=== PATIENT | female | born 1950 | race Caucasian/White ===

== ENCOUNTER 2017-08-09 06:06 | Observation (INO) | payer MEDICARE ==
[2017-08-09] MEDS ORDERED: BENADRYL 50 MG/ML IV ONE (06:19)
[2017-08-09] MEDS ORDERED: Hydromorphone 1 mg/ml Ampule IV ONE (06:19)
--- NOTE | 2017-08-09 06:24 | ERPHSYRPT ---
- History of Present Illness Time Seen by Provider: 08/09/17 06:11 Source: patient Physician History: CC: back pain Hx: 67 y/o patient of BRANDON Castro and Dr Ch. She has hx of DM, CABG last year. She had prior lumbar spine fracture. She fell about a week ago and has progressively worse low lumbar back pain. Could not sleep due to pain. Took medication without relief. She also has nausea and chest pain. She went to [facility] ER Thursday for chest pain and reports CT scan and testing. Was told to get her esophagus checked. She has some increased pain in chest and back with lifting, bending, and exertion. No cough, urinary problems, difficulty breathing. No abd pain. She has nausea. Severity: moderate, severe Allergies/Adverse Reactions: morphine Allergy (Verified 08/09/17 06:41) staets causes pain from head to toe Home Medications: Aspirin [Aspirin EC] 81 mg PO DAILY 05/17/16 [History] Atorvastatin Calcium [Lipitor] 80 mg PO DAILY 05/17/16 [History] Calcium Carbonate/Vitamin D3 [Calcium 600 + Vit D Caplet] 1 each PO DAILY [History] Fluoxetine HCl [Prozac] 60 mg PO DAILY 05/17/16 [History] Metoprolol Succinate 25 mg Xl* [Toprol-Xl 25MG Tablets] 12.5 mg PO BID [History] Insulin Glargine,Hum.rec.anlog [Sonal Reyes] 30 unit SQ DAILY 07/18/16 [ History] Hx Tetanus, Diphtheria Vaccination/Date Given: No Hx Influenza Vaccination/Date Given: No Hx Pneumococcal Vaccination/Date Given: No - Review of Systems Constitutional: No Fever, No Chills Eyes: No Symptoms Ears, Nose, & Throat: No Symptoms Respiratory: No Cough, No Dyspnea Cardiac: Chest Pain Abdominal/Gastrointestinal: Nausea, No Abdominal Pain, No Vomiting, No Diarrhea Genitourinary Symptoms: No Dysuria Musculoskeletal: Back Pain (lumbar), Fall (last week), No Neck Pain Skin: No Rash Neurological: No Dizziness, No Focal Weakness, No Headache, No Parasthesia All Other Systems: Reviewed and Negative - Past Medical History Pertinent Past Medical History: Yes Neurological History: No Pertinent History ENT History: No Pertinent History Cardiac History: Myocardial Infarction (SC), Other Respiratory History: No Pertinent History Endocrine Medical History: Diabetes Type II Musculoskeletal History: Fractures (lumbar) GI Medical History: GERD History: No Pertinent History Psycho-Social History: Depression Female Reproductive Disorders: No Pertinent History Other Medical History: Pacemaker, orthostatic hypertension - Past Surgical History Past Surgical History: Yes Neuro Surgical History: No Pertinent History Cardiac: CABG, Cardiac Catheterization, Cardiac Stent Respiratory: No Pertinent History Gastrointestinal: Cholecystectomy Genitourinary: No Pertinent History Musculoskeletal: No Pertinent History Female Surgical History: Hysterectomy - Social History Smoking Status: Never smoker Exposure to second hand smoke: No Alcohol Use: None Drug Use: none Patient Lives Alone: No Significant Family History: heart disease, hypertension - Nursing Vital Signs Nursing Vital Signs: Initial Vital Signs Temperature 98.0 F 08/09/17 06:06 Pulse Rate 80 08/09/17 06:06 Respiratory Rate 20 08/09/17 06:06 Blood Pressure 180/91 08/09/17 06:06 O2 Sat by Pulse Oximetry 97 08/09/17 06:06 Pain Scale Pain Intensity 6 - Physical Exam General Appearance: alert, other (sallow appearance) Eye Exam: PERRL/EOMI Ears, Nose, Throat Exam: normal ENT inspection, moist mucous membranes Neck Exam: normal inspection, non-tender, supple Respiratory Exam: normal breath sounds, lungs clear Cardiovascular Exam: regular rate/rhythm, No murmur Gastrointestinal/Abdomen Exam: soft, No tenderness, No distention, No mass, No guarding Back Exam: normal inspection, vertebral tenderness (upper lumbar area), No rash Extremity Exam: normal inspection, normal range of motion Neurologic Exam: alert, oriented x 3, cooperative, section hand II-XII nml as tested, sensation nml, No motor deficits Skin Exam: warm, dry, No rash - Course Nursing assessment & vital signs reviewed: Yes EKG Interpreted by Me: RATE (67), Sinus Rhythm, Left [place] Deviation, LAFB, Other (QTc 392; Precordial ST depression similar but more pronounced than that of prior tracing) - Radiology Exams cxr X-ray Interpretation: Interpreted by me (DJD spine, pacemaker, post sternotomy, no acute findings) lumbar X-ray Interpretation: Interpreted by me (Mild L2 anterior compression age undetermined, calcified aorta without aneurysmal dilatation) Ordered Tests: Active Orders 24 hr Category Date Time Status Cath for Specimen-[facility] STAT Care 08/09/17 06:18 Active EKG-ER Only STAT Care 08/09/17 06:17 Active IV Insertion STAT Care 08/09/17 06:17 Active CHEST 2 VIEWS (PA AND LAT) Stat Exams 08/09/17 06:37 Taken LUMBAR LIMITED (2 OR 3 VIEWS) Stat Exams 08/09/17 06:18 Taken CBC W DIFF Stat Lab 08/09/17 06:29 Completed CMP Stat Lab 08/09/17 06:29 Completed LIPASE Stat Lab 08/09/17 06:29 Completed TROPONIN Q3H Lab 08/09/17 06:30 Completed TROPONIN Q3H Lab 08/09/17 09:30 Ordered TROPONIN Q3H Lab 08/09/17 12:30 Ordered TROPONIN Q3H Lab 08/09/17 15:30 Ordered TROPONIN Q3H Lab 08/09/17 18:30 Ordered UA W/RFX UR CULTURE Stat Lab 08/09/17 06:18 Ordered Medication Summary Generic Name Dose Route Start Last Admin Trade Name Freq PRN Reason Stop Dose Admin Sodium Chloride 1,000 mls @ 50 mls/hr 08/09/17 07:00 08/09/17 07:00 Sodium Chloride 0.9% 1000 Ml IV 09/08/17 06:59 50 mls/hr .Q20H GENIA Administration Discontinued Medications Generic Name Dose Route Start Last Admin Trade Name Freq PRN Reason Stop Dose Admin Aspirin 162 mg 08/09/17 06:32 08/09/17 06:59 Baby Aspirin 81 Mg Chew PO 08/09/17 06:33 162 mg STAT ONE Administration Aspirin Confirm 08/09/17 06:47 Baby Aspirin 81 Mg Chew Administered 08/09/17 06:48 Dose 162 mg .ROUTE .STK-MED ONE Diphenhydramine HCl 25 mg 08/09/17 06:19 08/09/17 07:00 Benadryl 50 Mg/Ml IV 08/09/17 06:20 25 mg STAT ONE Administration Diphenhydramine HCl Confirm 08/09/17 06:47 Benadryl 50 Mg/Ml Administered 08/09/17 06:48 Dose 50 mg .ROUTE .STK-MED ONE Hydromorphone HCl 1 mg 08/09/17 06:19 08/09/17 06:59 Hydromorphone 1 Mg/Ml Ampule IV 08/09/17 06:20 1 mg STAT ONE Administration Hydromorphone HCl Confirm 08/09/17 06:47 Hydromorphone 1 Mg/Ml Ampule Administered 08/09/17 06:48 Dose 1 mg .ROUTE .STK-MED ONE Nitroglycerin 1 gm 08/09/17 07:26 08/09/17 07:30 Nitro-Bid 2% Ud Packets TOP 08/09/17 07:27 1 gm STAT ONE Administration Nitroglycerin Confirm 08/09/17 07:27 Nitro-Bid 2% Ud Packets Administered 08/09/17 07:28 Dose 1 gm .ROUTE .STK-MED ONE Ondansetron HCl 4 mg 08/09/17 07:26 08/09/17 07:30 Zofran 4 Mg/2 Ml Vial IV 08/09/17 07:27 4 mg STAT ONE Administration Ondansetron HCl Confirm 08/09/17 07:27 Zofran 4 Mg/2 Ml Vial Administered 08/09/17 07:28 Dose 4 mg .ROUTE .STK-MED ONE Lab/Rad Data: Laboratory Result Diagrams 08/09/17 06:29 08/09/17 06:29 Laboratory Results 08/09/17 08/09/17 08/09/17 Range/Units 06:30 06:29 06:29 WBC 7.0 (4.0-10.5) K/mm3 RBC 4.68 (4.1-5.4) M/mm3 Hgb 12.8 (12.0-16.0) gm/dl Hct 39.8 (35-47) % MCV 85.0 (78-100) fl MCH 27.4 (26-32) pg MCHC 32.2 (32-36) g/dl RDW 13.4 (11.5-14.0) % Plt Count 225 (150-450) K/mm3 MPV 10.0 H (6-9.5) fl Gran % 44.1 (36.0-66.0) % Lymphocytes % 40.5 (24.0-44.0) % Monocytes % 11.0 (0.0-12.0) % Eosinophils % 4.0 (0.00-5.0) % Basophils % 0.4 (0.0-0.4) % Basophils # 0.03 (0-0.4) Sodium 140 (136-145) mEq/L Potassium 4.2 (3.5-5.1) mEq/L Chloride 102 (98-107) mEq/L Carbon Dioxide 28.1 (21-32) mEq/L Anion Gap 13.8 (5-15) MEQ/L BUN 16 (9-20) mg/dL Creatinine 0.95 (0.55-1.30) mg/dl Estimated GFR > 60 ML/MIN Glucose 149 H (70-110) MG/DL Calcium 9.3 (8.5-10.1) mg/dL Total Bilirubin 0.40 (0.2-1.0) mg/dL AST 22 (15-37) U/L ALT 22 (12-78) U/L Alkaline Phosphatase 146 H (46-116) U/L Troponin I < 0.017 (0.000-0.056) ng/ml Serum Total Protein 7.5 (6.4-8.2) gm/dL Albumin 3.5 (3.4-5.0) g/dL Lipase 282 (73-393) U/L - Progress Progress Note: 08/09/17 07:30 Reviewed records from [facility]. CTA chest negative for TAD or PE. There was question of distal esophageal issue. Pt was given dilaudid and benadryl with some improvement in pain. She still has chest pressure. Will add NTG. She has nausea so will give zofran. She agrees for observation. Can get tele consult with Dr Ch. Called Dr Lewis (oc) who will place in tele obs. Discussed with : Debbie Will see patient in: hospital (observation) Counseled pt/family regarding: lab results, diagnosis, need for follow-up, rad results - Departure Time of Disposition: 07:32 Departure Disposition: Observation (Tele) Clinical Impression: Chest pain, rule out acute myocardial infarction, Back pain, L2 compression fracture age indeterminan, Type 2 diabetes mellitus Condition: Fair Critical Care Time: No Referrals: EMELINA CASTRO [Primary Care Provider] -
[2017-08-09] MEDS ORDERED: BABY ASPIRIN 81 MG CHEW PO ONE (06:32)
[2017-08-09 06:33] LABS: BASOPHIL % 0.4 % (0.0-0.4); Granulocytes % 44.1 % (36.0-66.0); Lymphocytes % 40.5 % (24.0-44.0); Mean Corpuscular Hemoglobin 27.4 pg (26-32); Platelet Count 225 K/mm3 (150-450); Red Blood Count 4.68 M/mm3 (4.1-5.4); Red Cell Distribution Width 13.4 % (11.5-14.0)
[2017-08-09] MEDS ORDERED: BENADRYL 50 MG/ML ONE (06:47)
[2017-08-09] MEDS ORDERED: BABY ASPIRIN 81 MG CHEW ONE (06:47)
[2017-08-09] MEDS ORDERED: Hydromorphone 1 mg/ml Ampule ONE (06:47)
[2017-08-09] MEDS ORDERED: Sodium Chloride 0.9% 1000 ML 1,000 ML ONE (06:51)
[2017-08-09] MEDS ORDERED: Sodium Chloride 0.9% 1000 ML 1,000 ML IV SCH (07:00)
[2017-08-09 07:04] LABS: ALBUMIN 3.5 g/dL (3.4-5.0); ALKALINE PHOSPHATASE 146 U/L (46-116); ANION GAP 13.8 MEQ/L (5-15); BLOOD UREA NITROGEN 16 mg/dL (9-20); CHLORIDE 102 mEq/L (98-107); Carbon Dioxide 28.1 mEq/L (21-32); Glucose 149 MG/DL (70-110); LIPASE 282 U/L (73-393); Potassium 4.2 mEq/L (3.5-5.1); SGOT/AST 22 U/L (15-37); SGPT/ALT 22 U/L (12-78); SODIUM 140 mEq/L (136-145); Total Protein 7.5 gm/dL (6.4-8.2)
[2017-08-09] MEDS ORDERED: Zofran 4 MG/2 ML VIAL IV ONE (07:26)
[2017-08-09] MEDS ORDERED: NITRO-BID 2% UD PACKETS TOP ONE (07:26)
[2017-08-09] MEDS ORDERED: Zofran 4 MG/2 ML VIAL ONE (07:27)
[2017-08-09] MEDS ORDERED: NITRO-BID 2% UD PACKETS ONE (07:27)
[2017-08-09] MEDS ORDERED: Pepcid 20 MG VIAL IV ONE ×2 (07:33→07:39)
[2017-08-09 07:43] LABS: ADD URINE CULTURE? YES (NO); Bacteria FEW /HPF (NEGATIVE); Bilirubin NEGATIVE (NEGATIVE); COMPLETE URINE MICROSCOPIC? YES; Collection Type CATH; Glucose NEGATIVE (NEGATIVE); Leukocyte Esterase TRACE (NEGATIVE); WBC 0-2 /HPF (0-5)
--- NOTE | 2017-08-09 07:58 | XRAY ---
Indication: Chest/back pain. Comparison: May 17, 2016. PA/lateral chest remains clear. Heart is not enlarged again demonstrating previous CABG surgery. New left-sided dual-lead pacemaker without complications. Bony thorax intact again with mild degenerative changes. Impression: Nonacute chest.
--- NOTE | 2017-08-09 08:00 | XRAY ---
Indication: Back pain. Comparison: CT lumbar spine January 25, 2016. 3 views of the lumbar spine again demonstrates normal alignment, minimal multilevel degenerative endplate spurring, mild remote appearing superior L2 endplate fracture, and scattered aortoiliac calcifications. No new/acute findings.
[2017-08-09] MEDS ORDERED: MAALOX ES 30 ML UNIT DOSE PO PRN (08:07)
[2017-08-09] MEDS ORDERED: MILK OF MAGNESIA 30 ML PO PRN (08:07)
[2017-08-09] MEDS ORDERED: NovoLOG Insulin SQ PRN (08:07)
[2017-08-09] MEDS ORDERED: Senokot-S Tablet PO PRN (08:07)
[2017-08-09] MEDS ORDERED: Zofran 4 MG/2 ML VIAL IV PRN (08:07)
[2017-08-09] MEDS ORDERED: TYLENOL 325 MG PO PRN (08:07)
[2017-08-09] MEDS ORDERED: Sodium Chloride 0.9% 500 ML 500 ML IV SCH (08:07)
[2017-08-09] MEDS ORDERED: Ecotrin 325 MG PO SCH (10:00)
[2017-08-09] MEDS: Pepcid 20 MG VIAL IV SCH ×2 (10:26→22:22)
--- NOTE | 2017-08-09 12:03 | PCM.SSS ---
History of Present Illness - Chief Complaint Chief Complaint: Chest Pain r/o DC, Back pain, L2 compression, DM II History of Present Illness: is a 67 year old female pt with PMHx DM, CAD with hx DC, CABG and pacemaker; pt of Emelina Castro NP, who came to ER c/o chest pain. Pain started 2d ago, substernal/central, aching, 6/10, radiating to bilat shoulders and arms , with nausea, no SOB, + palpitations. Lasted several hours at a time; intermittent. She had been c/o back pain (approx T10) all week. he had a fall 1 week ago. Hx remote lumbar fx. She had been to the ER on 08/04/17 at [facility] and had CT of the chest, neg for PE. However it showed linear debris in the distal esophagus; they recommended follow up with fluoroscopic esophogram (she has an EKG scheduled for Oct 10, 2017). - Review of Systems Cardiac: Chest Pain, Palpitations Abdominal/Gastrointestinal: Nausea (chronic), Diarrhea (x1 here) Musculoskeletal: Back Pain Neurological: Dizziness (chronic) Psychological: Anxiety, No Depression, No Suicidal Ideations, No Homicidal Ideations All Other Systems: Reviewed and Negative Medications & Allergies Home Medications: Home Medication List Atorvastatin Calcium [Lipitor] 80 mg PO DAILY 05/17/16 [History Confirmed ] Fluoxetine HCl [Prozac] 40 mg PO DAILY 05/17/16 [History Confirmed 08/09/17] Insulin Glargine,Hum.rec.anlog [Sonal Reyes] 50 unit SQ QAM 07/18/16 [ History Confirmed 08/09/17] Hydrocodone Bit/Acetaminophen [[place] 5-325 Tablet] 1 tab PO Q4HPRN PRN 08/09/17 [History Confirmed 08/09/17] Meloxicam 7.5 mg PO DAILY 08/09/17 [History Confirmed 08/09/17] Metoclopramide HCl [Reglan] 10 mg PO TID 08/09/17 [History Confirmed 08/09/17] Allergies/Adverse Reactions: Allergies Allergy/AdvReac Type Severity Reaction Status Date / Time morphine Allergy Verified 08/09/17 06:41 - Past Medical History Past Medical History: Yes Neurological History: No Pertinent History ENT History: Other Cardiac History: Angina, Coronary Artery Disease, Hypertension, Myocardial Infarction (DC), Other Respiratory History: No Pertinent History Endocrine Medical History: Diabetes Type II Musculoskelatal History: Fractures, Osteoarthritis GI Medical History: GERD History: No Pertinent History Pyscho-Social History: Depression Reproductive Disorders: Other Comment: Pacemaker, orthostatic hypertension, CABG, fx L2, states vision needs checked- has been having trouble seeing - Female History Are you now?: No - Past Surgical History Past Surgical History: Yes Neuro Surgical History: No Pertinent History Cardiac History: CABG, Cardiac Catheterization, Cardiac Stent Respiratory Surgery: No Pertinent History GI Surgical History: Cholecystectomy Genitourinary Surgical Hx: No Pertinent History Musculskeletal Surgical Hx: No Pertinent History Female Surgical History: Hysterectomy - Social History Smoking Status: Never smoker Exposure to second hand smoke: No Alcohol: None Drug Use: none Significant Family History: heart disease, hypertension - Physical Exam Vital Signs: Vital Signs - 24 hr Temp Pulse Resp BP Pulse Ox 08/09/17 11:14 98.2 F 64 16 94/50 94 L 08/09/17 08:31 97.7 F 65 16 133/63 94 L 08/09/17 08:07 97.7 F 65 16 133/63 94 L 08/09/17 07:37 65 152/67 95 08/09/17 07:20 64 20 168/91 98 08/09/17 06:06 98.0 F 80 20 180/91 97 General Appearance: no apparent distress, alert, obese Neurologic Exam: oriented x 3, cooperative Eye Exam: eyes nml inspection Ears, Nose, Throat Exam: moist mucous membranes Neck Exam: normal inspection, supple Respiratory Exam: normal breath sounds, lungs clear, No crackles/rales, No rhonchi, No wheezing Cardiovascular Exam: regular rate/rhythm, normal heart sounds, No murmur Gastrointestinal/Abdomen Exam: soft, normal bowel sounds, tenderness (diffuse generalized mild) Back Exam: normal inspection, No rash Extremity Exam: normal inspection, No pedal edema, No swelling Skin Exam: normal color, warm, dry, No rash Results - Labs Lab/Micro Results: Accuchecks Date 08/09/17 Time 11:30 Accucheck Value: 122 Lab Results-Last 24 Hours 08/09/17 Range/Units 09:35 Troponin I < 0.017 (0.000-0.056) ng/ml Accuchecks Date 08/09/17 Time 11:30 Accucheck Value: 122 - Other Procedures and Tests Respiratory Therapy 08/09/17 14:30 EKG ONCE 08/10/17 05:00 EKG ONCE 08/11/17 05:00 EKG ONCE 08/12/17 05:00 EKG ONCE Assessment/Plan (1) Chest pain, rule out acute myocardial infarction Current Visit: Yes Status: Acute Assessment & Plan: The Troponins are negative x 2. After 5 negative troponins will likely d/c home to f/u with Emelina Castro. Code(s): R07.9 - CHEST PAIN, UNSPECIFIED (2) Back pain Current Visit: Yes Status: Acute Qualifiers: Back pain location: thoracic back pain Chronicity: acute Back pain laterality: midline Qualified Code(s): M54.6 - Pain in thoracic spine Assessment & Plan: Will do thoracic xr. Likley just exacerbation of arthritic back pain due to recent fall. Will change IV to po pain meds, if she tolerates them well later today she may be able to d/c home. Code(s): M54.9 - DORSALGIA, UNSPECIFIED (3) Type 2 diabetes mellitus Current Visit: Yes Status: Acute Qualifiers: Diabetes mellitus complication status: without complication Diabetes mellitus roasterman insulin use: without roasterman use Qualified Code(s): E11.9 - Type 2 diabetes mellitus without complications Assessment & Plan: BS 122 here (4) Coronary artery disease Current Visit: No Status: Acute Qualifiers: Coronary Disease-Associated Artery/Lesion type: bypass graft [place] vs. transplanted heart: [place] heart Associated angina: with unspecified angina Qualified Code(s): I25.709 - Atherosclerosis of coronary artery bypass graft(s) , unspecified, with unspecified angina pectoris Code(s): I25.10 - ATHSCL HEART DISEASE OF [place] CORONARY ARTERY W/O ANG PCTRS (5) Esophageal abnormality Current Visit: Yes Status: Acute Assessment & Plan: On CT scan, unable to characterize per report (from 08/04/17) - will have pt follow up outpatient with Emelina You. The suggestion in the CT report was to f /u with an fluoroscopic esophagram. Code(s): K22.9 - DISEASE OF ESOPHAGUS, UNSPECIFIED Hospital Summary - Hospital Course Hospital Course: Pt admitted with CP and back pain, troponins are negative so far. XR lumbar spine neg for acute fracture; will XR thoracic spine. If troponins continue to be negative and her back pain is controlled on po meds will d/c home for f/u with Emelina Castro. Of note, her recent CT chest from [facility] showed linear densities in the esophagus; possibly food bolus but vs mass so needs outpatient follow up. She is scheduled for EGD on Oct 10, 2017. - Vitals & Intake/Output Vital Signs: Vital Signs Temperature 98.2 F 08/09/17 11:14 Pulse Rate 64 08/09/17 11:14 Respiratory Rate 16 08/09/17 11:14 Blood Pressure 94/50 08/09/17 11:14 O2 Sat by Pulse Oximetry 94 L 08/09/17 11:14 Intake & Output: Intake & Output 08/06/17 08/07/17 08/08/17 08/09/17 11:59 11:59 11:59 11:59 Intake Total 480 Output Total 300 Balance 180 Weight 76.345 kg - Lab Result Diagrams: 08/09/17 06:29 08/09/17 06:29 Lab Results-Last 24 Hrs: Accuchecks Date 08/09/17 Time 11:30 Accucheck Value: 122 Lab Results-Last 24 Hours 08/09/17 Range/Units 09:35 Troponin I < 0.017 (0.000-0.056) ng/ml Micro Results-Entire Visit: Accuchecks Date 08/09/17 Time 11:30 Accucheck Value: 122 - Procedures and Test Procedures and Tests throughout Hospitalization: Therapy Orders & Screens 08/09/17 08:58 OT Screen per Nursing Assess Comment: Protocol Order Physician Instructions: Greater than 3 points order OT Admission Screening Reason For Exam: Triggered on Admission Diagnosis: Chest Pain r/o DC, Back pain, L2 compression, DM II Open Wound/Cellutlitis/Pressure Ulcers: No Acute Fx/ORIF/Change in wt bearing status: No Severe MUSCULOSKELETAL pain: Yes ADL Dysfunction: Yes Acute CVA w/Hemiparesis/Hemiplegia: No Decreased Functional Mobility/Strength: Yes Sprain/Strain: No Acute Post-op Mobility Dysfunction: No Total Points: 9 PT Screen per Nursing Assess Comment: Protocol Order Physician Instructions: Greater than 3 points order PT Admission Screenin Reason For Exam: Triggered on Admission Diagnosis: Chest Pain r/o DC, Back pain, L2 compression, DM II Open Wound/Cellutlitis/Pressure Ulcers: No Acute Fx/ORIF/Change in wt bearing status: No Severe MUSCULOSKELETAL pain: Yes ADL Dysfunction: Yes Acute CVA w/Hemiparesis/Hemiplegia: No Decreased Functional Mobility/Strength: Yes Sprain/Strain: No Acute Post-op Mobility Dysfunction: No Total Points: 9 ST Screen per Nursing Assess Comment: Protocol Order Physician Instructions: Greater than [address] Admission Screening Reason For Exam: Triggered on Admission Diagnosis: Chest Pain r/o DC, Back pain, L2 compression, DM II CVA/Dyshpagia/Aphasia: No Cognitive Deficits: No Dehydration/Nutrition Deficit: No Reflux: Yes Oral-Motor Difficulties: Yes Pneumonia: No Retirement Resident: No Total Points: 6 08/09/17 14:30 EKG ONCE Comment: 08/10/17 05:00 EKG ONCE Comment: 08/11/17 05:00 EKG ONCE Comment: 08/12/17 05:00 EKG ONCE Comment: - Discharge Disposition: Home, Self-Care Condition: Stable Prescriptions: No Action Fluoxetine HCl [Prozac] 40 mg PO DAILY Atorvastatin Calcium [Lipitor] 80 mg PO DAILY Insulin Glargine,Hum.rec.anlog [Sonal Reyes] 50 unit SQ QAM Meloxicam 7.5 mg PO DAILY Hydrocodone Bit/Acetaminophen [[place] 5-325 Tablet] 1 tab PO Q4HPRN PRN PRN Reason: Pain Metoclopramide HCl [Reglan] 10 mg PO TID Follow up with: EMELINA CASTRO [Primary Care Provider] -
[2017-08-09] MEDS ORDERED: Norco 10/325 MG Tablet PO PRN (13:07)
[2017-08-09] MEDS: NITRO-BID 2% UD PACKETS TOP SCH ×2 (13:19→22:21)
[2017-08-09] MEDS ORDERED: POTASSIUM CHLORIDE 20 mEq IN WATER 100ML 20 MEQ/100 ML BAG IV ONE (13:33)
[2017-08-09] MEDS ORDERED: Mobic 7.5 MG PO PRN (14:21)
[2017-08-09] MEDS ORDERED: Reglan 10 MG PO PRN (14:47)
[2017-08-09] MEDS ORDERED: NORCO 5/325 MG PO PRN (14:47)
[2017-08-09] MEDS ORDERED: Lantus Insulin SQ SCH (15:00)
[2017-08-09] MEDS ORDERED: ENOXAPARIN SODIUM SQ SCH (15:15)
[2017-08-09] MEDS: Prozac 20 MG PO SCH ×2 (15:39→15:52)
--- NOTE | 2017-08-09 19:44 | XRAY ---
Indication: Mid back pain. Patient fell one week ago. Comparison: CT thoracic spine January 25, 2016. AP/lateral thoracic spine again demonstrates remote T2 and T10-T12 endplate fractures with mild anterior endplate spurring. No new acute fracture, subluxation, or suspicious bony lesions. Heart is not enlarged and demonstrates interval CABG surgery and new left-sided dual-lead pacemaker. Comment: Preliminary interpretation was made by C. No discrepancy.
[2017-08-09 20:06] VITALS: BP 138/66; PULSE 61; O2SAT 94
--- NOTE | 2017-08-09 20:49 | PCM.DCORD ---
- Discharge Disposition: Home, Self-Care Condition: Stable Prescriptions: Continue Fluoxetine HCl [Prozac] 40 mg PO DAILY Atorvastatin Calcium [Lipitor] 80 mg PO DAILY Insulin Glargine,Hum.rec.anlog [Sonal Reyes] 50 unit SQ QAM Meloxicam 7.5 mg PO DAILY Hydrocodone Bit/Acetaminophen [[place] 5-325 Tablet] 1 tab PO Q4HPRN PRN PRN Reason: Pain Metoclopramide HCl [Reglan] 10 mg PO TID Follow up with: EMELINA CASTRO [Primary Care Provider] -
[2017-08-09] MEDS ORDERED: ZOCOR 20MG PO SCH (22:00)
[2017-08-10] MEDS ORDERED: NON-FORMULARY ITEM (Atorvastatin Calcium [Lipitor] 80 MG) PO SCH (10:00)
[2017-08-10] MEDS ORDERED: INSULIN GLARGINE HUM REC ANLOG 50 UNIT SQ SCH (10:00)
[2017-08-10] MEDS ORDERED: FLUZONE HIGH-DOSE 2017-18 SYR IM ONE (10:00)
== END 2017-08-09 22:05 | disposition home or self-care (01) ==
LOC: ED 06:06 → MED SURG 08:05
PROVIDERS: ADMIT Family Medicine; ATTEND Family Medicine
DX: R07.9 Chest pain, unspecified (principal); M54.6 Pain in thoracic spine; E11.9 Type 2 diabetes mellitus without complications; I25.709 Atherosclerosis of coronary artery bypass graft(s), unspecified, with unspecified angina pectoris; K22.9 Disease of esophagus, unspecified; Z79.899 Other long term (current) drug therapy
CPT/HCPCS: 82962; 93268; 96374; 99285; 36000; 96360; 96375; 93005 ×2; 81000; 36415; 83036; 83690; 85025; 80053; 84484; 87086; 71020; 72100; 72072; P9612; G0378; J1170; J1200; J1650; J2405; A9270-GY

== ENCOUNTER 2018-06-20 03:49 | Emergency (ER) | payer MEDICARE ==
[2018-06-20] MEDS ORDERED: Catapres 0.1 MG PO ONE (04:29)
[2018-06-20] MEDS ORDERED: NORCO 5/325 MG PO ONE (04:32)
--- NOTE | 2018-06-20 04:43 | ERPHSYRPT ---
- History of Present Illness Time Seen by Provider: 06/20/18 04:10 Source: patient Exam Limitations: clinical condition Patient Subjective Stated Complaint: head, neck, and back pain. fell backwards on walker approx 1930 on 06/19/2018 Triage Nursing Assessment: Pt fell backwards on walker and c/o head, neck and back pain, back pain is just below both shoulder blades, no lacerations or visible bruising, no lumps, stated that she falls often, no difficulties with strength, reports numbness and tingling in arms and legs periodically-this is a chronic issue, BP 194/91 Physician History: PATIENT WITH A HISTORY OF CORONARY ARTERY DISEASE, HYPERTENSION, FREQUENT FALLS FOR MONTHS, FELL BACKWARDS AGAINST WALL WHILE USING WALKER STRIKING THE BACK OF HER HEAD, NECK AND UPPER BACK. PATIENT COMPLAINS OF HEADACHE, DENIES LOSS OF CONSCIOUSNESS, NUMBNESS, TINGLING OR WEAKNESS IN EXTREMITIES. Occurred: just prior to arrival Reason for Fall: lost balance, fell from standing pos Injuries/Pain Location: head, neck, back Loss of Consciousness: no loss of consciousness Quality: throbbing Severity of Pain-Max: moderate Severity of Pain-Current: moderate Modifying Factors: Improves With: movement Associated Symptoms (Fall): back pain, headache, neck pain ( ) Allergies/Adverse Reactions: metoclopramide Allergy (Verified 06/20/18 04:12) morphine Allergy (Verified 06/20/18 04:08) staets causes pain from head to toe Home Medications: Atorvastatin Calcium [Lipitor] 80 mg PO DAILY 05/17/16 [History] Fluoxetine HCl [Prozac] 60 mg PO DAILY 05/17/16 [History] Insulin Glargine,Hum.rec.anlog [Sonal Reyes] 50 unit SQ QAM 07/18/16 [ History] Meloxicam 7.5 mg PO DAILY PRN 08/09/17 [History] Isosorbide Mononitrate [Isosorbide Mononitrate ER] 60 mg PO DAILY 06/20/18 [ History] Ondansetron 8 mg Odt [Ondansetron Odt 8 mg] 8 mg PO UD PRN 06/20/18 [ History] Hx Tetanus, Diphtheria Vaccination/Date Given: No Hx Influenza Vaccination/Date Given: No Hx Pneumococcal Vaccination/Date Given: No - Review of Systems Constitutional: No Fever, No Chills Eyes: No Symptoms Ears, Nose, & Throat: No Symptoms Respiratory: No Symptoms, No Cough, No Dyspnea Cardiac: No Symptoms, No Chest Pain, No Edema, No Syncope Abdominal/Gastrointestinal: No Symptoms, No Abdominal Pain, No Nausea, No Vomiting, No Diarrhea Genitourinary Symptoms: No Symptoms, No Dysuria Musculoskeletal: Back Pain, Neck Pain, Injury Skin: No Rash Neurological: Headache, No Dizziness, No Focal Weakness, No Sensory Changes Psychological: No Symptoms Endocrine: No Symptoms All Other Systems: Reviewed and Negative - Past Medical History Pertinent Past Medical History: Yes Neurological History: No Pertinent History ENT History: Other Cardiac History: Arrhythmia, Hypertension, Myocardial Infarction ([place]) Respiratory History: No Pertinent History Endocrine Medical History: Diabetes Type II Musculoskeletal History: Fractures, Osteoarthritis GI Medical History: GERD History: No Pertinent History Psycho-Social History: Depression Female Reproductive Disorders: Other Other Medical History: Pacemaker, Orthostatic hypotension, - Past Surgical History Past Surgical History: Yes Neuro Surgical History: No Pertinent History Cardiac: CABG, Cardiac Catheterization, Cardiac Stent Respiratory: No Pertinent History Gastrointestinal: Cholecystectomy Genitourinary: No Pertinent History Musculoskeletal: No Pertinent History Female Surgical History: Hysterectomy - Social History Smoking Status: Never smoker Exposure to second hand smoke: No Alcohol Use: None Drug Use: none Patient Lives Alone: No Significant Family History: heart disease, hypertension - Nursing Vital Signs Nursing Vital Signs: Initial Vital Signs Temperature 97.6 F 06/20/18 03:57 Pulse Rate 60 06/20/18 03:57 Blood Pressure 198/92 06/20/18 03:57 O2 Sat by Pulse Oximetry 98 06/20/18 03:57 Pain Scale Pain Intensity 7 - [place] Coma Score Best Eye Response ([place]): (4) open spontaneously Best Verbal Response ([place]): (5) oriented Best Motor Response ([place]): (6) obeys commands [place] Total: 15 - Physical Exam General Appearance: no apparent distress, alert Head Injury: tenderness (OCCIPITAL SCALP TENDERNESS) Eye Exam: PERRL/EOMI ENT Exam: airway nml Neck Exam: normal inspection, other (THERE IS POST CERVICAL SPINAL TENDERNESS), No tenderness Respiratory/Chest Exam: normal breath sounds, No chest tenderness, No respiratory distress Cardiovascular Exam: normal heart sounds, regular rate/rhythm Gastrointestinal Exam: soft, normal bowel sounds, No tenderness, No distention, No guarding, No ecchymosis Back Exam: normal inspection, normal range of motion, other (THERE IS THORACIC T -1 TO T-4 VERTEBRAL AND PARASPINAL TENDERNESS), No vertebral tenderness Extremity Exam: normal inspection, normal range of motion, pelvis stable, No deformities Peripheral Pulses: carotid (R): 2+, carotid (L): 2+, femoral (R): 2+, femoral (L ): 2+, dorsalis-pedis (R): 2+, dorsalis-pedis (L): 2+ Neurologic Exam: alert, oriented x 3, cooperative, sensation nml, No motor deficits Skin Exam: normal color, warm, dry SpO2 Interpretation: normal SpO2: 98 Oxygen Delivery: Room Air - CT Exams Head CT Interpretation: Tele-radiologist Report, No/Intracranial Hemorrhag Cervical Spine CT Interpretation: Tele-radiologist Report (NO ACUTE FINDINGS, THE MILD COMPRESSION AND LARGE SCHMORL'S NODE AT T2 APPEAR NORMAL) Thoracic Spine CT Interpretation: Tele-radiologist Report (MILD TO MODERATE COMPRESSION OF T2, T10,T11 AND L2 APPEAR CHRONIC) Ordered Tests: Active Orders 24 hr Category Date Time Status CERVICAL SPINE WO CONTRAST [CT] Stat Exams 06/20/18 04:24 Taken HEAD WITHOUT CONTRAST [CT] Stat Exams 06/20/18 04:24 Taken THORACIC SPINE W/O CONTRAST [CT] Stat Exams 06/20/18 04:25 Ordered BMP Stat Lab 06/20/18 05:30 Received CBC W DIFF Stat Lab 06/20/18 05:30 Completed Medication Summary Discontinued Medications Generic Name Dose Route Start Last Admin Trade Name Maribell PRN Reason Stop Dose Admin Hydrocodone Bitart/Acetaminophen 1 tab 06/20/18 04:32 06/20/18 05:17 [place] 5/325 Mg PO 06/20/18 04:33 1 tab STAT ONE Administration Hydrocodone Bitart/Acetaminophen Confirm 06/20/18 05:16 [place] 5/325 Mg Administered 06/20/18 05:17 Dose 1 tab .ROUTE .STK-MED ONE Clonidine 0.2 mg 06/20/18 04:29 06/20/18 05:17 Catapres 0.1 Mg PO 06/20/18 04:30 0.2 mg STAT ONE Administration Clonidine Confirm 06/20/18 05:16 [place] 0.1 Mg Administered 06/20/18 05:17 Dose 0.2 mg .ROUTE .STK-MED ONE Lab/Rad Data: Laboratory Result Diagrams 06/20/18 05:30 Laboratory Results 06/20/18 Range/Units 05:30 WBC 6.7 (4.0-10.5) K/mm3 RBC 4.03 L (4.1-5.4) M/mm3 Hgb 11.5 L (12.0-16.0) gm/dl Hct 35.3 (35-47) % MCV 87.6 (78-100) fl MCH 28.5 (26-32) pg MCHC 32.6 (32-36) g/dl RDW 13.2 (11.5-14.0) % Plt Count 230 (150-450) K/mm3 MPV 9.8 H (6-9.5) fl Gran % 58.6 (36.0-66.0) % Eos # (Auto) 0.18 (0-0.5) Absolute Lymphs (auto) 2.03 (1.0-4.6) Absolute Monos (auto) 0.57 (0.0-1.3) Lymphocytes % 30.1 (24.0-44.0) % Monocytes % 8.5 (0.0-12.0) % Eosinophils % 2.7 (0.00-5.0) % Basophils % 0.1 (0.0-0.4) % Absolute Granulocytes 3.95 (1.4-6.9) Basophils # 0.01 (0-0.4) - Progress Progress: improved Progress Note: 06/20/18 04:51 CATAPRES 0.2MG ORALLY, NORCO 5/325 ORALLY, BLOOD PRESSURE IMPROVED TO BP117/63 06/20/18 06:06 Counseled pt/family regarding: diagnosis, need for follow-up, rad results - Departure Time of Disposition: 06:30 Departure Disposition: Home Clinical Impression: OCCIPITAL CONTUSION, ACUTE CERVICAL STRAIN, ACUTE THORACIC STRAIN, HYPERTENSION Condition: Stable Critical Care Time: No Referrals: EMELINA CASTRO [Primary Care Provider] - Additional Instructions: BEGIN BLOOD PRESSURE MEDICINE LISINOPRIL 5 MG DAILY. NORCO 5/325 EVERY 6 HOURS NEEDED FOR PAIN. FOLLOWUP WITH YOUR PRIMARY CARE PROVIDER FOR EVALUATION OF YOUR HYPERTENSION. FOLLOW HEAD INJURY INSTRUCTIONS. Prescriptions: Lisinopril 5 mg [Zestril 5 MG] 5 mg PO DAILY #30 tablet
[2018-06-20] MEDS ORDERED: NORCO 5/325 MG ONE (05:16)
[2018-06-20] MEDS ORDERED: Catapres 0.1 MG ONE (05:16)
[2018-06-20 05:40] LABS: BASOPHIL % 0.1 % (0.0-0.4); Basophil (Absolute #) 0.01 (0-0.4); Eosinophil % 2.7 % (0.00-5.0); Eosinophil (Absolute #) 0.18 (0-0.5); Granulocyte Absolute (ANC) 3.95 (1.4-6.9); Granulocytes % 58.6 % (36.0-66.0); Hematocrit 35.3 % (35-47); Hemoglobin 11.5 gm/dl (12.0-16.0); Lymphocyte (Absolute #) 2.03 (1.0-4.6); Lymphocytes % 30.1 % (24.0-44.0); Mean Cell Volume 87.6 fl (78-100); Mean Corpuscular Hemoglobin 28.5 pg (26-32); Mean Corpuscular Hgb Concent. 32.6 g/dl (32-36); Mean Platelet Volume 9.8 fl (6-9.5); Monocyte (Absolute #) 0.57 (0.0-1.3); Monocytes % 8.5 % (0.0-12.0); Platelet Count 230 K/mm3 (150-450); Red Blood Count 4.03 M/mm3 (4.1-5.4); Red Cell Distribution Width 13.2 % (11.5-14.0); White Blood Count 6.7 K/mm3 (4.0-10.5)
[2018-06-20 06:07] LABS: ANION GAP 10.3 MEQ/L (5-15); BLOOD UREA NITROGEN 18 mg/dL (7-17); CHLORIDE 102 mmol/L (98-107); Calcium 9.4 mg/dL (8.4-10.2); Carbon Dioxide 29 mmol/L (22-30); Creatinine 1 0.76 mg/dL (0.52-1.04); Glucose 146 mg/dL (74-106); Potassium 3.8 mmol/L (3.5-5.1); SODIUM 137 mmol/L (137-145)
[2018-06-20 06:38] VITALS: BP 110/56; PULSE 62; O2SAT 92
--- NOTE | 2018-06-20 07:41 | XRAY ---
Indication: Pain following fall. Multiple contiguous axial images obtained through the head without contrast. Comparison: July 18, 2016. Again age-appropriate global atrophy and minimal periventricular degenerative micro-ischemia. Fourth ventricle is midline without hydrocephalus. Curtis-white matter differentiation preserved. Bony calvarium intact. Visualized paranasal sinuses and mastoid air cells are clear. Impression: Stable normal aging brain. No new or acute intracranial abnormalities. Comment: Preliminary interpretation was made by [facility]. No discrepancy. CTDI 49.41
--- NOTE | 2018-06-20 07:45 | XRAY ---
Indication: Pain following fall. Multiple contiguous axial images obtained through the cervical spine. Sagittal and coronal reformatted images obtained. Comparison: July 18, 2016. Axial images again negative for acute fracture, suspicious bony lesions, or spinal canal stenosis. Stable multilevel degenerative changes again greatest at the C6-C7 level. Sagittal and coronal reformatted images now demonstrate cervical lordotic straightening, positional versus paraspinal spasm. Stable C6-C7 disc space narrowing. No acute compression fracture, subluxation, or jump facet. Normal-appearing craniocervical junction. Visualized noncontrasted soft tissues again demonstrates mild bilateral carotid calcifications. Lung apices clear. CT head and CT thoracic spine reported separately. Impression: 1. New cervical lordotic straightening, positional versus paraspinal spasm. 2. Negative acute fracture/subluxation. 3. Stable multilevel degenerative changes. Comment: Preliminary interpretation was made by [facility]. No discrepancy. CTDI 62.27
--- NOTE | 2018-06-21 08:27 | XRAY ---
Indication: Pain following fall. Multiple contiguous axial images obtained through the thoracic spine. Sagittal and coronal reformatted images obtained. Comparison: January 25, 2016. CT cervical spine reported separately. Stable appearing T2 and T10-T12 endplate fractures. Also stable multilevel degenerative bridging and nonbridging endplate osteophytes. No new acute fracture, suspicious bony lesions, or spinal canal stenosis. Sagittal and coronal reformatted images demonstrate normal thoracic alignment with disc spaces maintained. Visualized soft tissues and straight stable small hiatal hernia and mild scattered vascular calcifications. Impression: 1. Stable T2 and T10-T12 endplate fractures. 2. No new or acute fracture/subluxation. 3. Stable hiatal hernia. Comment: Preliminary interpretation was made by [facility]. No discrepancy. CTDI 96.50
== END 2018-06-20 06:49 | disposition home or self-care (01) ==
LOC: ED 03:49
DX: S00.83XA Contusion of other part of head, initial encounter (principal); S16.1XXA Strain of muscle, fascia and tendon at neck level, initial encounter; S29.012A Strain of muscle and tendon of back wall of thorax, initial encounter; I10 Essential (primary) hypertension; R51 Headache; M54.9 Dorsalgia, unspecified; M54.2 Cervicalgia; Z79.899 Other long term (current) drug therapy; E11.9 Type 2 diabetes mellitus without complications; Z79.4 Long term (current) use of insulin; W01.198A Fall on same level from slipping, tripping and stumbling with subsequent striking against other object, initial encounter; Y93.9 Activity, unspecified
CPT/HCPCS: 36415; 70450; 72125; 72128; 80048; 80053; 80061; 82962; 83036; 83721; 85025; 99284; A9270-GY

== ENCOUNTER 2018-09-06 15:26 | Emergency (ER) | payer MEDICARE ==
[2018-09-06] MEDS ORDERED: ZOFRAN ODT 4 MG PO ONE (17:02)
[2018-09-06] MEDS ORDERED: Hydromorphone 1 mg/ml Ampule SQ ONE (17:02)
--- NOTE | 2018-09-06 17:02 | ERPHSYRPT ---
- History of Present Illness Time Seen by Provider: 09/06/18 16:51 Source: patient Exam Limitations: no limitations Patient Subjective Stated Complaint: pt here for a fall while trying to get in bed yesterday .she states she fallen 4 times this month,she states she lost balance and fell to the floor. Triage Nursing Assessment: pt co pain to lower back, also co mid back pain, no bruising or abrsions noted, was able to undress self Physician History: The patient is a 68-year-old female with her son complaining that she fell yesterday backwards hitting the floor causing pain to her low back. She was recently diagnosed with Parkinson's and has been falling frequently. She did not hit her head yesterday. She did not lose consciousness. She is not taking blood thinners. She has a history of back injuries. She denies problems with urination or defecation. She denies numbness or tingling. Her past medical history is significant for back pain, Parkinson's, CAD, [place], cardiac stents, cardiac pacemaker. Occurred: yesterday Reason for Fall: lost balance, fell from standing pos Injuries/Pain Location: back Loss of Consciousness: no loss of consciousness Quality: sharpness Severity of Pain-Max: moderate Severity of Pain-Current: moderate Modifying Factors: Improves With: pain medication Associated Symptoms (Fall): back pain Allergies/Adverse Reactions: metoclopramide Allergy (Verified 09/06/18 16:02) morphine Allergy (Verified 09/06/18 16:02) staets causes pain from head to toe Home Medications: Atorvastatin Calcium [Lipitor] 80 mg PO DAILY 05/17/16 [History] Fluoxetine HCl [Prozac] 60 mg PO DAILY 05/17/16 [History] Insulin Glargine,Hum.rec.anlog [Sonal Reyes] 50 unit SQ QAM 07/18/16 [ History] Meloxicam 7.5 mg PO DAILY PRN 08/09/17 [History] Isosorbide Mononitrate [Isosorbide Mononitrate ER] 60 mg PO DAILY 06/20/18 [ History] Alprazolam 0.5 mg [xanAX 0.5 MG] 0.5 mg DAILY 09/06/18 [History] Insulin Glargine,Hum.rec.anlog [Sonal Hicksar] 10 units DAILY 09/06/18 [ History] Metoprolol Succinate 50 mg [Toprol Xl 50 MG] 50 mg DAILY 09/06/18 [History ] Hx Tetanus, Diphtheria Vaccination/Date Given: No Hx Influenza Vaccination/Date Given: Yes Hx Pneumococcal Vaccination/Date Given: Yes Immunizations Up to Date: No - Review of Systems Constitutional: No Fever, No Chills Eyes: No Symptoms Ears, Nose, & Throat: No Symptoms Respiratory: No Cough, No Dyspnea Cardiac: No Chest Pain, No Edema, No Syncope Abdominal/Gastrointestinal: No Abdominal Pain, No Nausea, No Vomiting, No Diarrhea Genitourinary Symptoms: No Dysuria Musculoskeletal: Back Pain, Fall, Injury Skin: No Rash Neurological: No Dizziness, No Focal Weakness, No Sensory Changes Psychological: No Symptoms Endocrine: No Symptoms Hematologic/Lymphatic: No Symptoms Immunological/Allergic: No Symptoms All Other Systems: Reviewed and Negative - Past Medical History Pertinent Past Medical History: Yes Neurological History: No Pertinent History ENT History: Other Cardiac History: Arrhythmia, Hypertension, Myocardial Infarction ([place]) Respiratory History: No Pertinent History Endocrine Medical History: Diabetes Type II Musculoskeletal History: Fractures, Osteoarthritis GI Medical History: GERD History: No Pertinent History Psycho-Social History: Depression Female Reproductive Disorders: Other Other Medical History: Pacemaker, Orthostatic hypotension, parkinson, broken back and neck from fall - Past Surgical History Past Surgical History: Yes Neuro Surgical History: No Pertinent History Cardiac: CABG, Cardiac Catheterization, Cardiac Stent Respiratory: No Pertinent History Gastrointestinal: Cholecystectomy Genitourinary: No Pertinent History Musculoskeletal: No Pertinent History Female Surgical History: Hysterectomy - Social History Smoking Status: Never smoker Exposure to second hand smoke: No Alcohol Use: None Drug Use: none Patient Lives Alone: No Significant Family History: heart disease, hypertension - Female History Hx Last Menstrual Period: post Hx Now: No - Nursing Vital Signs Nursing Vital Signs: Initial Vital Signs Temperature 98.0 F 09/06/18 15:56 Pulse Rate 81 09/06/18 15:56 Respiratory Rate 16 09/06/18 15:56 Blood Pressure 172/72 09/06/18 15:56 O2 Sat by Pulse Oximetry 94 L 09/06/18 15:56 Pain Scale Pain Intensity [Back] 8 Pain Intensity 8 - [place] Coma Score Best Eye Response ([place]oy): (4) open spontaneously Best Verbal Response ([place]): (5) oriented Best Motor Response ([place]): (6) obeys commands [place] Total: 15 - Physical Exam General Appearance: mild distress Head Injury: no evidence of injury Eye Exam: PERRL/EOMI ENT Exam: airway nml Neck Exam: normal inspection, No tenderness Respiratory/Chest Exam: normal breath sounds, No chest tenderness, No respiratory distress Cardiovascular Exam: normal heart sounds, regular rate/rhythm Gastrointestinal Exam: soft, No tenderness, No distention, No guarding, No ecchymosis Rectal Exam: not done Back Exam: vertebral tenderness (lumbar spine) Extremity Exam: normal inspection, normal range of motion, pelvis stable, No deformities Neurologic Exam: alert, oriented x 3, cooperative, sensation nml, No motor deficits Skin Exam: normal color, warm, dry SpO2 Interpretation: normal SpO2: 94 Oxygen Delivery: Room Air - Radiology Exams L-Spine X-ray Interpretation: Reviewed by me, Teleradiologist Report (per Dr Joshi), Other (stable remote L2 superior endplate fx. no acute) Ordered Tests: Active Orders 24 hr Category Date Time Status LUMBAR LIMITED (2 OR 3 VIEWS) Stat Exams 09/06/18 17:02 Taken Medication Summary Discontinued Medications Generic Name Dose Route Start Last Admin Trade Name Freq PRN Reason Stop Dose Admin Hydromorphone HCl 1 mg 09/06/18 17:02 09/06/18 17:36 Hydromorphone 1 Mg/Ml Ampule SQ 09/06/18 17:03 1 mg STAT ONE Administration Hydromorphone HCl Confirm 09/06/18 17:11 Hydromorphone 1 Mg/Ml Ampule Administered 09/06/18 17:12 Dose 1 mg .ROUTE .STK-MED ONE Ondansetron HCl 4 mg 09/06/18 17:02 09/06/18 17:37 Zofran Odt 4 Mg PO 09/06/18 17:03 4 mg STAT ONE Administration Ondansetron HCl Confirm 09/06/18 17:11 Zofran Odt 4 Mg Administered 09/06/18 17:12 Dose 4 mg .ROUTE .STK-MED ONE - Progress Progress: improved Progress Note: 09/06/18 18:13 The patient received 1 mg hydromorphone by IM and 4 mg Zofran orally and is feeling better. Counseled pt/family regarding: rad results - Departure Time of Disposition: 18:11 Departure Disposition: Home Clinical Impression: Fall, Back pain Condition: Stable Critical Care Time: No Referrals: EMELINA CASTRO [Primary Care Provider] - Additional Instructions: You had a recent fall that caused low back pain. The x-ray of your lumbar spine did not show any new fractures. You were given Dilaudid 1 mg by IM and Zofran 4 mg orally in the ER. Continue to take the [place] you have at home as directed. Follow-up with your primary medical doctor as needed.
[2018-09-06 17:07] VITALS: PULSE 60
[2018-09-06] MEDS ORDERED: Hydromorphone 1 mg/ml Ampule ONE (17:11)
[2018-09-06] MEDS ORDERED: ZOFRAN ODT 4 MG ONE (17:11)
[2018-09-06 18:21] VITALS: BP 166/78; O2SAT 97
--- NOTE | 2018-09-07 09:17 | XRAY ---
Indication: Frequent falls. Parkinson's disease. Comparison: August 09, 2017. 3 views of the lumbar spine unchanged again demonstrating mild osteopenia, minimal multilevel endplate spurring, remote L2 superior endplate fracture, and scattered vascular calcifications. No new/acute bony, articular, or soft tissue abnormalities.
== END 2018-09-06 18:21 | disposition home or self-care (01) ==
LOC: ED 15:26
DX: M54.5 Low back pain (principal); W18.39XA Other fall on same level, initial encounter; Y92.009 Unspecified place in unspecified non-institutional (private) residence as the place of occurrence of the external cause; Z79.899 Other long term (current) drug therapy; I10 Essential (primary) hypertension; E11.9 Type 2 diabetes mellitus without complications; Z79.4 Long term (current) use of insulin; G20 Parkinson's disease
CPT/HCPCS: 72100; 96372; 99283; J1170; Q0162

== ENCOUNTER 2018-09-19 14:09 | Emergency (ER) | payer MEDICARE ==
--- NOTE | 2018-09-19 14:50 | ERPHSYRPT ---
- History of Present Illness Time Seen by Provider: 09/19/18 14:44 Source: patient, family Exam Limitations: no limitations Physician History: The patient is a 68-year-old female with her son complaining that she fell once again on Thursday (5 days ago). She has chronic low back pain from a back fracture and the fall has exacerbated her back pain. It is worse today than it has been all week. She no longer has any [place]. She has tried Tylenol 3 without relief. She denies any problems with urination or defecation. She denies numbness or tingling. Her past medical history is significant for low back pain, HTN, high cholesterol , DM, and anxiety. Occurred: days ago (5) Reason for Fall: lost balance, fell from standing pos Injuries/Pain Location: back Loss of Consciousness: no loss of consciousness Quality: sharpness Severity of Pain-Max: severe Severity of Pain-Current: severe Modifying Factors: Improves With: pain medication Associated Symptoms (Fall): back pain, trouble walking Allergies/Adverse Reactions: metoclopramide Allergy (Verified 09/06/18 16:02) morphine Allergy (Verified 09/06/18 16:02) staets causes pain from head to toe Home Medications: Atorvastatin Calcium [Lipitor] 80 mg PO DAILY 05/17/16 [History] Fluoxetine HCl [Prozac] 60 mg PO DAILY 05/17/16 [History] Insulin Glargine,Hum.rec.anlog [Toujeo Solostar] 50 unit SQ QAM 07/18/16 [ History] Meloxicam 7.5 mg PO DAILY PRN 08/09/17 [History] Isosorbide Mononitrate [Isosorbide Mononitrate ER] 60 mg PO DAILY 06/20/18 [ History] Alprazolam 0.5 mg [xanAX 0.5 MG] 0.5 mg DAILY 09/06/18 [History] Insulin Glargine,Hum.rec.anlog [Toujeo Solostar] 10 units DAILY 09/06/18 [ History] Metoprolol Succinate 50 mg [Toprol Xl 50 MG] 50 mg DAILY 09/06/18 [History ] Hx Tetanus, Diphtheria Vaccination/Date Given: No Hx Influenza Vaccination/Date Given: Yes Hx Pneumococcal Vaccination/Date Given: Yes - Review of Systems Constitutional: No Fever, No Chills Eyes: No Symptoms Ears, Nose, & Throat: No Symptoms Respiratory: No Cough, No Dyspnea Cardiac: No Chest Pain, No Edema, No Syncope Abdominal/Gastrointestinal: No Abdominal Pain, No Nausea, No Vomiting, No Diarrhea Genitourinary Symptoms: No Dysuria Musculoskeletal: Fall, Injury Skin: No Rash Neurological: No Dizziness, No Focal Weakness, No Sensory Changes Psychological: No Symptoms Endocrine: No Symptoms Hematologic/Lymphatic: No Symptoms Immunological/Allergic: No Symptoms All Other Systems: Reviewed and Negative - Past Medical History Pertinent Past Medical History: Yes Neurological History: No Pertinent History ENT History: Other Cardiac History: Arrhythmia, Hypertension, Myocardial Infarction ([place]) Respiratory History: No Pertinent History Endocrine Medical History: Diabetes Type II Musculoskeletal History: Fractures, Osteoarthritis GI Medical History: GERD History: No Pertinent History Psycho-Social History: Depression Female Reproductive Disorders: Other Other Medical History: Pacemaker, Orthostatic hypotension, parkinson, broken back and neck from fall - Past Surgical History Past Surgical History: Yes Neuro Surgical History: No Pertinent History Cardiac: CABG, Cardiac Catheterization, Cardiac Stent Respiratory: No Pertinent History Gastrointestinal: Cholecystectomy Genitourinary: No Pertinent History Musculoskeletal: No Pertinent History Female Surgical History: Hysterectomy - Social History Smoking Status: Never smoker Exposure to second hand smoke: No Alcohol Use: None Drug Use: none Patient Lives Alone: No Significant Family History: heart disease, hypertension - Nursing Vital Signs Nursing Vital Signs: Initial Vital Signs Temperature 97.8 F 09/19/18 14:34 Pulse Rate 62 09/19/18 14:34 Respiratory Rate 18 09/19/18 14:34 Blood Pressure 140/89 09/19/18 14:34 O2 Sat by Pulse Oximetry 99 09/19/18 14:34 Pain Scale Pain Intensity [Back] 7 Pain Intensity 7 - Moy Coma Score Best Eye Response (Moy): (4) open spontaneously Best Verbal Response (Moy): (5) oriented Best Motor Response (Moy): (6) obeys commands [place] Total: 15 - Physical Exam General Appearance: mild distress Head Injury: no evidence of injury Eye Exam: PERRL/EOMI ENT Exam: airway nml Neck Exam: normal inspection, No tenderness Respiratory/Chest Exam: normal breath sounds, No chest tenderness, No respiratory distress Cardiovascular Exam: normal heart sounds, regular rate/rhythm Gastrointestinal Exam: soft, No tenderness, No distention, No guarding, No ecchymosis Rectal Exam: not done Back Exam: vertebral tenderness (lumbar), decreased range of motion Extremity Exam: normal inspection, normal range of motion, pelvis stable, No deformities Neurologic Exam: alert, oriented x 3, cooperative, sensation nml, No motor deficits Skin Exam: normal color, warm, dry SpO2 Interpretation: normal Oxygen Delivery: Room Air - Radiology Exams L-Spine X-ray Interpretation: Interpreted by me, Negative (no change) Ordered Tests: Active Orders 24 hr Category Date Time Status LUMBAR LIMITED (2 OR 3 VIEWS) Stat Exams 09/19/18 14:55 Taken CULTURE,URINE Stat Lab 09/19/18 15:06 Received UA W/RFX UR CULTURE Stat Lab 09/19/18 15:06 Completed Medication Summary Discontinued Medications Generic Name Dose Route Start Last Admin Trade Name Freq PRN Reason Stop Dose Admin Hydromorphone HCl 0.5 mg 09/19/18 14:54 09/19/18 15:02 Hydromorphone 1 Mg/Ml Ampule IM 09/19/18 14:55 0.5 mg STAT ONE Administration Hydromorphone HCl Confirm 09/19/18 15:00 Hydromorphone 1 Mg/Ml Ampule Administered 09/19/18 15:01 Dose 1 mg .ROUTE .STK-MED ONE Lab/Rad Data: Laboratory Results 09/19/18 Range/Units 15:06 Urine Color MELITON (YELLOW) Urine Appearance CLOUDY (CLEAR) Urine pH 5.0 (5-6) Ur Specific [place] 1.017 (1.005-1.025) Urine Protein NEGATIVE (Negative) Urine Ketones NEGATIVE (NEGATIVE) Urine Blood NEGATIVE (0-5) Wei/ul Urine Nitrite NEGATIVE (NEGATIVE) Urine Bilirubin NEGATIVE (NEGATIVE) Urine Urobilinogen 4 (0-1) mg/dL Ur Leukocyte Esterase SMALL (NEGATIVE) Urine WBC (Auto) 16-25 (0-5) /HPF Urine RBC (Auto) 0-2 (0-2) /HPF U Hyaline Cast (Auto) 0-2 (0-2) /LPF U Epithel Cells (Auto) RARE (FEW) /HPF Urine Bacteria (Auto) MANY (NEGATIVE) /HPF Urine Mucus (Auto) SLIGHT (NEGATIVE) /HPF Urine Culture Reflexed YES (NO) Urine Glucose NEGATIVE (NEGATIVE) mg/dL - Progress Progress: improved Counseled pt/family regarding: rad results - Departure Time of Disposition: 15:40 Departure Disposition: Home Clinical Impression: UTI (urinary tract infection) Condition: Stable Critical Care Time: No Referrals: EMELINA CASTRO [Primary Care Provider] - Additional Instructions: You had another fall that caused low back pain. You were given Dilaudid 0.5 mg by IM ER. Take Flexeril 5 mg every 8 hours as needed. Take [place] one tablet every [address] ice on the low back as needed. You also have a UTI. Take Macrobid 100 mg 2 times a day for 7 days. Follow-up with your primary medical doctor next week. Prescriptions: Hydrocodone Bit/Acetaminophen [[place] 5-325 Tablet] 1 tab PO Q6HPRN PRN #10 tablet MDD 6 PRN Reason: Pain Cyclobenzaprine HCl [Flexeril] 5 mg PO Q8H PRN PRN #10 tablet PRN Reason: Pain Nitrofurantoin Macro 100 mg [Macrobid 100MG Capsule] 100 mg PO BID #14 cap
[2018-09-19] MEDS ORDERED: Hydromorphone 1 mg/ml Ampule IM ONE (14:54)
[2018-09-19] MEDS ORDERED: Hydromorphone 1 mg/ml Ampule ONE (15:00)
[2018-09-19 15:15] LABS: Appearance CLOUDY (CLEAR); Bacteria MANY /HPF (NEGATIVE); Bilirubin NEGATIVE (NEGATIVE); Blood NEGATIVE Ery/ul (0-5); Epithelial Cells RARE /HPF (FEW); Glucose NEGATIVE (NEGATIVE); Hyaline Casts 0-2 /LPF (0-2); Ketones NEGATIVE (NEGATIVE); Leukocyte Esterase SMALL (NEGATIVE); Mucus SLIGHT /HPF (NEGATIVE); Nitrite NEGATIVE (NEGATIVE); Protein,Urine Dip NEGATIVE (Negative); RBC 0-2 /HPF (0-2); Specific Gravity 1.017 (1.005-1.025); Urobilinogen 4 mg/dL (0-1)
[2018-09-19 16:33] VITALS: BP 136/70; PULSE 68; O2SAT 97
--- NOTE | 2018-09-19 19:43 | XRAY ---
Indication: Low back pain following fall. Comparison: September 06, 2018. 3 views of the lumbar spine unchanged again demonstrating mild osteopenia, minimal multilevel endplate spurring, remote L2 superior endplate fracture, and moderate scattered vascular calcifications. No new/acute bony, articular, or soft tissue abnormalities.
== END 2018-09-19 16:41 | disposition home or self-care (01) ==
LOC: ED 14:09
DX: N39.0 Urinary tract infection, site not specified (principal); I10 Essential (primary) hypertension; E78.00 Pure hypercholesterolemia, unspecified; E11.9 Type 2 diabetes mellitus without complications; F41.9 Anxiety disorder, unspecified; Z79.899 Other long term (current) drug therapy; I25.2 Old myocardial infarction; Z95.1 Presence of aortocoronary bypass graft; Z98.61 Coronary angioplasty status
CPT/HCPCS: 72100; 81001; 87077; 87086; 87186; 96372; 99283; J1170

== ENCOUNTER 2018-12-05 12:12 | Emergency (ER) | payer MEDICARE ==
--- NOTE | 2018-12-05 12:45 | ERPHSYRPT ---
- History of Present Illness Time Seen by Provider: 12/05/18 12:43 Source: patient, family Exam Limitations: no limitations Patient Subjective Stated Complaint: states has been falling and getting confused recently. states this am confusion got much worse and she has a headache. Triage Nursing Assessment: assisted to room per two people. gait somewhat unsteady. skin w/d, color normal, resp easy. [place]. at present time is oriented to name, place and month. unsure what time of day it is. keeps saying "my head is just all messed up". recently dx with dementia. Physician History: states has been falling and getting confused recently. states this am confusion got much worse and she has a headache. Timing/Duration: day(s) (7-10 days) Associated Symptoms: denies symptoms Allergies/Adverse Reactions: metoclopramide Allergy (Verified 09/06/18 16:02) morphine Allergy (Verified 09/06/18 16:02) staets causes pain from head to toe Home Medications: Atorvastatin Calcium [Lipitor] 80 mg PO DAILY 05/17/16 [History] Fluoxetine HCl [Prozac] 60 mg PO DAILY 05/17/16 [History] Insulin Glargine,Hum.rec.anlog [Toujeo Solostar] 50 unit SQ QAM 07/18/16 [ History] Meloxicam 7.5 mg PO DAILY PRN 08/09/17 [History] Isosorbide Mononitrate [Isosorbide Mononitrate ER] 60 mg PO DAILY 06/20/18 [ History] Alprazolam 0.5 mg [xanAX 0.5 MG] 0.5 mg DAILY 09/06/18 [History] Insulin Glargine,Hum.rec.anlog [Toujeo Solostar] 10 units DAILY 09/06/18 [ History] Metoprolol Succinate 50 mg [Toprol Xl 50 MG] 50 mg DAILY 09/06/18 [History ] Hx Tetanus, Diphtheria Vaccination/Date Given: Yes Hx Influenza Vaccination/Date Given: Yes Hx Pneumococcal Vaccination/Date Given: Yes - Review of Systems Constitutional: Other (confusion), No Fever, No Chills Eyes: No Symptoms Ears, Nose, & Throat: No Symptoms Respiratory: No Cough, No Dyspnea Cardiac: No Chest Pain, No Edema, No Syncope Abdominal/Gastrointestinal: No Abdominal Pain, No Nausea, No Vomiting, No Diarrhea Genitourinary Symptoms: No Dysuria Musculoskeletal: No Back Pain, No Neck Pain Skin: No Rash Neurological: Gait Changes, No Dizziness, No Focal Weakness, No Sensory Changes Psychological: No Symptoms Endocrine: No Symptoms All Other Systems: Reviewed and Negative - Past Medical History Pertinent Past Medical History: Yes Neurological History: No Pertinent History ENT History: Other Cardiac History: Arrhythmia, Hypertension, Myocardial Infarction ([place]) Respiratory History: No Pertinent History Endocrine Medical History: Diabetes Type II Musculoskeletal History: Fractures, Osteoarthritis GI Medical History: GERD History: No Pertinent History Psycho-Social History: Depression Female Reproductive Disorders: Other Other Medical History: Pacemaker, Orthostatic hypotension, parkinson, broken back and neck from fall - Past Surgical History Past Surgical History: Yes Neuro Surgical History: No Pertinent History Cardiac: CABG, Cardiac Catheterization, Cardiac Stent Respiratory: No Pertinent History Gastrointestinal: Cholecystectomy Genitourinary: No Pertinent History Musculoskeletal: No Pertinent History Female Surgical History: Hysterectomy - Social History Smoking Status: Never smoker Exposure to second hand smoke: Yes Alcohol Use: None Drug Use: none Patient Lives Alone: No Significant Family History: heart disease, hypertension - Female History Hx Now: No - Nursing Vital Signs Nursing Vital Signs: Initial Vital Signs Temperature 97.9 F 12/05/18 12:30 Pulse Rate 63 12/05/18 12:30 Respiratory Rate 16 12/05/18 12:30 Blood Pressure 180/74 12/05/18 12:30 O2 Sat by Pulse Oximetry 98 12/05/18 12:30 Pain Scale Pain Intensity 5 - Physical Exam General Appearance: no apparent distress, alert Eye Exam: PERRL/EOMI, eyes nml inspection Ears, Nose, Throat Exam: normal ENT inspection, TMs normal, pharynx normal, moist mucous membranes Neck Exam: normal inspection, non-tender, supple, full range of motion Respiratory Exam: normal breath sounds, lungs clear, No respiratory distress Cardiovascular Exam: regular rate/rhythm, normal heart sounds, normal peripheral pulses Gastrointestinal/Abdomen Exam: soft, normal bowel sounds, No tenderness, No mass Back Exam: normal inspection, normal range of motion, No CVA tenderness, No vertebral tenderness Extremity Exam: normal inspection, normal range of motion, pelvis stable Neurologic Exam: alert, oriented x 3, cooperative, normal mood/affect, nml cerebellar function, nml station & gait, sensation nml, No motor deficits Skin Exam: normal color, warm, dry, No rash Lymphatic Exam: No adenopathy SpO2: 98 - Course Nursing assessment & vital signs reviewed: Yes - CT Exams Head CT Interpretation: Tele-radiologist Report (no acute stroke) Ordered Tests: Active Orders 24 hr Category Date Time Status IV Insertion STAT Care 12/05/18 12:39 Active NPO (ED) STAT Care 12/05/18 12:40 Active HEAD WITHOUT CONTRAST [CT] Stat Exams 12/05/18 12:45 Taken CBC W DIFF Stat Lab 12/05/18 13:00 Completed CULTURE,URINE Stat Lab 12/05/18 13:00 Received TROPONIN Q3H Lab 12/05/18 13:00 Received TROPONIN Q3H Lab 12/05/18 15:45 Ordered TROPONIN Q3H Lab 12/05/18 18:45 Ordered TROPONIN Q3H Lab 12/05/18 21:45 Ordered TROPONIN Q3H Lab 12/06/18 00:45 Ordered UA W/RFX UR CULTURE Stat Lab 12/05/18 13:00 Completed Medication Summary Generic Name Dose Route Start Last Admin Trade Name Freq PRN Reason Stop Dose Admin Ceftriaxone Sodium/Dextrose 1 g in 50 mls @ 100 mls/hr 12/05/18 13:34 Rocephin 1 Gm-D5w 50 Ml Bag IV 12/05/18 14:03 STAT STA Lab/Rad Data: Laboratory Result Diagrams 12/05/18 13:00 Laboratory Results 12/05/18 12/05/18 Range/Units 13:00 13:00 WBC 4.9 (4.0-10.5) K/mm3 RBC 4.24 (4.1-5.4) M/mm3 Hgb 12.2 (12.0-16.0) gm/dl Hct 37.7 (35-47) % MCV 88.9 (78-100) fl MCH 28.8 (26-32) pg MCHC 32.4 (32-36) g/dl RDW 13.5 (11.5-14.0) % Plt Count 196 (150-450) K/mm3 MPV 10.4 H (6-9.5) fl Gran % 57.4 (36.0-66.0) % Eos # (Auto) 0.18 (0-0.5) Absolute Lymphs (auto) 1.54 (1.0-4.6) Absolute Monos (auto) 0.34 (0.0-1.3) Lymphocytes % 31.5 (24.0-44.0) % Monocytes % 7.0 (0.0-12.0) % Eosinophils % 3.7 (0.00-5.0) % Basophils % 0.4 (0.0-0.4) % Absolute Granulocytes 2.81 (1.4-6.9) Basophils # 0.02 (0-0.4) Urine Color YELLOW (YELLOW) Urine Appearance CLOUDY (CLEAR) Urine pH 7.0 (5-6) Ur Specific [place] 1.018 (1.005-1.025) Urine Protein NEGATIVE (Negative) Urine Ketones NEGATIVE (NEGATIVE) Urine Blood SMALL (0-5) Wei/ul Urine Nitrite NEGATIVE (NEGATIVE) Urine Bilirubin NEGATIVE (NEGATIVE) Urine Urobilinogen 4 (0-1) mg/dL Ur Leukocyte Esterase MODERATE (NEGATIVE) Urine WBC (Auto) 16-25 (0-5) /HPF Urine RBC (Auto) 6-10 (0-2) /HPF U Epithel Cells (Auto) MODERATE (FEW) /HPF Urine Bacteria (Auto) MODERATE (NEGATIVE) /HPF Urine Mucus (Auto) SLIGHT (NEGATIVE) /HPF Urine Culture Reflexed YES (NO) Urine Glucose 50 (NEGATIVE) mg/dL - Progress Progress: unchanged Counseled pt/family regarding: lab results, diagnosis, need for follow-up, rad results - Departure Departure Disposition: Home Clinical Impression: Confusion UTI (urinary tract infection) Qualifiers: Urinary tract infection type: acute pyelonephritis Qualified Code(s): N10 - Acute pyelonephritis Condition: Stable Critical Care Time: Yes Critical Care Time(excluding separately billable procedures): 30-74 minutes Referrals: EMELINA CASTRO [Primary Care Provider] - Instructions: Delirium (Confusion) (DC) Prescriptions: Ciprofloxacin [Cipro 500 MG] 500 mg PO BIDAC #14 tablet
[2018-12-05 13:20] LABS: BASOPHIL % 0.4 % (0.0-0.4); Basophil (Absolute #) 0.02 (0-0.4); Eosinophil % 3.7 % (0.00-5.0); Eosinophil (Absolute #) 0.18 (0-0.5); Granulocyte Absolute (ANC) 2.81 (1.4-6.9); Granulocytes % 57.4 % (36.0-66.0); Hematocrit 37.7 % (35-47); Hemoglobin 12.2 gm/dl (12.0-16.0); Lymphocyte (Absolute #) 1.54 (1.0-4.6); Lymphocytes % 31.5 % (24.0-44.0); Mean Cell Volume 88.9 fl (78-100); Mean Corpuscular Hemoglobin 28.8 pg (26-32); Mean Corpuscular Hgb Concent. 32.4 g/dl (32-36); Mean Platelet Volume 10.4 fl (6-9.5); Monocyte (Absolute #) 0.34 (0.0-1.3); Platelet Count 196 K/mm3 (150-450); Red Blood Count 4.24 M/mm3 (4.1-5.4); Red Cell Distribution Width 13.5 % (11.5-14.0); White Blood Count 4.9 K/mm3 (4.0-10.5)
[2018-12-05 13:25] LABS: Appearance CLOUDY (CLEAR); Bacteria MODERATE /HPF (NEGATIVE); Bilirubin NEGATIVE (NEGATIVE); Blood SMALL Ery/ul (0-5); Epithelial Cells MODERATE /HPF (FEW); Glucose 50 mg/dL (NEGATIVE); Ketones NEGATIVE (NEGATIVE); Leukocyte Esterase MODERATE (NEGATIVE); Mucus SLIGHT /HPF (NEGATIVE); Nitrite NEGATIVE (NEGATIVE); Protein,Urine Dip NEGATIVE (Negative); Specific Gravity 1.018 (1.005-1.025); Urobilinogen 4 mg/dL (0-1)
[2018-12-05] MEDS ORDERED: ROCEPHIN 1 Gm-D5w 50 ml Bag** 1 G/50 ML IVPB IV STA (13:34)
[2018-12-05] MEDS ORDERED: ROCEPHIN 1 Gm-D5w 50 ml Bag** 1 G/50 ML IVPB IV ONE (13:54)
[2018-12-05 14:00] VITALS: BP 170/60; PULSE 60; O2SAT 97
--- NOTE | 2018-12-05 20:04 | XRAY ---
Indication: Confusion. Multiple falls. Multiple contiguous axial images obtained through the head without contrast. Comparison: June 20, 2018. Stable age-appropriate global atrophy and minimal periventricular degenerative micro-ischemia bilaterally. No acute intracranial hemorrhage, abnormal extra-axial fluid collection, or mass effect. Fourth ventricle is midline without hydrocephalus. Bony calvarium intact. Minimal mucosal thickening left sphenoid sinus. Remaining visualized paranasal sinuses and mastoid air cells are clear. Impression: Nonacute senile brain. Incidental minimal paranasal sinus disease. Comment: Preliminary interpretation was made by [facility]. No discrepancy. CTDI 57.77
== END 2018-12-05 14:11 | disposition home or self-care (01) ==
LOC: ED 12:12
DX: R41.0 Disorientation, unspecified (principal); N39.0 Urinary tract infection, site not specified; R51 Headache; I10 Essential (primary) hypertension; Z79.899 Other long term (current) drug therapy; I25.2 Old myocardial infarction; Z95.0 Presence of cardiac pacemaker; G20 Parkinson's disease
CPT/HCPCS: 36000; 36415; 70450; 81001; 84484; 85025; 87086; 96365; 99284; J0696

== ENCOUNTER 2018-12-21 07:06 | Day surgery (SDC) | payer MEDICARE ==
[2018-12-21] MEDS ORDERED: DIPRIVAN 200 MG/20 ML IV ONE (07:07)
[2018-12-21] MEDS ORDERED: Lactated Ringers 1,000 ML IV ONE (07:17)
[2018-12-21] MEDS ORDERED: TETRACAINE 0.5% STERI-UNIT SOL OP ONE ×2 (08:00)
[2018-12-21] MEDS ORDERED: Lactated Ringers 1,000 ML IV SCH (08:00)
[2018-12-21] MEDS ORDERED: Ak-Dilate OPHTHALMIC*** 1.065 ML, Cyclogyl 1% OPHTH SOL 5 ML 1.065 ML, GATIFLOXACIN 0.5... OP ONE ×4 (08:00)
[2018-12-21] MEDS ORDERED: Epinephrine Preservative Free 1 MG/ML INTRAOP ONE (09:00)
[2018-12-21] MEDS ORDERED: BETADINE 5% OPHTHALMIC 30 ML OP ONE (09:00)
[2018-12-21] MEDS ORDERED: LIDOCAINE HCL 1% AMPUL 5 ML IJ ONE (09:00)
[2018-12-21] MEDS ORDERED: BSS 500 ML, Fortaz/Tazicef 1 GM** 0.2 G IO ONE ×2 (09:00)
[2018-12-21] MEDS ORDERED: Zofran 4 MG/2 ML VIAL IV PRN (09:00)
[2018-12-21] MEDS ORDERED: ACETAZOLAMIDE 250 MG TABLET PO ONE (09:00)
[2018-12-21 10:49] VITALS: BP 180/67; PULSE 73; O2SAT 98
--- NOTE | 2018-12-21 13:23 | OP ---
DATE/TIME OF OPERATION: 12/21/2018 0929 TIME DICTATED: 1235 PREOPERATIVE DIAGNOSIS: Senile cataract of left eye. POSTOPERATIVE DIAGNOSIS: Senile cataract of left eye. SURGEON: Willi Mota MD ZIPPER CUTTER: None. OPERATION: Cataract extraction of left eye with an intraocular lens implant. STANDARD __X__ COMPLEX ANESTHESIA: MAC. ___X___ Monitored anesthesia care in combination with topical and intra-cameral anesthesia (because of the established specific risk of reflux, arrhythmias, or an anxiety attack associated with ocular manipulation as well as difficulty of the distribution supervisor to manage such potentially catastrophic events while simultaneously attempting to complete the surgical procedure, it was deemed necessary for the patient's safety to have an anesthesiologist or a nurse director physical therapy present during the procedure whenever possible. The anesthesiologist or the nurse director physical therapy was utilized to monitor and regulate the intravenous sedation of the patient, so the patient was cooperative, relaxed, and comfortable). Topical anesthesia using Tetracaine eye drops together with intra cameral anesthesia using Lidocaine 1% MPF. The nurse was utilized to monitor the patient. ANESTHESIA PROVIDER: Rajat Gonzalez CRNA. COMPLICATIONS: None. BLOOD LOSS: None. INDICATIONS: The patient is undergoing cataract surgery in the hopes of eliminating the visual complaints and difficulty. PROCEDURE: After arriving at the facility's outpatient surgery area, an IV was started; the patient was given 5 mg of p.o. Versed. (If an anesthesia provider was not monitoring the patient) The patient was then given topical anesthetic Tetracaine eye drops. A cotton pellet was soaked into a solution of a combination of Zymaxid 0.5%, Shree-Synephrine 2.5% and Ocufen (other drops might have been substituted referenced in the patient's record). The pellet was inserted by the RN into the lower conjunctival cul-de-sac with a sterile forceps and left for 20 minutes. The pellet was then removed by the RN with a sterile forceps before taking the patient to the operating room. The preoperative area nurse identified the patient and marked the correct eye to be operated on. I identified the correct eye to be operated on and marked it appropriately in the outpatient surgery area. The patient was then taken into the operating room. Tetracaine eye drops were installed again in the correct eye. The eyelids and the lashes and the lid margins were scrubbed with Betadine solution. One drop of the diluted Betadine solution was placed in the conjunctival cul-de-sac for 45 seconds and then was irrigated. A drop of Tetracaine Gel was placed in the conjunctival cul-de-sac. The patient's forehead was taped to secure it during the procedure. The patient was monitored. The patient was then draped in the usual way for this procedure. An eye speculum was used to separate the eyelids. The eye was then fixated and a temporal 2.5 mm incision was made in the clear cornea temporally at the limbus. Through the incision, 0.25 cc of 1% non-preserved lidocaine was injected into the anterior chamber for intracameral anesthesia. The anterior chamber was then filled with viscoelastic. The pupil was small. I felt that it would be safer to mechanically dilate the pupil. A Malyugin ring was used at this point which dilated the pupil. That was removed at the end of the procedure prior to aspiration of the viscoelastic from the anterior chamber and posterior to the intraocular lens implant. The cataract had a great amount of cortical changes. That rendered seeing the anterior capsule difficult for a safe performance of an anterior capsulotomy. I injected an air bubble into the anterior chamber. I then injected 1 ML of vision blue solution into the anterior chamber. The vision blue solution was irrigated from the anterior chamber after 30 seconds. The anterior capsule was stained which facilitated performing the anterior capsulotomy safely. After that was completed, a cystotome was introduced into the anterior chamber and a round anterior capsulotomy was performed. The capsule was removed by a forceps. Hydrodissection was next carried utilizing a 25-gauge cannula and balanced salt solution to delineate the cortical material from the capsule and the nucleus from the cortical material. The nucleus was rotated freely into the capsular bag with no difficulty. The phaco tip of the [employer] Phacoemulsifier was introduced into the anterior chamber and two grooves were made into the nucleus 90 degrees apart. Using two spatulas resulted into the nucleus being fractured into four quadrants. The phaco tip was then used to remove each quadrant of the nucleus. Viscoelastic was used during this process to protect the corneal endothelium. Once the entire nucleus was removed, the phaco tip then was removed and the irrigation tip was introduced into the eye and the cortex was removed. The posterior capsule was polished. It was noticed that there was a tear into the posterior capsule with few vitreous strands into the pupil plan. An anterior vitrectomy was performed. A 16.00 diopter, [id number], posterior chamber lens implant, was inspected and found to be grossly normal. The implant was inserted into the implant injector cartridge; Viscoelastic again was introduced into the anterior chamber, which filled the capsular bag. The implant injector's cartridge tip was placed at the limbal wound and the posterior chamber implant was released into the capsular bag and rotated appropriately. The implant was found to be into the capsular bag and it was centered. 0.2 ml of Tri-Moxi was introduced via 27 gauge cannula into the vitreous cavity through the ciliary processes. Viscoelastic was aspirated from the anterior chamber and posterior to the intraocular lens implant from the capsular bag using the irrigating tip. The anterior chamber was irrigated and filled with 5 cc antibiotic solution (500 cc of BSS plus 2 ml of Fortaz 100 mg/ml) ( if patient was not allergic to the medication). The lips of the corneal incision were hydrated using BSS solution. The anterior chamber was checked and found to be water tight. ___X__ One drop each of antibiotic, steroid and NSAID drops (refer to chart for drops used) were placed in the conjunctival cul-de-sac of the operated eye. Patient tolerated the procedure quite well and left the operating room in satisfactory condition. DISCHARGE SUMMARY: The patient was released in stable condition. The patient and those with the patient were given an instruction sheet as of how to care for the eye after surgery as well as counseling on any abnormal laboratory studies by the postoperative RN. The patient was also given an appointment card for follow-up in the office and is to call immediately for any difficulties including but not limited to pain in the eye, decreased vision, discharge from the eye, headache and or fever. DISCHARGE DIAGNOSIS: Pseudophakia of left eye.
== END 2018-12-21 10:50 | disposition home or self-care (01) ==
LOC: SDC 07:06
PROVIDERS: ATTEND Ophthalmology
DX: H25.812 Combined forms of age-related cataract, left eye (principal); E11.9 Type 2 diabetes mellitus without complications; I51.9 Heart disease, unspecified; I10 Essential (primary) hypertension; F41.9 Anxiety disorder, unspecified; Z79.899 Other long term (current) drug therapy
CPT/HCPCS: 82962; C1780; J0171; J2704; A9270-GY

== ENCOUNTER 2019-01-25 07:20 | Day surgery (SDC) | payer MEDICARE ==
[~2019-01-25 07:20] MED LIST: Ak-Dilate OPHTHALMIC*** 1.065 ML, Cyclogyl 1% OPHTH SOL 5 ML 1.065 ML, GATIFLOXACIN 0.5... OP ONE; Lactated Ringers 1,000 ML IV ONE; Lactated Ringers 1,000 ML IV SCH; TETRACAINE 0.5% STERI-UNIT SOL OP ONE
[2019-01-25] MEDS ORDERED: DIPRIVAN 200 MG/20 ML IV ONE (07:21)
[2019-01-25] MEDS ORDERED: BETADINE 5% OPHTHALMIC 30 ML OP ONE (09:00)
[2019-01-25] MEDS ORDERED: BSS 500 ML, Fortaz/Tazicef 1 GM** 0.2 G IO ONE ×2 (09:00)
[2019-01-25] MEDS ORDERED: ACETAZOLAMIDE 250 MG TABLET PO ONE (09:00)
[2019-01-25] MEDS ORDERED: Epinephrine Preservative Free 1 MG/ML INTRAOP ONE (09:00)
[2019-01-25] MEDS ORDERED: Zofran 4 MG/2 ML VIAL IV PRN (09:00)
[2019-01-25] MEDS ORDERED: LIDOCAINE HCL 1% AMPUL 5 ML IJ ONE (09:00)
[2019-01-25 11:46] VITALS: O2SAT 100
[2019-01-25 12:04] VITALS: BP 141/76; PULSE 60
--- NOTE | 2019-01-25 14:12 | OP ---
DATE/TIME OF OPERATION: 01/25/2019 1045 TIME DICTATED: 1241 PREOPERATIVE DIAGNOSIS: Senile cataract of right eye. POSTOPERATIVE DIAGNOSIS: Senile cataract of right eye. SURGEON: Willi Mota MD PROFESSOR OF EDUCATION: None. OPERATION: Cataract extraction of right eye with an intraocular lens implant. STANDARD __X__ COMPLEX ANESTHESIA: MAC. ___X___ Monitored anesthesia care in combination with topical and intra-cameral anesthesia (because of the established specific risk of reflux, arrhythmias, or an anxiety attack associated with ocular manipulation as well as difficulty of the fine arts model to manage such potentially catastrophic events while simultaneously attempting to complete the surgical procedure, it was deemed necessary for the patient's safety to have an anesthesiologist or a nurse experimental assembler present during the procedure whenever possible. The anesthesiologist or the nurse experimental assembler was utilized to monitor and regulate the intravenous sedation of the patient, so the patient was cooperative, relaxed, and comfortable). Topical anesthesia using Tetracaine eye drops together with intra cameral anesthesia using Lidocaine 1% MPF. The nurse was utilized to monitor the patient. ANESTHESIA PROVIDER: Rajat Gonzalez CRNA. COMPLICATIONS: None. BLOOD LOSS: None. INDICATIONS: The patient is undergoing cataract surgery in the hopes of eliminating the visual complaints and difficulty. PROCEDURE: After arriving at the facility's outpatient surgery area, an IV was started; the patient was given 5 mg of p.o. Versed. (If an anesthesia provider was not monitoring the patient) The patient was then given topical anesthetic Tetracaine eye drops. A cotton pellet was soaked into a solution of a combination of Zymaxid 0.5%, Shree-Synephrine 2.5% and Ocufen (other drops might have been substituted referenced in the patient's record). The pellet was inserted by the RN into the lower conjunctival cul-de-sac with a sterile forceps and left for 20 minutes. The pellet was then removed by the RN with a sterile forceps before taking the patient to the operating room. The preoperative area nurse identified the patient and marked the correct eye to be operated on. I identified the correct eye to be operated on and marked it appropriately in the outpatient surgery area. The patient was then taken into the operating room. Tetracaine eye drops were installed again in the correct eye. The eyelids and the lashes and the lid margins were scrubbed with Betadine solution. One drop of the diluted Betadine solution was placed in the conjunctival cul-de-sac for 45 seconds and then was irrigated. A drop of Tetracaine Gel was placed in the conjunctival cul-de-sac. The patient's forehead was taped to secure it during the procedure. The patient was monitored. The patient was then draped in the usual way for this procedure. An eye speculum was used to separate the eyelids. The eye was then fixated and a temporal 2.5 mm incision was made in the clear cornea temporally at the limbus. Through the incision, 0.25 cc of 1% non-preserved lidocaine was injected into the anterior chamber for intracameral anesthesia. The anterior chamber was then filled with viscoelastic. The pupil was small. I felt that it would be safer to mechanically dilate the pupil. A Malyugin ring was used at this point which dilated the pupil. That was removed at the end of the procedure prior to aspiration of the viscoelastic from the anterior chamber and posterior to the intraocular lens implant. The cataract had a great amount of cortical changes. That rendered seeing the anterior capsule difficult for a safe performance of an anterior capsulotomy. I injected an air bubble into the anterior chamber. I then injected 1 ML of vision blue solution into the anterior chamber. The vision blue solution was irrigated from the anterior chamber after 30 seconds. The anterior capsule was stained which facilitated performing the anterior capsulotomy safely. After that was completed, a cystotome was introduced into the anterior chamber and a round anterior capsulotomy was performed. The capsule was removed by a forceps. Hydrodissection was next carried utilizing a 25-gauge cannula and balanced salt solution to delineate the cortical material from the capsule and the nucleus from the cortical material. The nucleus was rotated freely into the capsular bag with no difficulty. The phaco tip of the [employer] Phacoemulsifier was introduced into the anterior chamber and two grooves were made into the nucleus 90 degrees apart. Using two spatulas resulted into the nucleus being fractured into four quadrants. The phaco tip was then used to remove each quadrant of the nucleus. Viscoelastic was used during this process to protect the corneal endothelium. Once the entire nucleus was removed, the phaco tip then was removed and the irrigation tip was introduced into the eye and the cortex was removed. The posterior capsule was polished. It was noticed that there was a tear into the posterior capsule with few vitreous strands into the pupil plan. An anterior vitrectomy was performed. A 15.50 diopter, [id number], posterior chamber lens implant, was inspected and found to be grossly normal. The implant was inserted into the implant injector cartridge; Viscoelastic again was introduced into the anterior chamber, which filled the capsular bag. The implant injector's cartridge tip was placed at the limbal wound and the posterior chamber implant was released into the capsular bag and rotated appropriately. The implant was found to be into the capsular bag and it was centered. 0.2 ml of Tri-Moxi was introduced via 27 gauge cannula into the vitreous cavity through the ciliary processes. Viscoelastic was aspirated from the anterior chamber and posterior to the intraocular lens implant from the capsular bag using the irrigating tip. The anterior chamber was irrigated and filled with 5 cc antibiotic solution (500 cc of BSS plus 2 ml of Fortaz 100 mg/ml) ( if patient was not allergic to the medication). The lips of the corneal incision were hydrated using BSS solution. The anterior chamber was checked and found to be water tight. ___X___ One drop each of antibiotic, steroid and NSAID drops (refer to chart for drops used) were placed in the conjunctival cul-de-sac of the operated eye. Patient tolerated the procedure quite well and left the operating room in satisfactory condition. DISCHARGE SUMMARY: The patient was released in stable condition. The patient and those with the patient were given an instruction sheet as of how to care for the eye after surgery as well as counseling on any abnormal laboratory studies by the postoperative RN. The patient was also given an appointment card for follow-up in the office and is to call immediately for any difficulties including but not limited to pain in the eye, decreased vision, discharge from the eye, headache and or fever. DISCHARGE DIAGNOSIS: Pseudophakia of right eye.
== END 2019-01-25 12:15 | disposition home or self-care (01) ==
LOC: SDC 07:20
PROVIDERS: ATTEND Ophthalmology
DX: H25.811 Combined forms of age-related cataract, right eye (principal); E11.9 Type 2 diabetes mellitus without complications; I10 Essential (primary) hypertension; I51.9 Heart disease, unspecified; K21.9 Gastro-esophageal reflux disease without esophagitis; F41.9 Anxiety disorder, unspecified; Z79.899 Other long term (current) drug therapy
CPT/HCPCS: 82962; C1780; J0171; J2704; A9270-GY

== ENCOUNTER 2019-04-16 16:17 | Inpatient (IN) | payer MEDICARE ==
[2019-04-16] MEDS ORDERED: Sodium Chloride 0.9% 1000 ML 1,000 ML IV SCH (17:30)
[2019-04-16] MEDS ORDERED: Sodium Chloride 0.9% 1000 ML 1,000 ML ONE (17:35)
--- NOTE | 2019-04-16 17:39 | ERPHSYRPT ---
- History of Present Illness Time Seen by Provider: 04/16/19 17:19 Source: patient, family Exam Limitations: other (patient's son states patient has lewey body dementia) Patient Subjective Stated Complaint: fall x2 today. Fell 2-3 wks ago fx R claivcle, surgery on TUes plate and pins in R clavicle. Son states falls have been bcoming increasingly frequent since VT 3 y ago Triage Nursing Assessment: no apparent bruising to R shoulder other than characteristic from post op trauma. Physician History: This is a 69-year-old white female with history of cataracts, diabetes type 2, arrhythmia, coronary artery disease, high blood pressure, myocardial infarction , GERD, fractures, osteoarthritis, depression, pacer with history of a fracture back in the past who apparently has a history of Lewy body dementia. She is brought here by her son the son states that patient recently fell and fractured her right clavicle which she recently had surgery for he states that she's been having repeated falls he attributes some of this to possibly secondary to her taking Percocet. Patient apparently had been taking more Percocet than she was supposed to he states "this really makes her loopy" Talking to the patient she seems to be alert she is able to answer my questions she's not real good with time she did try to tell me that she fell around 4:00 however her son states that she does not fall around for that she got here around 4 she's not sure whether she hit her head. The son states that she's been falling more frequently for approximately 2 weeks. Past medical history includes cataracts, diabetes type 2, arrhythmia, coronary disease, high blood pressure, myocardial infarction, GERD, fractures, osteoarthritis, depression, cardiac pacemaker, orthostatic hypotension, fractured back secondary to a fall, lewey body dementia, CABG Past surgical history includes cardiac stent, cataract surgery, pacer, cholecystectomy, hysterectomy, right clavicular surgery. Timing/Duration: other (falling frequently for 2 weeks, felt today reinjured right shoulder and clavicle, not sure if hit head) Severity: moderate Associated Symptoms: other (frequent falls, right shoulder and clavicle pain), No nausea, No vomiting, No abdominal pain, No shortness of breath, No heartburn , No diaphoresis, No cough, No chills, No chest pain, No fever, No headaches, No loss of appetite, No malaise, No rash, No syncope, No seizure, No weakness Allergies/Adverse Reactions: metoclopramide Allergy (Intermediate, Verified 01/25/19 07:44) dystonic symptoms morphine Allergy (Verified 01/25/19 07:44) states causes pain from head to toe and tingling from head to toe Home Medications: Atorvastatin Calcium [Lipitor] 80 mg PO DAILY 05/17/16 [History] Fluoxetine HCl [Prozac] 60 mg PO DAILY 05/17/16 [History] Isosorbide Mononitrate [Isosorbide Mononitrate ER] 60 mg PO DAILY 06/20/18 [ History] Metoprolol Succinate 50 mg [Toprol Xl 50 MG] 25 mg PO DAILY 09/06/18 [ History] Aspirin EC 81 mg [Ecotrin 81 mg] 81 mg PO DAILY 12/08/18 [History] Insulin Glargine,Hum.rec.anlog [Touhiramo Solostar] 55 unit SQ DAILY 12/08/18 [ History] Pantoprazole 20 mg [Protonix 20MG Tablet] 20 mg PO DAILY 12/08/18 [History ] Lisinopril 5 mg [Zestril 5 MG] 10 mg PO DAILY 01/14/19 [History] Hx Tetanus, Diphtheria Vaccination/Date Given: Yes Hx Influenza Vaccination/Date Given: Yes Hx Pneumococcal Vaccination/Date Given: Yes - Review of Systems Constitutional: Other (frequent falls), No Fever, No Chills Eyes: No Symptoms Ears, Nose, & Throat: No Symptoms Respiratory: No Cough, No Dyspnea Cardiac: No Chest Pain, No Edema, No Syncope Abdominal/Gastrointestinal: No Abdominal Pain, No Nausea, No Vomiting, No Diarrhea Genitourinary Symptoms: No Dysuria Musculoskeletal: Other (right shoulder and clavicle pain) Skin: No Rash Neurological: Other (ffrequent falls) Psychological: Memory Loss, Other (patient apparently taking more percocet than she should) Endocrine: No Symptoms All Other Systems: Reviewed and Negative - Past Medical History Pertinent Past Medical History: Yes Neurological History: Other ENT History: Cataracts Cardiac History: Arrhythmia, Coronary Artery Disease, Hypertension, Myocardial Infarction (VT) Respiratory History: No Pertinent History Endocrine Medical History: Diabetes Type II Musculoskeletal History: Fractures, Osteoarthritis GI Medical History: GERD History: No Pertinent History Psycho-Social History: Depression Female Reproductive Disorders: Other Other Medical History: Pacemaker, Orthostatic hypotension, broken back and neck from fall, Lewy body dementia/ CABG - Past Surgical History Past Surgical History: Yes Neuro Surgical History: No Pertinent History Cardiac: CABG, Cardiac Catheterization, Cardiac Stent, Pacemaker Respiratory: No Pertinent History Gastrointestinal: Cholecystectomy Genitourinary: No Pertinent History Musculoskeletal: No Pertinent History Female Surgical History: Hysterectomy - Social History Smoking Status: Never smoker Exposure to second hand smoke: No Alcohol Use: None Drug Use: none Patient Lives Alone: No Significant Family History: heart disease, hypertension - Female History Hx Last Menstrual Period: post Hx Now: No - Nursing Vital Signs Nursing Vital Signs: Initial Vital Signs Temperature 98.7 F 04/16/19 16:27 Pulse Rate 89 04/16/19 16:27 Respiratory Rate 22 04/16/19 16:27 Blood Pressure 214/93 04/16/19 16:27 O2 Sat by Pulse Oximetry 97 04/16/19 16:27 Pain Scale Pain Intensity 9 - Physical Exam General Appearance: mild distress, alert, other (Patient oriented to person and place) Eye Exam: PERRL/EOMI, eyes nml inspection Ears, Nose, Throat Exam: normal ENT inspection, TMs normal, pharynx normal, moist mucous membranes Neck Exam: normal inspection, non-tender, supple, full range of motion Respiratory Exam: normal breath sounds, lungs clear, No respiratory distress Cardiovascular Exam: regular rate/rhythm, normal heart sounds, normal peripheral pulses, capillary refill <2 sec Gastrointestinal/Abdomen Exam: soft, normal bowel sounds, No tenderness, No mass Extremity Exam: pelvis stable, No normal inspection (patient with recent surgery to right clavicle with ecchymosis in the area sling in place) Neurologic Exam: alert, cooperative, normal mood/affect, nml cerebellar function , nml station & gait, sensation nml, No oriented x 3 (oriented to person and place), No motor deficits Skin Exam: other (ecchymosis right clavicular area) SpO2 Interpretation: normal (97%) SpO2: 97 - Course Nursing assessment & vital signs reviewed: Yes EKG Interpreted by Me: RATE (83 bpm), Sinus Rhythm, Left Birney Deviation, Other ( EKG: Sinus rhythm, 83 beats per minute, left axis deviation, left anterior fascicular block T wave inversion in lead V1 through V4) - Radiology Exams Chest X-ray Interpretation: Interpreted by me (chest x-ray: Hardware in place right clavicle pacer in place no acute disease process noted) Right Shoulder X-ray Interpretation: Interpreted by me (x-ray right shoulder: Glenohumeral joint intact, hardware in place right clavicle) - CT Exams Head CT Interpretation: Tele-radiologist Report (CT head: Impression no acute intracranial abnormality) Cervical Spine CT Interpretation: Tele-radiologist Report (CT cervical spine: Impression: Mild to moderate multilevel degenerative disc and degenerative facet change without evidence of acute fracture) Ordered Tests: Active Orders 24 hr Category Date Time Status EKG-ER Only STAT Care 04/16/19 17:29 Active IV Insertion STAT Care 04/16/19 17:29 Active CERVICAL SPINE WO CONTRAST [CT] Stat Exams 04/16/19 17:29 Taken CHEST 1 VIEW (PORTABLE) Stat Exams 04/16/19 17:27 Taken CLAVICLE Stat Exams 04/16/19 17:30 Taken HEAD WITHOUT CONTRAST [CT] Stat Exams 04/16/19 17:29 Taken SHOULDER Stat Exams 04/16/19 17:30 Taken CBC W DIFF Stat Lab 04/16/19 17:41 Completed CMP Stat Lab 04/16/19 17:41 Completed CULTURE,URINE Stat Lab 04/16/19 17:27 Uncollected TROPONIN Q3H Lab 04/16/19 17:41 Completed TROPONIN Q3H Lab 04/16/19 20:30 Ordered TROPONIN Q3H Lab 04/16/19 23:30 Ordered TROPONIN Q3H Lab 04/17/19 02:30 Ordered TROPONIN Q3H Lab 04/17/19 05:30 Ordered UA W/RFX UR CULTURE Stat Lab 04/16/19 17:27 Uncollected Urine Triage Profile Stat Lab 04/16/19 17:27 Uncollected Medication Summary Generic Name Dose Route Start Last Admin Trade Name Freq PRN Reason Stop Dose Admin Sodium Chloride 1,000 mls @ 100 mls/hr 04/16/19 17:30 04/16/19 17:58 Sodium Chloride 0.9% 1000 Ml IV 05/16/19 17:29 100 mls/hr .Q10H GENIA Administration Lab/Rad Data: Laboratory Result Diagrams 04/16/19 17:41 04/16/19 17:41 Laboratory Results 04/16/19 04/16/19 04/16/19 Range/Units 17:41 17:41 17:41 WBC 7.5 (4.0-10.5) K/mm3 RBC 3.92 L (4.1-5.4) M/mm3 Hgb 11.4 L (12.0-16.0) gm/dl Hct 36.0 (35-47) % MCV 91.8 (78-100) fl MCH 29.0 (26-32) pg MCHC 31.7 L (32-36) g/dl RDW 12.9 (11.5-14.0) % Plt Count 280 (150-450) K/mm3 MPV 9.5 (6-9.5) fl Gran % 63.7 (36.0-66.0) % Eos # (Auto) 0.26 (0-0.5) Absolute Lymphs (auto) 1.69 (1.0-4.6) Absolute Monos (auto) 0.73 (0.0-1.3) Lymphocytes % 22.7 L (24.0-44.0) % Monocytes % 9.8 (0.0-12.0) % Eosinophils % 3.5 (0.00-5.0) % Basophils % 0.3 (0.0-0.4) % Absolute Granulocytes 4.76 (1.4-6.9) Basophils # 0.02 (0-0.4) Sodium 138 (137-145) mmol/L Potassium 3.8 (3.5-5.1) mmol/L Chloride 102 (98-107) mmol/L Carbon Dioxide 27 (22-30) mmol/L Anion Gap 12.3 (5-15) MEQ/L BUN 14 (7-17) mg/dL Creatinine 0.60 (0.52-1.04) mg/dL Estimated GFR > 60.0 ML/MIN Glucose 158 H (74-106) mg/dL Calcium 9.5 (8.4-10.2) mg/dL Total Bilirubin 0.90 (0.2-1.3) mg/dL AST 30 (14-36) U/L ALT 23 (0-35) U/L Alkaline Phosphatase 115 (38-126) U/L Troponin I < 0.012 (0.000-0.034) ng/mL Serum Total Protein 7.3 (6.3-8.2) g/dL Albumin 3.8 (3.5-5.0) g/dL - Progress Progress: improved Progress Note: 04/16/19 17:39 69-year-old white female with history only body dementia and frequent falls brought by her son son states she's been falling more frequently last couple of weeks she apparently had fallen and fractured her clavicle there is a question as to whether she was taking too much Percocet. Patient does not appear to be in acute distress she does however complain of pain in her right clavicular area. Patient did have recent surgery. Will go ahead and order CT of her head and C-spine, right clavicle x-ray chest x -ray. EKG CBC CMP UA UDS. And provide IV fluids. 04/16/19 19:04 Patient's CBC CMP essentially normal. Troponin within normal limits Patient's EKG sinus rhythm, 83 beats per minute, left axis T wave depression leads V2 through V4 Patient's chest x-ray hardware in place right clavicle no pneumothorax no acute disease process noted. X-ray right shoulder hardware in place right clavicle glenohumeral joint intact. CT head no acute intracranial process CT C-spine mild to moderate multilevel degenerative disc and degenerative facet changes without evidence of acute fracture Patient's vitals are stable. Patient inspect is reviewed she has received oxycodone/acetaminophen 7.5-325 # 42 on April 10, 2019 also on April 01, 2019, she received hydrocodone 5/325 #42 on March 31, 2019 She received hydrocodone 5/325 #12 on March 29, 2019 Patient refused catheterization for urine. I could not obtain drug screen patient appears to be stable. I discussed the patient's case with Dr. Lewis. Will switch patient from Percocet to hydrocodone 10/325 one orally every 6 hours as needed for pain. Will place patient on telemetry provide IV fluids. Will request that urine be obtained on the floor by 10:00 otherwise patient will need to be catheterized. Results of urine to be relayed to Dr. Lewis . Impression frequent falls. Right clavicular pain history of right clavicle fracture with ORIF. History of lewey body dementia. 04/16/19 19:11 - Departure Departure Disposition: Observation Clinical Impression: Frequent falls, Pain of right clavicle, hx orif right clavicle, hx leweybody dementia Medication adverse effect Qualifiers: Encounter type: initial encounter Qualified Code(s): T50.905A - Adverse effect of unspecified drugs, medicaments and biological substances, initial encounter Condition: Fair Critical Care Time: No Referrals: EMELINA CASTRO [Primary Care Provider] -
[2019-04-16 17:44] LABS: BASOPHIL % 0.3 % (0.0-0.4); Basophil (Absolute #) 0.02 (0-0.4); Eosinophil % 3.5 % (0.00-5.0); Eosinophil (Absolute #) 0.26 (0-0.5); Granulocyte Absolute (ANC) 4.76 (1.4-6.9); Granulocytes % 63.7 % (36.0-66.0); Hemoglobin 11.4 gm/dl (12.0-16.0); Lymphocyte (Absolute #) 1.69 (1.0-4.6); Lymphocytes % 22.7 % (24.0-44.0); Mean Cell Volume 91.8 fl (78-100); Mean Corpuscular Hgb Concent. 31.7 g/dl (32-36); Mean Platelet Volume 9.5 fl (6-9.5); Monocyte (Absolute #) 0.73 (0.0-1.3); Monocytes % 9.8 % (0.0-12.0); Platelet Count 280 K/mm3 (150-450); Red Blood Count 3.92 M/mm3 (4.1-5.4); Red Cell Distribution Width 12.9 % (11.5-14.0); White Blood Count 7.5 K/mm3 (4.0-10.5)
[2019-04-16 17:56] LABS: ALBUMIN 3.8 g/dL (3.5-5.0); ALKALINE PHOSPHATASE 115 U/L (38-126); ANION GAP 12.3 MEQ/L (5-15); BLOOD UREA NITROGEN 14 mg/dL (7-17); CHLORIDE 102 mmol/L (98-107); Calcium 9.5 mg/dL (8.4-10.2); Carbon Dioxide 27 mmol/L (22-30); Glucose 158 mg/dL (74-106); Potassium 3.8 mmol/L (3.5-5.1); SGOT/AST 30 U/L (14-36); SGPT/ALT 23 U/L (0-35); SODIUM 138 mmol/L (137-145); Total Protein 7.3 g/dL (6.3-8.2)
--- NOTE | 2019-04-16 21:31 | XRAY ---
Indication: Frequent falls. Multiple contiguous axial images obtained through the head without contrast. Comparison: December 05, 2018. Continued stable age-appropriate global atrophy and minimal periventricular degenerative micro-ischemia bilaterally. No acute intracranial hemorrhage, abnormal extra-axial fluid collection, or mass effect. Fourth ventricle is midline without hydrocephalus. Bony calvarium intact. Stable minimal mucosal thickening left sphenoid sinus. Remaining visualized paranasal sinuses and mastoid air cells are clear. Impression: Stable nonacute senile brain again with minimal paranasal sinus disease. Comment: Preliminary interpretation was made by [facility]. No critical discrepancy. CTDI 49.11
--- NOTE | 2019-04-16 21:35 | XRAY ---
Indication: Frequent falls. Multiple contiguous axial images obtained through the cervical spine. Sagittal and coronal reformatted images obtained. Comparison: June 20, 2018. Axial images again negative for acute fracture, suspicious bony lesions, or spinal canal stenosis. Stable multilevel degenerative changes again greatest C6-C7 level. Sagittal and coronal reformatted images again demonstrate cervical lordotic straightening, C6-C7 disc space narrowing, and remote T2 fracture. Again no acute compression fracture, subluxation, or jumped facet. Normal appearing craniocervical junction. Visualized noncontrasted soft tissues again demonstrates mild bilateral carotid calcifications. Lung apices unremarkable. Impression: Stable cervical lordotic straightening, multilevel degenerative changes, and remote T2 fracture. No new/acute findings. Comment: Preliminary interpretation was made by [facility]. No critical discrepancy. CTDI 56.90
--- NOTE | 2019-04-16 21:37 | XRAY ---
Indication: Frequent falls. Comparison: None 2 views of the right shoulder demonstrates osteopenia, moderate AC degenerative arthropathy, and distal clavicle fracture with intact plate/screws. No other bony, articular, or soft tissue abnormalities. Chest reported separately.
--- NOTE | 2019-04-16 21:39 | XRAY ---
Indication: Frequent falls. Comparison: None 2 views of the right clavicle demonstrates osteopenia, moderate AC degenerative arthropathy, and distal clavicle fracture with intact plate/screws. No other bony, articular, or soft tissue abnormalities. Chest and right shoulder reported separately.
--- NOTE | 2019-04-16 21:41 | XRAY ---
Indication: Frequent falls. Comparison: August 09, 2017. Portable chest remains clear. Heart is not enlarged again with CABG surgery and left dual-lead pacemaker. Bony thorax again demonstrates osteopenia and degenerative changes with new right clavicle orthopedic plate/screws fixating fracture. Impression: Nonacute chest with chronic features.
[2019-04-16] MEDS ORDERED: Phenergan 25 MG INJ IV PRN (22:36)
[2019-04-16] MEDS: Norco 10/325 MG Tablet PO PRN (22:45)
[2019-04-16 23:05] LABS: Appearance SLIGHTLY CLOUDY (CLEAR); Bilirubin NEGATIVE (NEGATIVE); Blood SMALL Ery/ul (0-5); Epithelial Cells FEW /HPF (FEW); Glucose NEGATIVE (NEGATIVE); Ketones SMALL (NEGATIVE); Leukocyte Esterase NEGATIVE (NEGATIVE); Mucus SLIGHT /HPF (NEGATIVE); Nitrite NEGATIVE (NEGATIVE); Protein,Urine Dip NEGATIVE (Negative); Specific Gravity 1.012 (1.005-1.025); Urobilinogen 4 mg/dL (0-1); WBC 0-2 /HPF (0-5)
[2019-04-16 23:12] LABS: Amphetamine,Urine NEGATIVE (NEGATIVE); Barbiturate,Urine NEGATIVE (NEGATIVE); Benzodiazepine,Urine NEGATIVE (NEGATIVE); Cocaine,Urine NEGATIVE (NEGATIVE); Methadone,Urine NEGATIVE (NEGATIVE); Opiate,Urine POSITIVE (NEGATIVE); PCP,Urine NEGATIVE (NEGATIVE); THC,Urine NEGATIVE (NEGATIVE)
[2019-04-17] MEDS: Norco 10/325 MG Tablet PO PRN ×2 (05:05→17:11)
[2019-04-17] MEDS: Sodium Chloride 0.9% 1000 ML 1,000 ML IV SCH ×2 (05:05→15:15)
[2019-04-17 06:21] LABS: BASOPHIL % 0.5 % (0.0-0.4); Basophil (Absolute #) 0.03 (0-0.4); Eosinophil % 5.2 % (0.00-5.0); Eosinophil (Absolute #) 0.32 (0-0.5); Granulocyte Absolute (ANC) 3.25 (1.4-6.9); Granulocytes % 53.2 % (36.0-66.0); Hemoglobin 10.1 gm/dl (12.0-16.0); Lymphocyte (Absolute #) 1.87 (1.0-4.6); Lymphocytes % 30.6 % (24.0-44.0); Mean Cell Volume 92.8 fl (78-100); Mean Corpuscular Hgb Concent. 31.6 g/dl (32-36); Mean Platelet Volume 9.7 fl (6-9.5); Monocyte (Absolute #) 0.64 (0.0-1.3); Monocytes % 10.5 % (0.0-12.0); Platelet Count 249 K/mm3 (150-450); Red Blood Count 3.45 M/mm3 (4.1-5.4); White Blood Count 6.1 K/mm3 (4.0-10.5)
[2019-04-17 06:46] LABS: Mean Corpuscular Hemoglobin 29.2 pg (26-32)
[2019-04-17 06:51] LABS: ALBUMIN 3.2 g/dL (3.5-5.0); ALKALINE PHOSPHATASE 99 U/L (38-126); BLOOD UREA NITROGEN 11 mg/dL (7-17); CHLORIDE 107 mmol/L (98-107); Calcium 8.7 mg/dL (8.4-10.2); Carbon Dioxide 26 mmol/L (22-30); Creatinine 1 0.48 mg/dL (0.52-1.04); Glucose 155 mg/dL (74-106); Potassium 3.2 mmol/L (3.5-5.1); SGOT/AST 24 U/L (14-36); SGPT/ALT 19 U/L (0-35); SODIUM 139 mmol/L (137-145); Total Protein 6.4 g/dL (6.3-8.2)
[2019-04-17] MEDS ORDERED: ROCEPHIN 1 Gm-D5w 50 ml Bag** 1 G/50 ML IVPB IV SCH (10:00)
[2019-04-17] MEDS ORDERED: Miralax Powder 17GM PACKET PO PRN (10:41)
[2019-04-17] MEDS ORDERED: NON-FORMULARY ITEM (Insulin Lispro 1 UNIT) SQ SCH (10:45)
[2019-04-17] MEDS: Protonix 40MG Tablet PO SCH (10:56)
[2019-04-17] MEDS: ECOTRIN 81 MG PO SCH (10:56)
[2019-04-17] MEDS: Zestril 10 MG PO SCH (10:57)
[2019-04-17] MEDS: Prozac 20 MG PO SCH (10:57)
[2019-04-17] MEDS ORDERED: NovoLOG Insulin SQ SCH (11:00)
[2019-04-17] MEDS ORDERED: Imdur 30 MG PO SCH (11:00)
--- NOTE | 2019-04-17 13:15 | PCM.HP ---
History of Present Illness - Chief Complaint Chief Complaint: Frequent falls; Pain in right clavicle History of Present Illness: is a 69 year old female pt of [facility] in , with PMHx Lewy Body dementia, NV (3 yrs ago), DM II, CAD with stent placed, cardiac arrhythmia , HTN, GERD, OA< depression, pacemaker, and hx vertebral fx who was admitted through ER with a fall yesterday. She has apparently had increased falls over the past several weeks. Two to three weeks ago she fell and fractured her R clavicle; had to have ORIF done by Dr. Mcmahon. Afterward she was sent home on norco 5/325; her pain was severe and she went back to the ER where the GRAIN FARMER told her she HAD to get the pain under control, and to take 2 of the pain meds. She ended up getting #12 of the norco 5/325 on 03/29, then #42 on 03/31. She was then changed to percocet 7.5 (because the norco weren't working) and apparently received #42 on 04/01/19 and #42 on 04/10/19 (this info per Dr. Spangler's report of her INSPECT report last night; I cannot retrieve anything under her name this morning on INSPECT). Cervical spine and head CT non acute. CXR, cervical spine, and shoulder XR showed intact hardware s/p clavicular repair, nothing acute. On admission her WBC 7.5, now 6.1. Potassium 3.2 this morning. eGFR >60. She is only a fair historian and her son is present in the room. He states she had "gone crazy" on percocet before and he thinks this may be what happened with this fall. He said prior to the surgery she was doing great. He notes that about 5 min before I came in the room, the pt was talking and not making any sense. She has not taken any BP meds in the past 2d. - Review of Systems Ears, Nose, & Throat: Nose Congestion Abdominal/Gastrointestinal: Nausea (x2-3 d), Appetite Changes Neurological: Dizziness (intermittently - better since her stopped the imdur ), Gait Changes ("off - balance" frequently), Other (disorientation) Psychological: No Suicidal Ideations, No Homicidal Ideations All Other Systems: Reviewed and Negative Medications & Allergies Home Medications: Home Medication List Atorvastatin Calcium [Lipitor] 80 mg PO DAILY 05/17/16 [History Confirmed ] Fluoxetine HCl [Prozac] 60 mg PO DAILY 05/17/16 [History Confirmed 04/17/19] Aspirin EC 81 mg [Ecotrin 81 mg] 81 mg PO DAILY 12/08/18 [History Confirmed 04/17/19] Ergocalciferol (Vitamin D2) [Vitamin D2] 1 tab PO WEEKLY 04/17/19 [History Confirmed 04/17/19] Insulin Lispro [Humalog] 1 unit SQ UD 04/17/19 [History Confirmed 04/17/19] Isosorbide Mononitrate 30 mg [Imdur 30 MG] 30 mg PO DAILY 04/17/19 [ History Confirmed 04/17/19] Lisinopril [Zestril] 10 mg PO DAILY 04/17/19 [History Confirmed 04/17/19] Ondansetron ODT 4 MG [Zofran Odt 4 mg] 4 mg PO Q6HPRN PRN 04/17/19 [ History Confirmed 04/17/19] Oxycodone HCl/Acetaminophen [Oxycodon-Acetaminophen 7.5-325] 1 tablet PO Q4H PRN PRN 04/17/19 [History Confirmed 04/17/19] Pantoprazole Sodium 40 mg PO DAILY 04/17/19 [History Confirmed 04/17/19] Polyethylene Glycol 3350 17 gm [Miralax Powder 17GM PACKET] 17 gm PO DAILY PRN PRN 04/17/19 [History Confirmed 04/17/19] Allergies/Adverse Reactions: Allergies Allergy/AdvReac Type Severity Reaction Status Date / Time metoclopramide Allergy Intermediate dystonic Verified 04/16/19 23:42 symptoms acetaminophen [From Percocet] Allergy Verified 04/17/19 13:26 morphine Allergy Verified 04/16/19 23:42 oxycodone [From Percocet] Allergy Verified 04/17/19 13:26 - Past Medical History Past Medical History: Yes Neurological History: Other ENT History: Cataracts Cardiac History: Arrhythmia, Coronary Artery Disease, Hypertension, Myocardial Infarction (NV) Respiratory History: No Pertinent History Endocrine Medical History: Diabetes Type II Musculoskelatal History: Fractures, Osteoarthritis GI Medical History: GERD History: No Pertinent History Pyscho-Social History: Depression Reproductive Disorders: Other Comment: Pacemaker, Orthostatic hypotension, broken back and neck from fall, Lewy body dementia/ CABG - Female History Hx Last Menstrual Period: post Are you now?: No - Past Surgical History Past Surgical History: Yes Neuro Surgical History: No Pertinent History Cardiac History: CABG, Cardiac Catheterization, Cardiac Stent, Pacemaker Respiratory Surgery: No Pertinent History GI Surgical History: Cholecystectomy Genitourinary Surgical Hx: No Pertinent History Musculskeletal Surgical Hx: No Pertinent History Female Surgical History: Hysterectomy - Social History Smoking Status: Never smoker Exposure to second hand smoke: No Alcohol: None Drug Use: none Significant Family History: heart disease, hypertension - Physical Exam Vital Signs: Vital Signs - 24 hr Temp Pulse Resp BP Pulse Ox 04/17/19 11:53 98.2 F 68 18 199/84 96 04/17/19 08:00 98.2 F 61 18 186/79 92 L 04/17/19 04:05 98.2 F 70 18 163/68 93 L 04/16/19 23:46 98.0 F 87 22 156/77 95 04/16/19 23:00 98.0 F 71 18 149/70 97 04/16/19 21:14 97 04/16/19 19:13 97 04/16/19 18:57 88 18 187/76 97 04/16/19 17:00 78 18 179/83 04/16/19 16:27 98.7 F 89 22 214/93 97 General Appearance: no apparent distress, alert Neurologic Exam: cooperative, disoriented (oriented to place, and knows it is Apr 2019 but thinks it is the 8th or 9th) Eye Exam: eyes nml inspection Ears, Nose, Throat Exam: moist mucous membranes Neck Exam: normal inspection, non-tender, No lymphadenopathy Respiratory Exam: normal breath sounds, lungs clear, No crackles/rales, No rhonchi, No wheezing Cardiovascular Exam: regular rate/rhythm, normal heart sounds, No murmur Gastrointestinal/Abdomen Exam: soft, normal bowel sounds, No tenderness, No distention, No mass, No guarding, No rebound Extremity Exam: other (RUE in sling. fingers are warm. At the site of surgery , distally, there is no ttp, no crepitus, no erythema/exudate/induration. Proximal humerus on R without crepitus or ttp.), No pedal edema, No swelling Wound Assessment: Skin/Wound Assessment Wound/Incision Assessment Start: 04/16/19 23: 23 Text: Status: Active Freq: Q6H Protocol: Document 04/17/19 12:00 CL (Rec: 04/17/19 12:40 CL [id number]) Wound/Incision Assessment Right Shoulder Wound Assessment Shift Assessment Wound Type Incision Wound Stage Non Pressure Wound Drainage Amount None General Appearance Well Approximated Comment Incision to right shoulder from surgery on Thursday. Incision has been closed with glue and has not redness, warmth, or drainage noted. Results - Labs Lab/Micro Results: Lab Results-Last 24 Hours 04/16/19 04/16/19 04/16/19 Range/Units 00:09 17:41 17:41 WBC 7.5 (4.0-10.5) K/mm3 RBC 3.92 L (4.1-5.4) M/mm3 Hgb 11.4 L (12.0-16.0) gm/dl Hct 36.0 (35-47) % MCV 91.8 (78-100) fl MCH 29.0 (26-32) pg MCHC 31.7 L (32-36) g/dl RDW 12.9 (11.5-14.0) % Plt Count 280 (150-450) K/mm3 MPV 9.5 (6-9.5) fl Gran % 63.7 (36.0-66.0) % Eos # (Auto) 0.26 (0-0.5) Absolute Lymphs (auto) 1.69 (1.0-4.6) Absolute Monos (auto) 0.73 (0.0-1.3) Lymphocytes % 22.7 L (24.0-44.0) % Monocytes % 9.8 (0.0-12.0) % Eosinophils % 3.5 (0.00-5.0) % Basophils % 0.3 (0.0-0.4) % Absolute Granulocytes 4.76 (1.4-6.9) Basophils # 0.02 (0-0.4) Sodium 138 (137-145) mmol/L Potassium 3.8 (3.5-5.1) mmol/L Chloride 102 (98-107) mmol/L Carbon Dioxide 27 (22-30) mmol/L Anion Gap 12.3 (5-15) MEQ/L BUN 14 (7-17) mg/dL Creatinine 0.60 (0.52-1.04) mg/dL Estimated GFR > 60.0 ML/MIN Glucose 158 H (74-106) mg/dL Hemoglobin A1c (4.5-6.0) % Calcium 9.5 (8.4-10.2) mg/dL Total Bilirubin 0.90 (0.2-1.3) mg/dL AST 30 (14-36) U/L ALT 23 (0-35) U/L Alkaline Phosphatase 115 (38-126) U/L Troponin I (0.000-0.034) ng/mL Serum Total Protein 7.3 (6.3-8.2) g/dL Albumin 3.8 (3.5-5.0) g/dL Prealbumin 10.57 L (17.6-36.0) mg/dL Urine Color (YELLOW) Urine Appearance (CLEAR) Urine pH (5-6) Ur Specific Warthen (1.005-1.025) Urine Protein (Negative) Urine Ketones (NEGATIVE) Urine Blood (0-5) Wei/ul Urine Nitrite (NEGATIVE) Urine Bilirubin (NEGATIVE) Urine Urobilinogen (0-1) mg/dL Ur Leukocyte Esterase (NEGATIVE) Urine WBC (Auto) (0-5) /HPF Urine RBC (Auto) (0-2) /HPF U Epithel Cells (Auto) (FEW) /HPF Urine Bacteria (Auto) (NEGATIVE) /HPF Urine Mucus (Auto) (NEGATIVE) /HPF Urine Culture Reflexed (NO) Urine Glucose (NEGATIVE) mg/dL Urine Opiates Level (NEGATIVE) Ur Methadone (NEGATIVE) Urine Barbiturates (NEGATIVE) Ur Phencyclidine (PCP) (NEGATIVE) Urine Amphetamine (NEGATIVE) U Benzodiazepine Level (NEGATIVE) Urine Cocaine (NEGATIVE) Urine Marijuana (THC) (NEGATIVE) 04/16/19 04/16/19 04/16/19 Range/Units 17:41 21:04 22:29 WBC (4.0-10.5) K/mm3 RBC (4.1-5.4) M/mm3 Hgb (12.0-16.0) gm/dl Hct (35-47) % MCV (78-100) fl MCH (26-32) pg MCHC (32-36) g/dl RDW (11.5-14.0) % Plt Count (150-450) K/mm3 MPV (6-9.5) fl Gran % (36.0-66.0) % Eos # (Auto) (0-0.5) Absolute Lymphs (auto) (1.0-4.6) Absolute Monos (auto) (0.0-1.3) Lymphocytes % (24.0-44.0) % Monocytes % (0.0-12.0) % Eosinophils % (0.00-5.0) % Basophils % (0.0-0.4) % Absolute Granulocytes (1.4-6.9) Basophils # (0-0.4) Sodium (137-145) mmol/L Potassium (3.5-5.1) mmol/L Chloride (98-107) mmol/L Carbon Dioxide (22-30) mmol/L Anion Gap (5-15) MEQ/L BUN (7-17) mg/dL Creatinine (0.52-1.04) mg/dL Estimated GFR ML/MIN Glucose (74-106) mg/dL Hemoglobin A1c (4.5-6.0) % Calcium (8.4-10.2) mg/dL Total Bilirubin (0.2-1.3) mg/dL AST (14-36) U/L ALT (0-35) U/L Alkaline Phosphatase (38-126) U/L Troponin I < 0.012 < 0.012 (0.000-0.034) ng/mL Serum Total Protein (6.3-8.2) g/dL Albumin (3.5-5.0) g/dL Prealbumin (17.6-36.0) mg/dL Urine Color YELLOW (YELLOW) Urine Appearance SLIGHTLY CLOUDY (CLEAR) Urine pH 6.0 (5-6) Ur Specific [place] 1.012 (1.005-1.025) Urine Protein NEGATIVE (Negative) Urine Ketones SMALL (NEGATIVE) Urine Blood SMALL (0-5) Wei/ul Urine Nitrite NEGATIVE (NEGATIVE) Urine Bilirubin NEGATIVE (NEGATIVE) Urine Urobilinogen 4 (0-1) mg/dL Ur Leukocyte Esterase NEGATIVE (NEGATIVE) Urine WBC (Auto) 0-2 (0-5) /HPF Urine RBC (Auto) 3-5 (0-2) /HPF U Epithel Cells (Auto) FEW (FEW) /HPF Urine Bacteria (Auto) NONE (NEGATIVE) /HPF Urine Mucus (Auto) SLIGHT (NEGATIVE) /HPF Urine Culture Reflexed ORDERED SEPARATELY (NO) Urine Glucose NEGATIVE (NEGATIVE) mg/dL Urine Opiates Level (NEGATIVE) Ur Methadone (NEGATIVE) Urine Barbiturates (NEGATIVE) Ur Phencyclidine (PCP) (NEGATIVE) Urine Amphetamine (NEGATIVE) U Benzodiazepine Level (NEGATIVE) Urine Cocaine (NEGATIVE) Urine Marijuana (THC) (NEGATIVE) 04/16/19 04/16/19 04/17/19 Range/Units 22:29 23:32 05:43 WBC (4.0-10.5) K/mm3 RBC (4.1-5.4) M/mm3 Hgb (12.0-16.0) gm/dl Hct (35-47) % MCV (78-100) fl MCH (26-32) pg MCHC (32-36) g/dl RDW (11.5-14.0) % Plt Count (150-450) K/mm3 MPV (6-9.5) fl Gran % (36.0-66.0) % Eos # (Auto) (0-0.5) Absolute Lymphs (auto) (1.0-4.6) Absolute Monos (auto) (0.0-1.3) Lymphocytes % (24.0-44.0) % Monocytes % (0.0-12.0) % Eosinophils % (0.00-5.0) % Basophils % (0.0-0.4) % Absolute Granulocytes (1.4-6.9) Basophils # (0-0.4) Sodium (137-145) mmol/L Potassium (3.5-5.1) mmol/L Chloride (98-107) mmol/L Carbon Dioxide (22-30) mmol/L Anion Gap (5-15) MEQ/L BUN (7-17) mg/dL Creatinine (0.52-1.04) mg/dL Estimated GFR ML/MIN Glucose (74-106) mg/dL Hemoglobin A1c (4.5-6.0) % Calcium (8.4-10.2) mg/dL Total Bilirubin (0.2-1.3) mg/dL AST (14-36) U/L ALT (0-35) U/L Alkaline Phosphatase (38-126) U/L Troponin I < 0.012 < 0.012 (0.000-0.034) ng/mL Serum Total Protein (6.3-8.2) g/dL Albumin (3.5-5.0) g/dL Prealbumin (17.6-36.0) mg/dL Urine Color (YELLOW) Urine Appearance (CLEAR) Urine pH (5-6) Ur Specific [place] (1.005-1.025) Urine Protein (Negative) Urine Ketones (NEGATIVE) Urine Blood (0-5) Wei/ul Urine Nitrite (NEGATIVE) Urine Bilirubin (NEGATIVE) Urine Urobilinogen (0-1) mg/dL Ur Leukocyte Esterase (NEGATIVE) Urine WBC (Auto) (0-5) /HPF Urine RBC (Auto) (0-2) /HPF U Epithel Cells (Auto) (FEW) /HPF Urine Bacteria (Auto) (NEGATIVE) /HPF Urine Mucus (Auto) (NEGATIVE) /HPF Urine Culture Reflexed (NO) Urine Glucose (NEGATIVE) mg/dL Urine Opiates Level POSITIVE (NEGATIVE) Ur Methadone NEGATIVE (NEGATIVE) Urine Barbiturates NEGATIVE (NEGATIVE) Ur Phencyclidine (PCP) NEGATIVE (NEGATIVE) Urine Amphetamine NEGATIVE (NEGATIVE) U Benzodiazepine Level NEGATIVE (NEGATIVE) Urine Cocaine NEGATIVE (NEGATIVE) Urine Marijuana (THC) NEGATIVE (NEGATIVE) 04/17/19 04/17/19 04/17/19 Range/Units 05:43 05:43 05:43 WBC 6.1 (4.0-10.5) K/mm3 RBC 3.45 L (4.1-5.4) M/mm3 Hgb 10.1 L (12.0-16.0) gm/dl Hct 32.0 L (35-47) % MCV 92.8 (78-100) fl MCH 29.2 (26-32) pg MCHC 31.6 L (32-36) g/dl RDW 13.0 (11.5-14.0) % Plt Count 249 (150-450) K/mm3 MPV 9.7 H (6-9.5) fl Gran % 53.2 (36.0-66.0) % Eos # (Auto) 0.32 (0-0.5) Absolute Lymphs (auto) 1.87 (1.0-4.6) Absolute Monos (auto) 0.64 (0.0-1.3) Lymphocytes % 30.6 (24.0-44.0) % Monocytes % 10.5 (0.0-12.0) % Eosinophils % 5.2 H (0.00-5.0) % Basophils % 0.5 (0.0-0.4) % Absolute Granulocytes 3.25 (1.4-6.9) Basophils # 0.03 (0-0.4) Sodium 139 (137-145) mmol/L Potassium 3.2 L (3.5-5.1) mmol/L Chloride 107 (98-107) mmol/L Carbon Dioxide 26 (22-30) mmol/L Anion Gap 10.0 (5-15) MEQ/L BUN 11 (7-17) mg/dL Creatinine 0.48 L (0.52-1.04) mg/dL Estimated GFR > 60.0 ML/MIN Glucose 155 H (74-106) mg/dL Hemoglobin A1c 7.72 H (4.5-6.0) % Calcium 8.7 (8.4-10.2) mg/dL Total Bilirubin 0.60 (0.2-1.3) mg/dL AST 24 (14-36) U/L ALT 19 (0-35) U/L Alkaline Phosphatase 99 (38-126) U/L Troponin I (0.000-0.034) ng/mL Serum Total Protein 6.4 (6.3-8.2) g/dL Albumin 3.2 L (3.5-5.0) g/dL Prealbumin (17.6-36.0) mg/dL Urine Color (YELLOW) Urine Appearance (CLEAR) Urine pH (5-6) Ur Specific [place] (1.005-1.025) Urine Protein (Negative) Urine Ketones (NEGATIVE) Urine Blood (0-5) Wei/ul Urine Nitrite (NEGATIVE) Urine Bilirubin (NEGATIVE) Urine Urobilinogen (0-1) mg/dL Ur Leukocyte Esterase (NEGATIVE) Urine WBC (Auto) (0-5) /HPF Urine RBC (Auto) (0-2) /HPF U Epithel Cells (Auto) (FEW) /HPF Urine Bacteria (Auto) (NEGATIVE) /HPF Urine Mucus (Auto) (NEGATIVE) /HPF Urine Culture Reflexed (NO) Urine Glucose (NEGATIVE) mg/dL Urine Opiates Level (NEGATIVE) Ur Methadone (NEGATIVE) Urine Barbiturates (NEGATIVE) Ur Phencyclidine (PCP) (NEGATIVE) Urine Amphetamine (NEGATIVE) U Benzodiazepine Level (NEGATIVE) Urine Cocaine (NEGATIVE) Urine Marijuana (THC) (NEGATIVE) - Radiology Impressions Radiology Exams & Impressions: Radiology Procedures Category Date Time Status CERVICAL SPINE WO CONTRAST [CT] Stat Exams 04/16/19 17:29 Completed CHEST 1 VIEW (PORTABLE) Stat Exams 04/16/19 17:27 Completed CLAVICLE Stat Exams 04/16/19 17:30 Completed HEAD WITHOUT CONTRAST [CT] Stat Exams 04/16/19 17:29 Completed SHOULDER Stat Exams 04/16/19 17:30 Completed Assessment/Plan (1) Altered mental status Current Visit: Yes Status: Acute Qualifiers: Altered mental status type: unspecified Qualified Code(s): R41.82 - Altered mental status, unspecified Assessment & Plan: Will keep for observation, apparently had an episode today as well. May be just due to pain medicine reaction, or may be related to the Lewy Body dementia (but seems to be worse recently per her son). Code(s): R41.82 - ALTERED MENTAL STATUS, UNSPECIFIED (2) Multiple falls Current Visit: Yes Status: Acute Assessment & Plan: PT consult. They would be interested in swing bed stay if she would qualify. Code(s): R29.6 - REPEATED FALLS (3) Pain of right clavicle Current Visit: Yes Status: Acute Assessment & Plan: WIll treat pain with norco prn Code(s): M89.8X1 - OTHER SPECIFIED DISORDERS OF BONE, SHOULDER
[2019-04-17] MEDS: ENOXAPARIN SODIUM SQ SCH (14:55)
[2019-04-17] MEDS: ROCEPHIN 1 Gm-D5w 50 ml Bag** 1 G/50 ML IVPB IV SCH (22:36)
[2019-04-18] MEDS: Sodium Chloride 0.9% 1000 ML 1,000 ML IV SCH ×4 (01:57→22:46)
[2019-04-18] MEDS: Norco 10/325 MG Tablet PO PRN ×3 (01:58→14:19)
[2019-04-18] MEDS: APRESOLINE 20 MG/ML INJ IV PRN (05:00)
[2019-04-18 05:40] LABS: Hematocrit 30.1 % (35-47); Hemoglobin 9.6 gm/dl (12.0-16.0); Mean Corpuscular Hgb Concent. 31.9 g/dl (32-36); Mean Platelet Volume 9.8 fl (6-9.5); Platelet Count 246 K/mm3 (150-450); Red Blood Count 3.27 M/mm3 (4.1-5.4)
[2019-04-18 05:52] LABS: Mean Corpuscular Hemoglobin 29.3 pg (26-32)
[2019-04-18 06:05] LABS: ANION GAP 9.9 MEQ/L (5-15); BLOOD UREA NITROGEN 7 mg/dL (7-17); CHLORIDE 109 mmol/L (98-107); Calcium 8.7 mg/dL (8.4-10.2); Carbon Dioxide 25 mmol/L (22-30); Creatinine 1 0.46 mg/dL (0.52-1.04); Glucose 181 mg/dL (74-106); Potassium 3.3 mmol/L (3.5-5.1); SODIUM 141 mmol/L (137-145)
[2019-04-18] MEDS: ENOXAPARIN SODIUM SQ SCH (08:29)
[2019-04-18] MEDS: Prozac 20 MG PO SCH (08:29)
[2019-04-18] MEDS: Zestril 10 MG PO SCH (08:29)
[2019-04-18] MEDS: ECOTRIN 81 MG PO SCH (08:29)
[2019-04-18] MEDS: Protonix 40MG Tablet PO SCH (08:29)
--- NOTE | 2019-04-18 08:56 | PCM.NOTE ---
Date and Time: 04/18/19 0850 Subjective Assessment: No pain at the clavicle this morning. She has had BP in the 150s-190s over the past 24hours. Her son notes that yesterday afternoon she was very disoriented. He does not remember if her imdur was stopped due to a reaction or due to hypotension. - Review of Systems Constitutional: No Fever Neurological: Other (disorientation) Objective Exam General Appearance: no apparent distress, alert Neurologic Exam: cooperative, disoriented (knows it is April - says year is 1989 initially) Skin Exam: normal color, warm, dry, No rash Wound Assessment: Skin/Wound Assessment Wound/Incision Assessment Start: 04/16/19 23: 23 Text: Status: Active Freq: Q6H Protocol: Document 04/18/19 08:00 JENNIFER (Rec: 04/18/19 08:01 JENNIFER [id number]) Wound/Incision Assessment Right Shoulder Wound Assessment Shift Assessment Wound Type Incision Wound Stage Non Pressure Wound Drainage Amount None General Appearance Well Approximated Comment dressing in place Wound Photo Photo Taken No Eye Exam: eyes nml inspection Respiratory Exam: normal breath sounds, lungs clear, No crackles/rales, No rhonchi, No wheezing Cardiovascular Exam: regular rate/rhythm, normal heart sounds, No murmur Extremity Exam: other (R arm in a sling) OBJECTIVE DATA Vital Signs: Vital Signs - 24 hr Temp Pulse Resp BP Pulse Ox 04/18/19 05:53 172/78 04/18/19 04:10 98.2 F 63 18 188/77 95 04/18/19 00:00 97.8 F 65 18 181/81 95 04/17/19 21:00 97 04/17/19 20:00 97.9 F 67 20 178/76 97 04/17/19 16:00 98.5 F 85 20 193/79 95 04/17/19 11:53 98.2 F 68 18 199/84 96 Pain Assessment - Last Documented Pain Intensity 8 Pain Scale Used 0-10 Pain Scale Intake and Output: Intake & Output 04/15/19 04/16/19 04/17/19 04/18/19 11:59 11:59 11:59 11:59 Intake Total 1991 3938 Output Total 1999 900 Balance -8 3038 Weight 75.8 kg 75.5 kg Lab Results: Lab Results-Last 24 Hours 04/17/19 04/18/19 04/18/19 Range/Units 14:07 05:10 05:10 WBC 5.0 (4.0-10.5) K/mm3 RBC 3.27 L (4.1-5.4) M/mm3 Hgb 9.6 L (12.0-16.0) gm/dl Hct 30.1 L (35-47) % MCV 92.0 (78-100) fl MCH 29.3 (26-32) pg MCHC 31.9 L (32-36) g/dl RDW 13.0 (11.5-14.0) % Plt Count 246 (150-450) K/mm3 MPV 9.8 H (6-9.5) fl Sodium 141 (137-145) mmol/L Potassium 3.3 L (3.5-5.1) mmol/L Chloride 109 H (98-107) mmol/L Carbon Dioxide 25 (22-30) mmol/L Anion Gap 9.9 (5-15) MEQ/L BUN 7 (7-17) mg/dL Creatinine 0.46 L (0.52-1.04) mg/dL Estimated GFR > 60.0 ML/MIN Glucose 181 H (74-106) mg/dL Calcium 8.7 (8.4-10.2) mg/dL Ammonia < 9 L (9-30) umol/L Radiology Exams: Radiology Procedures Category Date Time Status CERVICAL SPINE WO CONTRAST [CT] Stat Exams 04/16/19 17:29 Completed CHEST 1 VIEW (PORTABLE) Stat Exams 04/16/19 17:27 Completed CLAVICLE Stat Exams 04/16/19 17:30 Completed HEAD WITHOUT CONTRAST [CT] Stat Exams 04/16/19 17:29 Completed SHOULDER Stat Exams 04/16/19 17:30 Completed Assessment/Plan (1) Altered mental status Current Visit: Yes Status: Acute Qualifiers: Altered mental status type: unspecified Qualified Code(s): R41.82 - Altered mental status, unspecified Assessment & Plan: Could be due to percocet overdose, with an overlay of disorientation from being in a new environment. Would like PT to work with her today. Son is interested in rehab stay - will discuss with discharge planning today. Code(s): R41.82 - ALTERED MENTAL STATUS, UNSPECIFIED (2) Multiple falls Current Visit: Yes Status: Acute Code(s): R29.6 - REPEATED FALLS (3) Pain of right clavicle Current Visit: Yes Status: Acute Code(s): M89.8X1 - OTHER SPECIFIED DISORDERS OF BONE, SHOULDER (4) Lewy body dementia Current Visit: Yes Status: Chronic Qualifiers: Dementia behavioral disturbance: without behavioral disturbance Qualified Code(s): G31.83 - Dementia with Lewy bodies; F02.80 - Dementia in other diseases classified elsewhere without behavioral disturbance Code(s): G31.83 - DEMENTIA WITH LEWY BODIES; F02.80 - DEMENTIA IN OTH DISEASES CLASSD ELSWHR W/O BEHAVRL DISTURB (5) Diabetes Current Visit: No Status: Chronic Qualifiers: Diabetes mellitus type: type 2 Diabetes mellitus complication status: with circulatory complication Code(s): E11.9 - TYPE 2 DIABETES MELLITUS WITHOUT COMPLICATIONS
[2019-04-18] MEDS ORDERED: NON-FORMULARY ITEM (Atorvastatin Calcium [Lipitor] 80 MG) PO SCH (10:00)
[2019-04-18] MEDS ORDERED: ZOCOR 20MG PO SCH (10:00)
[2019-04-18] MEDS: ZOFRAN ODT 4 MG PO PRN (14:24)
[2019-04-18] MEDS: MOTRIN 400 MG PO PRN (18:36)
[2019-04-18] MEDS: ROCEPHIN 1 Gm-D5w 50 ml Bag** 1 G/50 ML IVPB IV SCH (21:18)
[2019-04-19] MEDS: APRESOLINE 20 MG/ML INJ IV PRN ×2 (00:50→12:00)
--- NOTE | 2019-04-19 08:32 | PCM.NOTE ---
Date and Time: 04/19/19827 Objective Exam Wound Assessment: Skin/Wound Assessment Wound/Incision Assessment Start: 04/16/19 23: 23 Text: Status: Active Freq: Q6H Protocol: Document 04/19/19 08:00 JENNIFER (Rec: 04/19/19 08:19 JENNIFER [id number]) Wound/Incision Assessment Right Shoulder Wound Assessment Shift Assessment Wound Type Incision Wound Stage Non Pressure Wound Drainage Amount None Drainage Odor None/Absent General Appearance Well Approximated Open to air Clean/Dry Comment / Wound Photo Photo Taken No OBJECTIVE DATA Vital Signs: Vital Signs - 24 hr Temp Pulse Resp BP Pulse Ox 04/19/19 07:52 98.1 F 76 18 196/79 95 04/19/19 04:27 98 F 90 18 183/75 98 04/19/19 04:10 170/88 04/19/19 01:00 165/82 04/19/19 00:44 98.9 F 91 H 16 190/99 98 04/18/19 21:00 95 04/18/19 20:39 98.8 F 68 16 154/69 95 04/18/19 16:15 98.1 F 73 18 153/66 94 L 04/18/19 13:00 98.3 F 69 18 164/74 96 04/18/19 09:00 98.2 F 63 18 172/78 95 Pain Assessment - Last Documented Pain Intensity 0 Pain Scale Used 0-10 Pain Scale,FLACC Intake and Output: Intake & Output 04/16/19 04/17/19 04/18/19 04/19/19 11:59 11:59 11:59 11:59 Intake Total 1991 4118 2883 Output Total 1999 133 1575 Balance -8 3218 1308 Weight 75.8 kg 75.5 kg 77.7 kg Multi-Disciplinary Progress Notes: Multi-Disciplinary Progress Notes 04/18/19 13:47 Case Management Note by Jordyn Zurita REFERRAL FAXED TO [facility] AT THIS TIME, SPOKE WITH SHAWN. Initialized on 04/18/19 13:47 - END OF NOTE 04/18/19 12:20 (created 04/18/19 13:40) Case Management Note by Jordyn Zurita DISCHARGE PLAN REVIEWED WITH PT AND SON AT BEDSIDE. PT REPORTS THAT SHE FEELS THAT SHE COULD BENEFIT FROM A REHAB STAY AT AN [facility] ON DISCHARGE. REPORTS THAT SHE IS HAVING LOTS OF FALLS AT HOME. R ARM IN SLING, AND IS HAVING DIFFICULTY PROVIDING SELF CARE SAFELY IN THE HOME. 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 SON IS IN AGREEMENT WITH THIS PLAN. DISCUSSED THAT WITH PT'S INSURANCE, THE FACILITY WOULD LIKELY NEED TO OBTAIN PRECERTIFICATION PRIOR TO BEING ABLE TO ACCEPT PT FOR REHAB STAY. PT/SON VERBALIZED UNDERSTANDING. Initialized on 04/18/19 13:40 - END OF NOTE 04/18/19 09:29 Case Management Note by Blanche Balnco Talked with CAROLINA BAUTISTA about chronic care coordination program. flyer given. Initialized on 04/18/19 09:29 - END OF NOTE Assessment/Plan (1) Altered mental status Current Visit: Yes Status: Acute Qualifiers: Altered mental status type: unspecified Qualified Code(s): R41.82 - Altered mental status, unspecified Assessment & Plan: COntinues to wax and wane - likely multifactorial. Could just be related to Lewy body dementia, exacerbated after clavicle surgery. Also percocet reaction. Also question of UTI - although UCx now negative. Code(s): R41.82 - ALTERED MENTAL STATUS, UNSPECIFIED (2) Hypertension Current Visit: No Status: Acute Qualifiers: Hypertension type: essential hypertension Qualified Code(s): I10 - Essential (primary) hypertension Assessment & Plan: add amlodipine 5mg/d Code(s): I10 - ESSENTIAL (PRIMARY) HYPERTENSION (3) Multiple falls Current Visit: Yes Status: Acute Assessment & Plan: would like pt to go to rehab. Code(s): R29.6 - REPEATED FALLS (4) Pain of right clavicle Current Visit: Yes Status: Acute Assessment & Plan: last pain pill yesterday & refused her pain pill this morning Code(s): M89.8X1 - OTHER SPECIFIED DISORDERS OF BONE, SHOULDER (5) Lewy body dementia Current Visit: Yes Status: Chronic Qualifiers: Dementia behavioral disturbance: without behavioral disturbance Qualified Code(s): G31.83 - Dementia with Lewy bodies; F02.80 - Dementia in other diseases classified elsewhere without behavioral disturbance Code(s): G31.83 - DEMENTIA WITH LEWY BODIES; F02.80 - DEMENTIA IN OTH DISEASES CLASSD ELSWHR W/O BEHAVRL DISTURB (6) Diabetes Current Visit: No Status: Chronic Qualifiers: Diabetes mellitus type: type 2 Diabetes mellitus complication status: with circulatory complication Code(s): E11.9 - TYPE 2 DIABETES MELLITUS WITHOUT COMPLICATIONS (7) UTI (urinary tract infection) Current Visit: No Status: Acute Qualifiers: Urinary tract infection type: acute pyelonephritis Qualified Code(s): N10 - Acute pyelonephritis Assessment & Plan: suspected - but culture neg. will stop rocephin. Code(s): N39.0 - URINARY TRACT INFECTION, SITE NOT SPECIFIED
[2019-04-19] MEDS: Sodium Chloride 0.9% 1000 ML 1,000 ML IV SCH ×2 (09:26→18:52)
[2019-04-19] MEDS ORDERED: NORVASC 5 MG ONE (09:33)
[2019-04-19] MEDS: Zestril 10 MG PO SCH (09:34)
[2019-04-19] MEDS: Prozac 20 MG PO SCH (09:34)
[2019-04-19] MEDS ORDERED: NORVASC 5 MG PO SCH (10:00)
[2019-04-19] MEDS ORDERED: MOTRIN 400 MG ONE (11:03)
[2019-04-19] MEDS: Norco 10/325 MG Tablet PO PRN ×2 (11:03→20:27)
[2019-04-19] MEDS: MOTRIN 400 MG PO PRN ×2 (11:03→16:11)
[2019-04-19] MEDS: ECOTRIN 81 MG PO SCH (11:04)
[2019-04-19] MEDS: Protonix 40MG Tablet PO SCH (11:04)
[2019-04-19] MEDS: ENOXAPARIN SODIUM SQ SCH (11:04)
[2019-04-19] MEDS ORDERED: NovoLOG Insulin SQ PRN (22:00)
[2019-04-20] MEDS: Sodium Chloride 0.9% 1000 ML 1,000 ML IV SCH ×3 (02:36→22:27)
[2019-04-20] MEDS: MOTRIN 400 MG PO PRN (07:58)
[2019-04-20] MEDS: APRESOLINE 20 MG/ML INJ IV PRN ×2 (07:59→23:13)
--- NOTE | 2019-04-20 08:40 | PCM.NOTE ---
Date and Time: 04/20/19836 Subjective Assessment: Pt thinks she did not hallucinate last night for the first time - RN did not get any report of hallucinations last night. Rani po. Her shoulder (R) is having 5/10 pain this morning, for which she has received motrin. - Review of Systems Constitutional: No Fever Abdominal/Gastrointestinal: No Vomiting Objective Exam General Appearance: no apparent distress, alert Neurologic Exam: cooperative, disoriented (oriented to place, knows it's April , does not know year) Skin Exam: normal color, warm, dry, No rash Wound Assessment: Skin/Wound Assessment Wound/Incision Assessment Start: 04/16/19 23: 23 Text: Status: Active Freq: Q6H Protocol: Document 04/20/19 08:00 KASHIFNE (Rec: 04/20/19 08:21 RDNE [id number]) Wound/Incision Assessment Right Shoulder Wound Assessment Shift Assessment Wound Type Incision Wound Stage Non Pressure Wound Drainage Amount None Drainage Odor None/Absent General Appearance Well Approximated Open to air Clean/Dry Comment / Wound Photo Photo Taken No Ears, Nose, Throat Exam: moist mucous membranes Neck Exam: normal inspection Respiratory Exam: normal breath sounds, lungs clear, No crackles/rales, No rhonchi, No wheezing Cardiovascular Exam: regular rate/rhythm, normal heart sounds, No murmur Extremity Exam: normal inspection, No pedal edema, No swelling Back Exam: normal inspection, No rash OBJECTIVE DATA Vital Signs: Vital Signs - 24 hr Temp Pulse Resp BP Pulse Ox 04/20/19 08:07 98.1 F 65 18 188/81 96 04/20/19 04:00 172/58 04/20/19 03:42 97.5 F 66 19 181/72 94 L 04/20/19 00:00 98.1 F 68 18 175/76 95 04/19/19 21:00 95 04/19/19 19:59 98.0 F 76 19 160/68 95 04/19/19 16:00 98.3 F 71 18 161/71 98 04/19/19 12:00 81 18 186/87 96 Pain Assessment - Last Documented Pain Intensity 4 Pain Scale Used 0-10 Pain Scale Intake and Output: Intake & Output 04/17/19 04/18/19 04/19/19 04/20/19 11:59 11:59 11:59 11:59 Intake Total 1991 4113 7653 2940 Output Total 1999 900 6855 1000 Balance -8 3638 8108 6130 Weight 75.8 kg 75.5 kg 77.7 kg 77.7 kg Lab Results: Accuchecks Date 04/19/19 Date 04/19/19 Date 04/19/19 Time 21:57 Time 16:30 Time 11:26 Accucheck Value: 138 Accucheck Value: 184 Accucheck Value: 146 Accucheck Value: 204 Assessment/Plan (1) Altered mental status Current Visit: Yes Status: Acute Qualifiers: Altered mental status type: unspecified Qualified Code(s): R41.82 - Altered mental status, unspecified Assessment & Plan: waxes and wanes but seems to be improving. Code(s): R41.82 - ALTERED MENTAL STATUS, UNSPECIFIED (2) Hypertension Current Visit: No Status: Acute Qualifiers: Hypertension type: essential hypertension Qualified Code(s): I10 - Essential (primary) hypertension Assessment & Plan: increased norvasc from 5mg to 10mg daily. She had to receive hydralazine for elev BP over 180 systolic this morning. Code(s): I10 - ESSENTIAL (PRIMARY) HYPERTENSION (3) Multiple falls Current Visit: Yes Status: Acute Assessment & Plan: Pt would like to d/c to [facility] for rehab. Await insurance approval. Cannot care for herself in the home after clavicular fx and with sling in place. Code(s): R29.6 - REPEATED FALLS (4) Pain of right clavicle Current Visit: Yes Status: Acute Code(s): M89.8X1 - OTHER SPECIFIED DISORDERS OF BONE, SHOULDER (5) Lewy body dementia Current Visit: Yes Status: Chronic Qualifiers: Dementia behavioral disturbance: without behavioral disturbance Qualified Code(s): G31.83 - Dementia with Lewy bodies; F02.80 - Dementia in other diseases classified elsewhere without behavioral disturbance Code(s): G31.83 - DEMENTIA WITH LEWY BODIES; F02.80 - DEMENTIA IN OTH DISEASES CLASSD ELSWHR W/O BEHAVRL DISTURB (6) Diabetes Current Visit: No Status: Chronic Qualifiers: Diabetes mellitus type: type 2 Diabetes mellitus complication status: with circulatory complication Code(s): E11.9 - TYPE 2 DIABETES MELLITUS WITHOUT COMPLICATIONS (7) Anemia Current Visit: Yes Status: Acute Qualifiers: Anemia type: unspecified type Qualified Code(s): D64.9 - Anemia, unspecified Code(s): D64.9 - ANEMIA, UNSPECIFIED
[2019-04-20] MEDS: ENOXAPARIN SODIUM SQ SCH (10:33)
[2019-04-20] MEDS: Protonix 40MG Tablet PO SCH ×2 (10:34→10:39)
[2019-04-20] MEDS: ECOTRIN 81 MG PO SCH (10:34)
[2019-04-20] MEDS: Prozac 20 MG PO SCH (10:39)
[2019-04-20] MEDS: Zestril 10 MG PO SCH (10:40)
[2019-04-20] MEDS: NORVASC 5 MG PO SCH (10:40)
[2019-04-20] MEDS: Norco 10/325 MG Tablet PO PRN ×2 (12:27→22:24)
[2019-04-20] MEDS: ZOFRAN ODT 4 MG PO PRN (23:13)
[2019-04-21 05:43] LABS: Hematocrit 30.7 % (35-47); Hemoglobin 9.7 gm/dl (12.0-16.0); Mean Cell Volume 92.7 fl (78-100); Mean Corpuscular Hemoglobin 29.3 pg (26-32); Mean Corpuscular Hgb Concent. 31.6 g/dl (32-36); Mean Platelet Volume 9.7 fl (6-9.5); Platelet Count 255 K/mm3 (150-450); Red Blood Count 3.31 M/mm3 (4.1-5.4); Red Cell Distribution Width 13.3 % (11.5-14.0)
[2019-04-21 05:53] LABS: ANION GAP 8.9 MEQ/L (5-15); BLOOD UREA NITROGEN 4 mg/dL (7-17); CHLORIDE 110 mmol/L (98-107); Calcium 8.9 mg/dL (8.4-10.2); Carbon Dioxide 26 mmol/L (22-30); Creatinine 1 0.46 mg/dL (0.52-1.04); Glucose 137 mg/dL (74-106); Potassium 3.2 mmol/L (3.5-5.1); SODIUM 142 mmol/L (137-145)
[2019-04-21] MEDS: MOTRIN 400 MG PO PRN (06:37)
[2019-04-21] MEDS: NORVASC 5 MG PO SCH (09:06)
[2019-04-21] MEDS: Prozac 20 MG PO SCH (09:06)
[2019-04-21] MEDS: Protonix 40MG Tablet PO SCH (09:07)
[2019-04-21] MEDS: ECOTRIN 81 MG PO SCH (09:07)
[2019-04-21] MEDS: ENOXAPARIN SODIUM SQ SCH (09:07)
[2019-04-21] MEDS: Zestril 10 MG PO SCH (09:07)
--- NOTE | 2019-04-21 09:17 | PCM.NOTE ---
Date and Time: 04/21/19913 Subjective Assessment: She has no complaints this morning. Is oriented to place and nearly to time ( year is 1920 - but she quickly corrects herself). Is worried [facility] is too far for her son. Has a little SOTO develop through the day the past few days. - Review of Systems Constitutional: No Fever Neurological: Headache Objective Exam General Appearance: no apparent distress, alert Neurologic Exam: cooperative, normal mood/affect Skin Exam: normal color, warm, dry, No rash Wound Assessment: Skin/Wound Assessment Wound/Incision Assessment Start: 04/16/19 23: 23 Text: Status: Active Freq: Q6H Protocol: Document 04/21/19 07:56 JENNIFER (Rec: 04/21/19 07:58 JENNIFER [id number]) Wound/Incision Assessment Right Shoulder Wound Assessment Shift Assessment Wound Type Incision Wound Stage Non Pressure Wound Drainage Amount None Drainage Odor None/Absent General Appearance Well Approximated Open to air Clean/Dry Comment / Wound Photo Photo Taken No Respiratory Exam: normal breath sounds, lungs clear, No crackles/rales, No rhonchi, No wheezing Cardiovascular Exam: regular rate/rhythm, normal heart sounds, No murmur Extremity Exam: normal inspection, No pedal edema, No swelling Back Exam: normal inspection, No rash OBJECTIVE DATA Vital Signs: Vital Signs - 24 hr Temp Pulse Resp BP Pulse Ox 04/21/19 06:41 97.7 F 80 18 136/67 97 04/21/19 06:29 92 L 04/21/19 04:00 97.6 F 70 18 148/65 94 L 04/20/19 23:59 97.9 F 67 20 196/78 95 04/20/19 20:42 95 04/20/19 19:35 97.8 F 67 19 142/64 97 04/20/19 16:00 97.5 F 77 18 149/66 04/20/19 13:00 73 18 154/66 Pain Assessment - Last Documented Pain Intensity 6 Pain Scale Used 0-10 Pain Scale Intake and Output: Intake & Output 04/18/19 04/19/19 04/20/19 04/21/19 11:59 11:59 11:59 11:59 Intake Total 4118 2883 2940 2970 Output Total 900 1575 1000 2650 Balance 3218 1308 1940 320 Weight 75.5 kg 77.7 kg 76.6 kg 76.1 kg Lab Results: Accuchecks Date 04/21/19 Date 04/20/19 Date 04/20/19 Date 04/20/19 Time 07:15 Time 22:00 Time 17:51 Time 11:30 Accucheck Value: 178 Accucheck Value: 119 Accucheck Value: 152 Lab Results-Last 24 Hours 04/21/19 04/21/19 Range/Units 05:14 05:14 WBC 5.0 (4.0-10.5) K/mm3 RBC 3.31 L (4.1-5.4) M/mm3 Hgb 9.7 L (12.0-16.0) gm/dl Hct 30.7 L (35-47) % MCV 92.7 (78-100) fl MCH 29.3 (26-32) pg MCHC 31.6 L (32-36) g/dl RDW 13.3 (11.5-14.0) % Plt Count 255 (150-450) K/mm3 MPV 9.7 H (6-9.5) fl Sodium 142 (137-145) mmol/L Potassium 3.2 L (3.5-5.1) mmol/L Chloride 110 H (98-107) mmol/L Carbon Dioxide 26 (22-30) mmol/L Anion Gap 8.9 (5-15) MEQ/L BUN 4 L (7-17) mg/dL Creatinine 0.46 L (0.52-1.04) mg/dL Estimated GFR > 60.0 ML/MIN Glucose 137 H (74-106) mg/dL Calcium 8.9 (8.4-10.2) mg/dL Multi-Disciplinary Progress Notes: Multi-Disciplinary Progress Notes 04/21/19 07:45 Pharmacy Note by FEATHER WASHER,PHARM Patient's serum potassium has been low since 04/17/19. Recommend a potassium supplement if appropriate. [employer] Initialized on 04/21/19 07:45 - END OF NOTE 04/20/19 15:18 Case Management Note by Jordyn Zurita CALL TO [facility] TO INQUIRE ABOUT REFERRAL FOR REHAB. REPORTS THAT THEY HAVE NOT HEARD ANYTHING BACK FROM PT'S INSURANCE YET. PRE CERT REMAINS PENDING AT THIS TIME. Initialized on 04/20/19 15:18 - END OF NOTE Assessment/Plan (1) Altered mental status Current Visit: Yes Status: Acute Qualifiers: Altered mental status type: unspecified Qualified Code(s): R41.82 - Altered mental status, unspecified Assessment & Plan: currently doing very well Code(s): R41.82 - ALTERED MENTAL STATUS, UNSPECIFIED (2) Hypertension Current Visit: No Status: Chronic Qualifiers: Hypertension type: essential hypertension Qualified Code(s): I10 - Essential (primary) hypertension Assessment & Plan: Since increasing bp med yesterday, had mostly 140s systolic, one in the 190s. Code(s): I10 - ESSENTIAL (PRIMARY) HYPERTENSION (3) Multiple falls Current Visit: Yes Status: Acute Assessment & Plan: needs rehab on discharge, not safe to care for herself at this time. Code(s): R29.6 - REPEATED FALLS (4) Pain of right clavicle Current Visit: Yes Status: Acute Code(s): M89.8X1 - OTHER SPECIFIED DISORDERS OF BONE, SHOULDER (5) Lewy body dementia Current Visit: Yes Status: Chronic Qualifiers: Dementia behavioral disturbance: without behavioral disturbance Qualified Code(s): G31.83 - Dementia with Lewy bodies; F02.80 - Dementia in other diseases classified elsewhere without behavioral disturbance Code(s): G31.83 - DEMENTIA WITH LEWY BODIES; F02.80 - DEMENTIA IN OTH DISEASES CLASSD ELSWHR W/O BEHAVRL DISTURB (6) Diabetes Current Visit: No Status: Chronic Qualifiers: Diabetes mellitus type: type 2 Diabetes mellitus complication status: with circulatory complication Code(s): E11.9 - TYPE 2 DIABETES MELLITUS WITHOUT COMPLICATIONS (7) Anemia Current Visit: Yes Status: Acute Qualifiers: Anemia type: unspecified type Qualified Code(s): D64.9 - Anemia, unspecified Code(s): D64.9 - ANEMIA, UNSPECIFIED (8) Hypokalemia Current Visit: Yes Status: Acute Code(s): E87.6 - HYPOKALEMIA
[2019-04-21] MEDS: Klor Con 10 MEQ PO SCH (09:33)
[2019-04-21] MEDS: Sodium Chloride 0.9% 10 ML FLUSH Syringe IV SCH ×2 (14:25→21:03)
[2019-04-21] MEDS: Norco 10/325 MG Tablet PO PRN (21:03)
[2019-04-22] MEDS: Sodium Chloride 0.9% 10 ML FLUSH Syringe IV SCH (05:16)
[2019-04-22 07:08] LABS: Potassium 3.3 mmol/L (3.5-5.1)
[2019-04-22] MEDS ORDERED: Zestril 10 MG PO SCH (08:00)
[2019-04-22] MEDS: Norco 10/325 MG Tablet PO PRN ×2 (09:04→16:25)
--- NOTE | 2019-04-22 09:26 | PCM.NOTE ---
Date and Time: 04/22/19920 Subjective Assessment: she is having R clavicular pain this morning. unsure if she moved the shoulder in her sleep. no SOTO currently. - Review of Systems Constitutional: No Fever Abdominal/Gastrointestinal: No Vomiting Musculoskeletal: Joint Pain Objective Exam General Appearance: no apparent distress, alert Neurologic Exam: oriented x 3, cooperative Skin Exam: normal color, warm, dry, No rash Wound Assessment: Skin/Wound Assessment Wound/Incision Assessment Start: 04/16/19 23: 23 Text: Status: Active Freq: Q6H Protocol: Document 04/22/19 02:00 AW (Rec: 04/22/19 03:13 AW [id number]) Wound/Incision Assessment Right Shoulder Wound Assessment Shift Assessment Wound Type Incision Wound Stage Non Pressure Wound Drainage Amount None Drainage Odor None/Absent General Appearance Well Approximated Open to air Clean/Dry Comment / Wound Photo Photo Taken No Respiratory Exam: normal breath sounds, lungs clear, No crackles/rales, No rhonchi, No wheezing Cardiovascular Exam: regular rate/rhythm, normal heart sounds, No murmur Extremity Exam: other (R clavicle wound is c/d/i, no erythema/exudate) OBJECTIVE DATA Vital Signs: Vital Signs - 24 hr Temp Pulse Resp BP Pulse Ox 04/22/19 06:48 98.5 F 72 18 146/65 97 04/22/19 03:51 97.9 F 75 18 159/69 98 04/21/19 23:29 98.0 F 65 20 174/74 95 04/21/19 21:00 95 04/21/19 19:42 97.7 F 76 19 139/63 95 04/21/19 16:00 98.5 F 73 16 157/71 97 04/21/19 11:08 97.8 F 71 16 150/66 97 Pain Assessment - Last Documented Pain Intensity 5 Pain Scale Used 0-10 Pain Scale Intake and Output: Intake & Output 04/19/19 04/20/19 04/21/19 04/22/19 11:59 11:59 11:59 11:59 Intake Total 2883 2940 2970 1660 Output Total 1575 1000 2650 4950 Balance 1308 1940 320 -3290 Weight 77.7 kg 76.6 kg 76.1 kg 75.2 kg Lab Results: Accuchecks Date 04/21/19 Date 04/21/19 Date 04/21/19 Time 22:00 Time 16:29 Time 11:04 Accucheck Value: 199 Accucheck Value: 160 Accucheck Value: 163 Lab Results-Last 24 Hours 04/22/19 Range/Units 05:00 Potassium 3.3 L (3.5-5.1) mmol/L Magnesium 2.0 (1.6-2.3) mg/dL Multi-Disciplinary Progress Notes: Multi-Disciplinary Progress Notes 04/21/19 11:28 Case Management Note by Jordyn Zurita EMAILED REQUESTED INFORMATION TO PT'S INSURANCE COMPANY, PER THEIR REQUEST. Initialized on 04/21/19 11:28 - END OF NOTE 04/21/19 10:52 Physical Therapy Note by Latasha Staley PATIENT SEEN EVAL + 2 VISITS. NEURO RE-EDU/BALANCE TASKS ON FEET EXECUTED WITH MOD ASSIST +1. INTERMITTANT TETERING USUALLY WITH TURNING. DIRECTIONAL WALKING REQUIRES CUES AND PACING FOR BEST EXECUTION. RESISTIVE WALKING WITH 1# CUFF WTS. STANDING LEG EXERCISES WITH SUPPORT. RIGHT ARM IMMOBILIZATION HINDERS BILATERAL TASKS AND SKEWS BALANCE INTERMITTANTLY. NEEDS CONTINUED THERAPY INTERVENTION ( BALANCE TRAINING, THERAPEUTIC EXERCISE, FUNCTIONAL ACTIVITIES, EXERTION TOLERANCE TRAINING) TO MAXIMIZE POTENTIAL FOR MOST INDEPENDENT LOF IN ADL'S. Initialized on 04/21/19 10:52 - END OF NOTE 04/21/19 10:19 Case Management Note by Jordyn Zurita PASRR COMPLETE, AND FAXED TO [facility]. Initialized on 04/21/19 10:19 - END OF NOTE Assessment/Plan (1) Altered mental status Current Visit: Yes Status: Acute Qualifiers: Altered mental status type: unspecified Qualified Code(s): R41.82 - Altered mental status, unspecified Assessment & Plan: Resolved, she is AAOx3 this morning! I expect this to wax and wane, however. She wonders if recurrent head injury with her recent falls could be contributing and this is possible. Code(s): R41.82 - ALTERED MENTAL STATUS, UNSPECIFIED (2) Hypertension Current Visit: No Status: Chronic Qualifiers: Hypertension type: essential hypertension Qualified Code(s): I10 - Essential (primary) hypertension Assessment & Plan: increased lisinopril from 10mg to 20mg/d. Would watch carefully for the next few days; any BP under 120 systolic and would decrease one of her BP meds since she is at such high risk for falls. Code(s): I10 - ESSENTIAL (PRIMARY) HYPERTENSION (3) Multiple falls Current Visit: Yes Status: Acute Code(s): R29.6 - REPEATED FALLS (4) Pain of right clavicle Current Visit: Yes Status: Acute Code(s): M89.8X1 - OTHER SPECIFIED DISORDERS OF BONE, SHOULDER (5) Lewy body dementia Current Visit: Yes Status: Chronic Qualifiers: Dementia behavioral disturbance: without behavioral disturbance Qualified Code(s): G31.83 - Dementia with Lewy bodies; F02.80 - Dementia in other diseases classified elsewhere without behavioral disturbance Code(s): G31.83 - DEMENTIA WITH LEWY BODIES; F02.80 - DEMENTIA IN OTH DISEASES CLASSD ELSWHR W/O BEHAVRL DISTURB (6) Diabetes Current Visit: No Status: Chronic Qualifiers: Diabetes mellitus type: type 2 Diabetes mellitus complication status: with circulatory complication Assessment & Plan: BS 137-199 Code(s): E11.9 - TYPE 2 DIABETES MELLITUS WITHOUT COMPLICATIONS (7) Anemia Current Visit: Yes Status: Acute Qualifiers: Anemia type: unspecified type Qualified Code(s): D64.9 - Anemia, unspecified Code(s): D64.9 - ANEMIA, UNSPECIFIED (8) Hypokalemia Current Visit: Yes Status: Acute Assessment & Plan: on po potassium now; watch, with lisinopril being increased. Code(s): E87.6 - HYPOKALEMIA
[2019-04-22] MEDS ORDERED: Zestril 20 MG PO SCH (10:00)
[2019-04-22] MEDS: ECOTRIN 81 MG PO SCH (11:09)
[2019-04-22] MEDS: ENOXAPARIN SODIUM SQ SCH (11:09)
[2019-04-22] MEDS: Prozac 20 MG PO SCH (11:10)
[2019-04-22] MEDS: Protonix 40MG Tablet PO SCH (11:10)
[2019-04-22] MEDS: Klor Con 10 MEQ PO SCH (11:10)
[2019-04-22] MEDS: NORVASC 5 MG PO SCH (11:10)
--- NOTE | 2019-04-22 15:48 | PCM.DS ---
Discharge Summary Date of Admission: 04/16/19 19:43 Admitting Physician: MAMI TONG Primary Care Provider: EMELINA CASTRO Allergies Allergies metoclopramide Allergy (Intermediate, Verified 04/16/19 23:42) dystonic symptoms acetaminophen [From Percocet] Allergy (Verified 04/17/19 13:26) morphine Allergy (Verified 04/16/19 23:42) states causes pain from head to toe and tingling from head to toe oxycodone [From Percocet] Allergy (Verified 04/17/19 13:26) Hospital Summary - Hospital Course Hospital Course: is a 69 year old female pt of [facility]UN[facility] Levine in , with PMHx Lewy Body dementia, SD (3 yrs ago), DM II, CAD with stent placed, cardiac arrhythmia , HTN, GERD, OA, depression, pacemaker, and hx vertebral fx who was admitted through ER with a fall. She had increased falls over the past several weeks. Two to three weeks ago she fell and fractured her R clavicle; had to have ORIF done by Dr. Mcmahon. Afterward she was sent home on norco 5/325; her pain was severe and she went back to the ER where the TRACTOR CRANE OPERATOR told her she HAD to get the pain under control, and to take 2 of the pain meds. She ended up getting #12 of the norco 5/325 on 03/29, then #42 on 03/31. She was then changed to percocet 7.5 (because the norco weren't working) and apparently received #42 on 04/01/19 and #42 on 04/10/19. In ER, cervical spine and head CT non acute. CXR, cervical spine, and shoulder XR showed intact hardware s/p clavicular repair, nothing acute. Her son stated she had "gone crazy" on percocet before and he thinks this may be what happened with this fall. He said prior to the surgery she was doing great. I saw him with her the first few days of her stay and she continued to have periods of disorientation alternating with periods of lucidity. These lucid periods increased during her stay. This morning she was completely oriented x 3 for the first time for me. On admission she had been off her bp meds, it was thought for 2d. Her BP were high throughout her stay. I did add amlodipine, started with 5mg and 24 hours later increased it to 10mg with her highest BP then of 170 systolic. I then increased her lisinopril from 10mg/d to 20mg/d; this done on the day of discharge. She is concerned that her BP not become so low that it contributes to a fall, and I agree. Blood sugars have been fairly well controlled, in the mid 100s. Her potassium was low during her stay, around 3.3, so I started her on K-dur 10 mEq daily. 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 Ryder in the past. - Vitals & Intake/Output Vital Signs: Vital Signs Temperature 98 F 04/22/19 12:00 Pulse Rate 71 04/22/19 12:00 Respiratory Rate 20 04/22/19 12:00 Blood Pressure 180/79 04/22/19 12:00 O2 Sat by Pulse Oximetry 97 04/22/19 12:00 Intake & Output: Intake & Output 04/20/19 04/21/19 04/22/19 04/23/19 11:59 11:59 11:59 11:59 Intake Total 2940 2970 1660 Output Total 1000 2650 4950 Balance 1940 320 -3290 Weight 76.6 kg 76.1 kg 75.2 kg - Lab Result Diagrams: 04/21/19 05:14 04/22/19 05:00 Lab Results-Last 24 Hrs: Accuchecks Date 04/22/19 Date 04/22/19 Date 04/21/19 Date 04/21/19 Time 11:30 Time 07:30 Time 22:00 Time 16:29 Accucheck Value: 149 Accucheck Value: 140 Accucheck Value: 199 Accucheck Value: 160 Lab Results-Last 24 Hours 04/22/19 Range/Units 05:00 Potassium 3.3 L (3.5-5.1) mmol/L Magnesium 2.0 (1.6-2.3) mg/dL Micro Results-Entire Visit: Microbiology 04/16/19 22:29 Urine Culture - Final Catherized NO GROWTH Accuchecks Date 04/22/19 Date 04/22/19 Date 04/21/19 Date 04/21/19 Time 11:30 Time 07:30 Time 22:00 Time 16:29 Accucheck Value: 149 Accucheck Value: 140 Accucheck Value: 199 Accucheck Value: 160 - Procedures and Test Procedures and Tests throughout Hospitalization: Therapy Orders & Screens 04/16/19 23:23 OT Screen per Nursing Assess Comment: Protocol Order Physician Instructions: Greater than 3 points order OT Admission Screening Reason For Exam: Triggered on Admission Diagnosis: Frequent falls; Pain in right clavicle Open Wound/Cellutlitis/Pressure Ulcers: No Acute Fx/ORIF/Change in wt bearing status: No Severe MUSCULOSKELETAL pain: Yes ADL Dysfunction: Yes Acute CVA w/Hemiparesis/Hemiplegia: No Decreased Functional Mobility/Strength: Yes Sprain/Strain: No Acute Post-op Mobility Dysfunction: Yes Total Points: 12 PT Screen per Nursing Assess Comment: Protocol Order Physician Instructions: Greater than 3 points order PT Admission Screenin Reason For Exam: Triggered on Admission Diagnosis: Frequent falls; Pain in right clavicle Open Wound/Cellutlitis/Pressure Ulcers: No Acute Fx/ORIF/Change in wt bearing status: No Severe MUSCULOSKELETAL pain: Yes ADL Dysfunction: Yes Acute CVA w/Hemiparesis/Hemiplegia: No Decreased Functional Mobility/Strength: Yes Sprain/Strain: No Acute Post-op Mobility Dysfunction: Yes Total Points: 12 ST Screen per Nursing Assess Comment: Protocol Order Physician Instructions: Greater than [address] Admission Screening Reason For Exam: Triggered on Admission Diagnosis: Frequent falls; Pain in right clavicle CVA/Dyshpagia/Aphasia: No Cognitive Deficits: Yes Dehydration/Nutrition Deficit: Yes Reflux: Yes Oral-Motor Difficulties: No Pneumonia: No Skilled Nursing Resident: No Total Points: 11 04/18/19 16:04 OT Eval and Treat ( Order) ROUTINE Comment: Consulting Provider: Physician Instructions: Reason For Exam: Evaluate: Yes Treat: Yes Reason for Evaluation: INSURANCE REQUIRES O.T. EVAL NOTES FOR POSSIBLE REHAB STAY Diagnosis: AMS, MULTIPLE FALLS, PT Eval & Treat ( Order) ROUTINE Reason for Eval:: MULTIPLE FALLS AT HOME, R ARM IN SLING FROM HUMERUS FX REPAIR ON 04/12/19, PT'S INSURANCE REQUIRES P.T. NOTES FOR POSSIBLE REHAB STAY Diagnosis: AMS, MULTIPLE FALLS, LEWY BODY DEMENTIA Discharge Exam General Appearance: no apparent distress, obese Neurologic Exam: oriented x 3, cooperative Eye Exam: eyes nml inspection Ears, Nose, Throat Exam: moist mucous membranes Neck Exam: normal inspection Respiratory Exam: normal breath sounds, lungs clear, No respiratory distress, No crackles/rales, No rhonchi, No wheezing Cardiovascular Exam: regular rate/rhythm, normal heart sounds, No tachycardia Gastrointestinal/Abdomen Exam: soft, normal bowel sounds, No tenderness Extremity Exam: other (RUE in sling), No pedal edema Skin Exam: normal color, warm, dry, No rash Wound Assessment: Skin/Wound Assessment Wound/Incision Assessment Start: 04/16/19 23: 23 Text: Status: Active Freq: Q6H Protocol: Document 04/22/19 14:00 CL (Rec: 04/22/19 14:51 CL [id number]) Wound/Incision Assessment Right Shoulder Wound Assessment Shift Assessment Wound Type Incision Wound Stage Non Pressure Wound Drainage Amount None Drainage Odor None/Absent General Appearance Well Approximated Open to air Clean/Dry Comment / Wound Photo Photo Taken No Final Diagnosis/Problem List - Final Discharge Diagnosis/Problem (1) Altered mental status Current Visit: Yes Status: Resolved Assessment & Plan: Much improved. I think was multifactorial; due to percocet overdose, due to exacerbation of dementia s/p fall with clavicular fx, due to repeat head trauma recently with falls. Code(s): R41.82 - ALTERED MENTAL STATUS, UNSPECIFIED (2) Hypertension Current Visit: No Status: Chronic Assessment & Plan: No on amlodipine 10mg daily and lisinopril 20mg/d. Apparently she was on imdur int he past and was taken off of it but she can't remember if it was due to a reaction. Code(s): I10 - ESSENTIAL (PRIMARY) HYPERTENSION (3) Multiple falls Current Visit: Yes Status: Chronic Assessment & Plan: Would really benefit from therapy in a controlled environment. Code(s): R29.6 - REPEATED FALLS (4) Pain of right clavicle Current Visit: Yes Status: Acute Assessment & Plan: s/p fx and ORIF. The wound looks great. Code(s): M89.8X1 - OTHER SPECIFIED DISORDERS OF BONE, SHOULDER (5) Lewy body dementia Current Visit: Yes Status: Chronic Code(s): G31.83 - DEMENTIA WITH LEWY BODIES; F02.80 - DEMENTIA IN OTH DISEASES CLASSD ELSWHR W/O BEHAVRL DISTURB (6) Diabetes Current Visit: No Status: Chronic Assessment & Plan: stable. A1c is 7.72. Code(s): E11.9 - TYPE 2 DIABETES MELLITUS WITHOUT COMPLICATIONS (7) Anemia Current Visit: Yes Status: Acute Assessment & Plan: rechecking today Code(s): D64.9 - ANEMIA, UNSPECIFIED (8) Hypokalemia Current Visit: Yes Status: Acute Assessment & Plan: added kdur 10 mEq daily. Code(s): E87.6 - HYPOKALEMIA - Discharge Disposition: DC TO ANY "OTHER" CUSTODIAL Condition: Stable Prescriptions: New Ibuprofen [IBUPROFEN 400 MG TABLET] 1 tablet PO TID PRN #20 tablet PRN Reason: Pain Potassium Chloride 10 Meq Tab* [Klor Con 10 MEQ] 10 meq PO DAILY tab Hydrocodone/APAP 10/325 mg [[place] 10/325 MG Tablet] 1 tab PO Q6H PRN PRN tablet PRN Reason: Pain Amlodipine Besylate 5 mg [Norvasc 5 mg] 10 mg PO QAM tablet Lisinopril 20 mg [Zestril 20 MG] 20 mg PO DAILY tablet Continue Fluoxetine HCl [Prozac] 60 mg PO DAILY Atorvastatin Calcium [Lipitor] 80 mg PO DAILY Aspirin EC 81 mg [Ecotrin 81 mg] 81 mg PO DAILY Ondansetron ODT 4 MG [Zofran Odt 4 mg] 4 mg PO Q6HPRN PRN PRN Reason: Nausea Polyethylene Glycol 3350 17 gm [Miralax Powder 17GM PACKET] 17 gm PO DAILY PRN PRN PRN Reason: Constipation Pantoprazole Sodium 40 mg PO DAILY Ergocalciferol (Vitamin D2) [Vitamin D2] 1 tab PO WEEKLY Insulin Lispro [Humalog] 1 unit SQ UD Discontinued Lisinopril [Zestril] 10 mg PO DAILY Isosorbide Mononitrate 30 mg [Imdur 30 MG] 30 mg PO DAILY Oxycodone HCl/Acetaminophen [Oxycodon-Acetaminophen 7.5-325] 1 tablet PO Q4H PRN PRN PRN Reason: Pain Follow up with: CASPER MCMAHON [NON-STAFF PHY W/O PRIVILEGES] - 04/25/19 8:15 am MAMI TONG [ACTIVE STAFF] - 1 Week
[2019-04-22 16:54] VITALS: BP 155/70; PULSE 70; O2SAT 96
== END 2019-04-22 17:30 | DRG 948 ==
LOC: ED 16:17 → OBSVTOIN 19:43 → MED SURG 19:43
PROVIDERS: ADMIT Family Medicine; ATTEND Family Medicine
DX: R41.82 Altered mental status, unspecified (principal); N39.0 Urinary tract infection, site not specified; I10 Essential (primary) hypertension; R29.6 Repeated falls; Z98.890 Other specified postprocedural states; M25.511 Pain in right shoulder; G31.83 Neurocognitive disorder with Lewy bodies; F02.80 Dementia in other diseases classified elsewhere, unspecified severity, without behavioral disturbance, psychotic disturbance, mood disturbance, and anxiety; E11.9 Type 2 diabetes mellitus without complications; D64.9 Anemia, unspecified; E87.6 Hypokalemia; Z79.899 Other long term (current) drug therapy; I16.0 Hypertensive urgency; I25.2 Old myocardial infarction; R51 Headache; W19.XXXA Unspecified fall, initial encounter
CPT/HCPCS: 36000; 36415; 70450; 71045; 72125; 73000; 73030; 80048; 80053; 80307; 81001; 82140; 82962; 83036; 83735; 84132; 84134; 84484; 85025; 85027; 87086; 93005; 94762; 96360; 96361; 99285; J0360; J0696; J1650; J2550; Q0162; 97110-GP; A9270-GY

== ENCOUNTER 2019-07-08 16:11 | Emergency (ER) | payer MEDICARE ==
[2019-07-08] MEDS ORDERED: BABY ASPIRIN 81 MG CHEW PO ONE (16:22)
[2019-07-08] MEDS ORDERED: Nitrostat 0.4 MG (ED) SL ONE (16:22)
--- NOTE | 2019-07-08 16:22 | ERPHSYRPT ---
- History of Present Illness Time Seen by Provider: 07/08/19 16:22 Historian: patient Exam Limitations: no limitations Physician History: 69 y/o white female presents with one week h/o nonradiating substernal central cp described as intermittent pressure and tightness present at rest. pt has h/o pacemaker placement in the past and CABG 2014. pt denies soa, denies abd pain. only slightly improved with 2 ntg. patient took one baby asa today. Timing/Duration: week(s), intermittent Activities at Onset: rest Quality: pressure, tightness Location: substernal, central Chest Pain Radiation: no radiation Severity of Pain-Max: mild Severity of Pain-Current: mild Modifying Factors: Improves With: nitroglycerin (mild improvement) Associated Symptoms: palpitations, No shortness of breath, No syncope Prior Chest Pain/Cardiac Workup: cardiac cath (pt with pacemaker placement. pt with h/o cabg 2014), heart attack Nitro Today/Relief: 0.4 mg x 2, provided at home, mild relief Aspirin Treatment Today: 81 mg x 1, provided at home Allergies/Adverse Reactions: metoclopramide Allergy (Intermediate, Verified 07/08/19 16:22) dystonic symptoms acetaminophen [From Percocet] Allergy (Verified 07/08/19 16:22) morphine Allergy (Verified 07/08/19 16:22) states causes pain from head to toe and tingling from head to toe oxycodone [From Percocet] Allergy (Verified 07/08/19 16:22) Home Medications: Atorvastatin Calcium [Lipitor] 80 mg PO DAILY 05/17/16 [History] Fluoxetine HCl [Prozac] 60 mg PO DAILY 05/17/16 [History] Aspirin EC 81 mg [Ecotrin 81 mg] 81 mg PO DAILY 12/08/18 [History] Ergocalciferol (Vitamin D2) [Vitamin D2] 1 tab PO WEEKLY 04/17/19 [History] Insulin Lispro [Humalog] 1 unit SQ UD 04/17/19 [History] Ondansetron ODT 4 MG [Zofran Odt 4 mg] 4 mg PO Q6HPRN PRN 04/17/19 [ History] Pantoprazole Sodium 40 mg PO DAILY 04/17/19 [History] Hx Tetanus, Diphtheria Vaccination/Date Given: Yes Hx Influenza Vaccination/Date Given: Yes Hx Pneumococcal Vaccination/Date Given: Yes - Review of Systems Constitutional: No Symptoms Eyes: No Symptoms Ears, Nose, & Throat: No Symptoms Respiratory: No Symptoms Cardiac: Chest Pain Abdominal/Gastrointestinal: No Symptoms Genitourinary Symptoms: No Symptoms Musculoskeletal: No Symptoms Skin: No Symptoms Neurological: No Symptoms Psychological: No Symptoms Endocrine: No Symptoms Hematologic/Lymphatic: No Symptoms Immunological/Allergic: No Symptoms All Other Systems: Reviewed and Negative - Past Medical History Pertinent Past Medical History: Yes Neurological History: Migraines, Peripheral Neuropathy, Other ENT History: Cataracts Cardiac History: Coronary Artery Disease, High Cholesterol, Hypertension, Myocardial Infarction ([place]) Respiratory History: No Pertinent History Endocrine Medical History: Diabetes Type II Musculoskeletal History: Fractures, Osteoarthritis GI Medical History: GERD History: No Pertinent History Psycho-Social History: Depression Female Reproductive Disorders: Other Other Medical History: CABG X 6 04/2016 AFTER [place]. 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 DENIES ANY ANGINA - Past Surgical History Past Surgical History: Yes Neuro Surgical History: No Pertinent History Cardiac: CABG, Cardiac Catheterization, Cardiac Stent, Pacemaker Respiratory: No Pertinent History Gastrointestinal: Cholecystectomy Genitourinary: No Pertinent History Musculoskeletal: No Pertinent History Female Surgical History: Hysterectomy - Social History Smoking Status: Never smoker Exposure to second hand smoke: No Alcohol Use: None Drug Use: none Patient Lives Alone: No Significant Family History: heart disease, hypertension - Nursing Vital Signs Nursing Vital Signs: Initial Vital Signs Temperature 97.5 F 07/08/19 16:12 Pulse Rate 80 07/08/19 16:12 Respiratory Rate 16 07/08/19 16:12 Blood Pressure 146/94 07/08/19 16:12 O2 Sat by Pulse Oximetry 98 07/08/19 16:12 Pain Scale Pain Intensity 6 - Physical Exam General Appearance: no apparent distress, alert, anxiety Eye Exam: PERRL/EOMI, eyes nml inspection Ears, Nose, Throat Exam: normal ENT inspection, moist mucous membranes Neck Exam: normal inspection, non-tender, supple, full range of motion Respiratory Exam: normal breath sounds, chest tenderness, lungs clear, airway intact, No respiratory distress Cardiovascular Exam: regular rate/rhythm, normal heart sounds, normal peripheral pulses Gastrointestinal/Abdomen Exam: soft, normal bowel sounds, No tenderness Pelvic Exam: not done Rectal Exam: not done Back Exam: normal inspection, normal range of motion, No CVA tenderness, No vertebral tenderness Extremity Exam: normal inspection, normal range of motion, pelvis stable Neurologic Exam: alert, oriented x 3, cooperative, 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 Skin Exam: normal color, warm, dry Lymphatic Exam: No adenopathy SpO2 Interpretation: normal - Course Nursing assessment & vital signs reviewed: Yes EKG Interpreted by Me: RATE (92), Sinus Rhythm, Left Nahma Deviation, Non- specific ST Changes, Other (no changes compared to ekg dated 04/16/19) Ordered Tests: Active Orders 24 hr Category Date Time Status Android Framework Developer STAT Care 07/08/19 16:22 Active EKG-ER Only STAT Care 07/08/19 16:22 Active IV Insertion STAT Care 07/08/19 16:22 Active Pulse Oximetry (ED) STAT Care 07/08/19 16:22 Active CHEST 1 VIEW (PORTABLE) Stat Exams 07/08/19 16:22 Completed CHEST WITH CONTRAST [CT] Stat Exams 07/08/19 17:53 Taken CBC W DIFF Stat Lab 07/08/19 16:30 Completed CMP Stat Lab 07/08/19 16:30 Completed D-DIMER QUANTITATION Stat Lab 07/08/19 16:30 Completed NT PRO BNP Stat Lab 07/08/19 16:30 Completed TROPONIN Q3H Lab 07/08/19 16:30 Completed TROPONIN Q3H Lab 07/08/19 19:35 Completed TROPONIN Q3H Lab 07/08/19 22:30 Ordered TROPONIN Q3H Lab 07/09/19 01:30 Ordered TROPONIN Q3H Lab 07/09/19 04:30 Ordered Medication Summary Discontinued Medications Generic Name Dose Route Start Last Admin Trade Name Freq PRN Reason Stop Dose Admin Aspirin 324 mg 07/08/19 16:22 07/08/19 16:36 Baby Aspirin 81 Mg Chew PO 07/08/19 16:23 324 mg STAT ONE Administration Hydromorphone HCl 0.5 mg 07/08/19 19:13 07/08/19 19:26 Hydromorphone 1 Mg/Ml Ampule IV 07/08/19 19:14 0.5 mg STAT ONE Administration Hydromorphone HCl Confirm 07/08/19 19:20 Hydromorphone 1 Mg/Ml Ampule Administered 07/08/19 19:21 Dose 1 mg .ROUTE .STK-MED ONE Sodium Chloride 500 mls @ 500 mls/hr 07/08/19 17:52 07/08/19 18:00 Sodium Chloride 0.9% 500 Ml IV 07/08/19 18:51 500 mls/hr .Q1H ONE Administration Sodium Chloride Confirm 07/08/19 17:56 Sodium Chloride 0.9% 500 Ml Administered 07/08/19 17:57 Dose 500 mls @ ud IV .STK-MED ONE Nitroglycerin 0.4 mg 07/08/19 16:22 07/08/19 16:36 Nitrostat 0.4 Mg (Ed) SL 07/08/19 16:23 0.4 mg STAT ONE Administration Ondansetron HCl 4 mg 07/08/19 19:13 07/08/19 19:25 Zofran 4 Mg/2 Ml Vial IV 07/08/19 19:14 4 mg STAT ONE Administration Ondansetron HCl Confirm 07/08/19 19:20 Zofran 4 Mg/2 Ml Vial Administered 07/08/19 19:21 Dose 4 mg .ROUTE .STK-MED ONE Lab/Rad Data: Laboratory Result Diagrams 07/08/19 16:30 07/08/19 16:30 Laboratory Results 07/08/19 07/08/19 07/08/19 Range/Units 19:35 16:30 16:30 WBC (4.0-10.5) K/mm3 RBC (4.1-5.4) M/mm3 Hgb (12.0-16.0) gm/dl Hct (35-47) % MCV (78-100) fl MCH (26-32) pg MCHC (32-36) g/dl RDW (11.5-14.0) % Plt Count (150-450) K/mm3 MPV (6-9.5) fl Gran % (36.0-66.0) % Eos # (Auto) (0-0.5) Absolute Lymphs (auto) (1.0-4.6) Absolute Monos (auto) (0.0-1.3) Lymphocytes % (24.0-44.0) % Monocytes % (0.0-12.0) % Eosinophils % (0.00-5.0) % Basophils % (0.0-0.4) % Absolute Granulocytes (1.4-6.9) Basophils # (0-0.4) D-Dimer 703 H* (215-500) ng/mL Sodium (137-145) mmol/L Potassium (3.5-5.1) mmol/L Chloride (98-107) mmol/L Carbon Dioxide (22-30) mmol/L Anion Gap (5-15) MEQ/L BUN (7-17) mg/dL Creatinine (0.52-1.04) mg/dL Estimated GFR ML/MIN Glucose (74-106) mg/dL Calcium (8.4-10.2) mg/dL Total Bilirubin (0.2-1.3) mg/dL AST (14-36) U/L ALT (0-35) U/L Alkaline Phosphatase (38-126) U/L Troponin I < 0.012 < 0.012 (0.000-0.034) ng/mL NT-Pro-B Natriuret Pep (0-900) pg/mL Serum Total Protein (6.3-8.2) g/dL Albumin (3.5-5.0) g/dL 07/08/19 07/08/19 Range/Units 16:30 16:30 WBC 8.0 (4.0-10.5) K/mm3 RBC 4.37 (4.1-5.4) M/mm3 Hgb 12.8 (12.0-16.0) gm/dl Hct 38.9 (35-47) % MCV 89.0 (78-100) fl MCH 29.3 (26-32) pg MCHC 32.9 (32-36) g/dl RDW 13.0 (11.5-14.0) % Plt Count 287 (150-450) K/mm3 MPV 9.9 H (6-9.5) fl Gran % 56.6 (36.0-66.0) % Eos # (Auto) 0.22 (0-0.5) Absolute Lymphs (auto) 2.58 (1.0-4.6) Absolute Monos (auto) 0.66 (0.0-1.3) Lymphocytes % 32.1 (24.0-44.0) % Monocytes % 8.2 (0.0-12.0) % Eosinophils % 2.7 (0.00-5.0) % Basophils % 0.4 (0.0-0.4) % Absolute Granulocytes 4.55 (1.4-6.9) Basophils # 0.03 (0-0.4) D-Dimer (215-500) ng/mL Sodium 141 (137-145) mmol/L Potassium 3.8 (3.5-5.1) mmol/L Chloride 103 (98-107) mmol/L Carbon Dioxide 27 (22-30) mmol/L Anion Gap 14.4 (5-15) MEQ/L BUN 15 (7-17) mg/dL Creatinine 0.73 (0.52-1.04) mg/dL Estimated GFR > 60.0 ML/MIN Glucose 107 H (74-106) mg/dL Calcium 10.1 (8.4-10.2) mg/dL Total Bilirubin 0.80 (0.2-1.3) mg/dL AST 34 (14-36) U/L ALT 24 (0-35) U/L Alkaline Phosphatase 124 (38-126) U/L Troponin I (0.000-0.034) ng/mL NT-Pro-B Natriuret Pep 241 (0-900) pg/mL Serum Total Protein 8.4 H (6.3-8.2) g/dL Albumin 4.4 (3.5-5.0) g/dL - Progress Progress: improved Air Movement: good Progress Note: 07/08/19 17:52 cxr-no acute process 07/08/19 19:09 cta chest-no pulm emboli. no acute process. 07/08/19 20:21 no cp. pt feeling better. Blood Culture(s) Obtained: No Antibiotics given: No Counseled pt/family regarding: lab results, diagnosis, need for follow-up, rad results - Departure Departure Disposition: Home Clinical Impression: Chest pain Condition: Stable Critical Care Time: No Referrals: EMELINA CASTRO [Primary Care Provider] - Additional Instructions: take your medications as prescribed. follow up with commercial litigation attorney next week. return to ED if symptoms recur.
[2019-07-08 16:33] LABS: Absolute Neutrophil Ct (ANC) 4.55 (1.4-6.9); BASOPHIL % 0.4 % (0.0-0.4); Basophil (Absolute #) 0.03 (0-0.4); Eosinophil % 2.7 % (0.00-5.0); Eosinophil (Absolute #) 0.22 (0-0.5); Hematocrit 38.9 % (35-47); Hemoglobin 12.8 gm/dl (12.0-16.0); Lymphocyte (Absolute #) 2.58 (1.0-4.6); Lymphocytes % 32.1 % (24.0-44.0); Mean Corpuscular Hemoglobin 29.3 pg (26-32); Mean Corpuscular Hgb Concent. 32.9 g/dl (32-36); Mean Platelet Volume 9.9 fl (6-9.5); Monocyte (Absolute #) 0.66 (0.0-1.3); Monocytes % 8.2 % (0.0-12.0); Neutrophil % 56.6 % (36.0-66.0); Platelet Count 287 K/mm3 (150-450); Red Blood Count 4.37 M/mm3 (4.1-5.4)
[2019-07-08 16:55] LABS: ALBUMIN 4.4 g/dL (3.5-5.0); ALKALINE PHOSPHATASE 124 U/L (38-126); ANION GAP 14.4 MEQ/L (5-15); BLOOD UREA NITROGEN 15 mg/dL (7-17); CHLORIDE 103 mmol/L (98-107); Calcium 10.1 mg/dL (8.4-10.2); Carbon Dioxide 27 mmol/L (22-30); Creatinine 1 0.73 mg/dL (0.52-1.04); Glucose 107 mg/dL (74-106); NT PRO BNP 241 pg/mL (0-900); Potassium 3.8 mmol/L (3.5-5.1); SGOT/AST 34 U/L (14-36); SGPT/ALT 24 U/L (0-35); SODIUM 141 mmol/L (137-145); Total Protein 8.4 g/dL (6.3-8.2)
[2019-07-08] MEDS ORDERED: Sodium Chloride 0.9% 500 ML 500 ML IV ONE ×2 (17:52→17:56)
--- NOTE | 2019-07-08 18:19 | XRAY ---
Indication: Chest pain. Comparison: April 16, 2019. Portable chest remains clear. Heart and mediastinal structures within normal limits again with CABG surgery and left-sided dual lead pacemaker. Bony thorax intact again with mild osteopenia, degenerative changes, and old right clavicle fracture. Impression: Stable nonacute chest with chronic features.
[2019-07-08 18:32] VITALS: BP 163/65; O2SAT 99
[2019-07-08] MEDS ORDERED: Hydromorphone 1 mg/ml Ampule IV ONE (19:13)
[2019-07-08] MEDS ORDERED: Zofran 4 MG/2 ML VIAL IV ONE (19:13)
[2019-07-08] MEDS ORDERED: Zofran 4 MG/2 ML VIAL ONE (19:20)
[2019-07-08] MEDS ORDERED: Hydromorphone 1 mg/ml Ampule ONE (19:20)
[2019-07-08 20:24] VITALS: PULSE 61
--- NOTE | 2019-07-08 21:45 | XRAY ---
Indication: Chest pain. Elevated d-dimer. Multiple contiguous axial images obtained through the chest using 99 cc Isovue-370 contrast and PE protocol. Comparison: CT chest without contrast October 28, 2015. There is good opacification of the pulmonary arteries to include the lobar and segmental branches. No filling defect or pulmonary embolus. Heart is not enlarged. There is been interval CABG surgery as well as new left-sided dual-lead pacemaker. Aorta is mildly arteriosclerotic without aneurysm/dissection. No pathologic mediastinal/hilar lymphadenopathy. Lungs are inflated with stable minimal right base fibrosis/scarring. No suspicious pulmonary mass, infiltrate, or effusion. Bony thorax again demonstrates osteopenia, mild multilevel degenerative spondylosis, and remote T2 compression fracture. New remote-appearing L2 superior endplate fracture with less than 50% height loss. Also new finding for old right 2-5 rib fractures. Limited upper abdomen unremarkable. Impression: 1. Negative pulmonary embolus. No acute cardiopulmonary abnormalities. 2. Interval CABG surgery and new left-sided pacemaker. 3. Incidental chronic bony findings. CTDI 19.61
== END 2019-07-08 20:32 | disposition home or self-care (01) ==
LOC: ED 16:11
DX: R07.9 Chest pain, unspecified (principal); I10 Essential (primary) hypertension; E78.00 Pure hypercholesterolemia, unspecified; I25.10 Atherosclerotic heart disease of native coronary artery without angina pectoris; I25.2 Old myocardial infarction; E11.9 Type 2 diabetes mellitus without complications; G62.9 Polyneuropathy, unspecified; Z79.4 Long term (current) use of insulin; Z79.899 Other long term (current) drug therapy
CPT/HCPCS: 36000; 36415; 71045; 71260; 80053; 83880; 84484; 85025; 85379; 93005; 93041; 94760; 96360; 96374; 96375; 99284; 99291; 99292; J1170; J2405; A9270-GY

== ENCOUNTER 2019-09-26 17:23 | Emergency (ER) | payer MEDICARE ==
--- NOTE | 2019-09-26 19:29 | ERPHSYRPT ---
- History of Present Illness Time Seen by Provider: 09/26/19 19:38 Source: patient Exam Limitations: no limitations Patient Subjective Stated Complaint: Pt had been taking Bactrim for 4 days for a UTI and pt has tremors but stated that they were exacerbated, N&V, body aches , pt is unable to walk without assistance, decreased appetite, glucose had dropped to 29 Triage Nursing Assessment: Pt brought in by her son, vitals wnl, rates generalized pain as 6/10, last bm 2 days ago which she reports as normal, has only eaten nakul crackers today, pulses normal, lungs clear, doesn't appear to be in any distress Physician History: The patient is a 69 y/o female with a pmh significant for frequent falls, DM, CAD, vertebral fx, ? Parkinson's with ? Lewy body dementia according to son, as well as a recently diagnosed UTI who presents with a chief complaint of an "allergic reaction". She reportedly was diagnosed with a UTI last week and started on Bactrim. She endorsed that she has been feeling more "shaky" over the past couple of days and a couple of nights about her BGL dropped to 29 but she has had no additional episodes of hypoglycemia since that time. She reported has been nauseated as well and reports vomiting today. She was told to come to the ED by her primary care provider for further evaluation and management. Endorsed having pain all over but this is reportedly chronic and normal for her as well as her resting tremors. Allergies/Adverse Reactions: metoclopramide Allergy (Intermediate, Verified 07/08/19 16:22) dystonic symptoms morphine Allergy (Verified 07/08/19 16:22) states causes pain from head to toe and tingling from head to toe oxycodone [From Percocet] Allergy (Verified 07/08/19 16:22) sulfamethoxazole [From Bactrim] Allergy (Verified 09/26/19 18:54) trimethoprim [From Bactrim] Allergy (Verified 09/26/19 18:54) Home Medications: Atorvastatin Calcium [Lipitor] 80 mg PO DAILY 05/17/16 [History] Fluoxetine HCl [Prozac] 60 mg PO DAILY 05/17/16 [History] Aspirin EC 81 mg [Ecotrin 81 mg] 81 mg PO DAILY 12/08/18 [History] Ergocalciferol (Vitamin D2) [Vitamin D2] 1 tab PO WEEKLY 04/17/19 [History] Insulin Lispro [Humalog] 1 unit SQ UD 04/17/19 [History] Ondansetron ODT 4 MG [Zofran Odt 4 mg] 4 mg PO Q6HPRN PRN 04/17/19 [ History] Pantoprazole Sodium 40 mg PO DAILY 04/17/19 [History] Amlodipine Besylate 5 mg [Norvasc 5 mg] 5 mg PO QAM 09/26/19 [History] Insulin Glargine,Hum.rec.anlog [Sonal Reyes] 55 unit SQ QAM 09/26/19 [ History] Hx Tetanus, Diphtheria Vaccination/Date Given: Yes Hx Influenza Vaccination/Date Given: Yes Hx Pneumococcal Vaccination/Date Given: Yes - Review of Systems Constitutional: Weakness, No Fever, No Chills Eyes: No Symptoms Ears, Nose, & Throat: No Symptoms Respiratory: No Symptoms, No Cough, No Cyanosis, No Dyspnea Cardiac: No Chest Pain Abdominal/Gastrointestinal: Nausea, Vomiting, No Abdominal Pain, No Diarrhea Genitourinary Symptoms: No Dysuria, No Frequency, No Hematuria, No Hesitancy, No Incontinence Musculoskeletal: Myalgias, Other Neurological: Other Psychological: No Symptoms All Other Systems: Reviewed and Negative - Past Medical History Pertinent Past Medical History: Yes Neurological History: Migraines, Peripheral Neuropathy, Other ENT History: Cataracts Cardiac History: Angina, Myocardial Infarction ([place]), Other Respiratory History: No Pertinent History Endocrine Medical History: Diabetes Type II Musculoskeletal History: Arthritis GI Medical History: GERD History: No Pertinent History Psycho-Social History: Depression Female Reproductive Disorders: Other Other Medical History: CABG X 6 04/2016 AFTER [place]. 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 DENIES ANY ANGINA - Past Surgical History Past Surgical History: Yes Neuro Surgical History: No Pertinent History Cardiac: CABG, Cardiac Catheterization, Cardiac Stent, Pacemaker Respiratory: No Pertinent History Gastrointestinal: Cholecystectomy Genitourinary: No Pertinent History Musculoskeletal: Other Female Surgical History: Hysterectomy Other Surgical History: shoulder - Social History Smoking Status: Never smoker Exposure to second hand smoke: No Alcohol Use: None Drug Use: none Patient Lives Alone: No Significant Family History: heart disease, hypertension - Female History Hx Now: No - Nursing Vital Signs Nursing Vital Signs: Initial Vital Signs Temperature 98.7 F 09/26/19 18:40 Pulse Rate 77 09/26/19 18:40 Respiratory Rate 14 09/26/19 18:40 Blood Pressure 142/76 09/26/19 18:40 O2 Sat by Pulse Oximetry 97 09/26/19 18:40 Pain Scale Pain Intensity 0 - Physical Exam General Appearance: no apparent distress Eye Exam: PERRL/EOMI, No photophobia, No EOM palsy/anisocoria Ears, Nose, Throat Exam: normal ENT inspection, pharynx normal, moist mucous membranes, No pharyngeal erythema Neck Exam: normal inspection, supple Respiratory Exam: normal breath sounds, lungs clear, No chest tenderness, No diminished breath sounds Cardiovascular Exam: regular rate/rhythm, normal heart sounds, capillary refill <2 sec Gastrointestinal/Abdomen Exam: soft, No tenderness, No distention, No mass, No rebound Pelvic Exam: not done Rectal Exam: deferred Back Exam: normal inspection Extremity Exam: normal inspection Neurologic Exam: alert, oriented x 3, cooperative Skin Exam: normal color, warm, dry, No rash, No petechiae, No jaundice SpO2 Interpretation: normal SpO2: 98 O2 Delivery: Room Air - Course Nursing assessment & vital signs reviewed: Yes EKG Interpreted by Me: RATE, Other (No evidence of STEMI) Rhythm Strip: Rate Ordered Tests: Medication Summary Discontinued Medications Generic Name Dose Route Start Last Admin Trade Name Freq PRN Reason Stop Dose Admin Ondansetron HCl 4 mg 09/26/19 19:43 09/26/19 20:09 Zofran 4 Mg/2 Ml Vial IV 09/26/19 19:44 4 mg STAT ONE Administration Ondansetron HCl Confirm 09/26/19 19:59 Zofran 4 Mg/2 Ml Vial Administered 09/26/19 20:00 Dose 4 mg .ROUTE .STK-MED ONE Lab/Rad Data: Laboratory Result Diagrams 09/26/19 19:58 09/26/19 19:58 Laboratory Results 09/26/19 09/26/19 09/26/19 Range/Units 19:58 19:58 19:58 WBC 8.2 (4.0-10.5) K/mm3 RBC 4.08 L (4.1-5.4) M/mm3 Hgb 11.8 L (12.0-16.0) gm/dl Hct 36.1 (35-47) % MCV 88.5 (78-100) fl MCH 28.9 (26-32) pg MCHC 32.7 (32-36) g/dl RDW 14.0 (11.5-14.0) % Plt Count 264 (150-450) K/mm3 MPV 10.0 (7.5-11.0) fl Segmented Neutrophils 74 H (36.0-66.0) % Lymphocytes (Manual) 24 (24-44) % Monocytes (Manual) 1 (0.0-12.0) % Eosinophils (Manual) 1 (0.00-3.0) % Hypochromia 2+ Toxic Granulation 2+ Platelet Estimate NORMAL (NORMAL) RBC Morphology ABNORMAL Poikilocytosis 3+ Anisocytosis 2+ [place] Cells 1+ Sodium 136 L (137-145) mmol/L Potassium 4.5 (3.5-5.1) mmol/L Chloride 102 (98-107) mmol/L Carbon Dioxide 23 (22-30) mmol/L Anion Gap 15.2 H (5-15) MEQ/L BUN 16 (7-17) mg/dL Creatinine 0.99 (0.52-1.04) mg/dL Estimated GFR 59.3 ML/MIN Glucose 130 H (74-106) mg/dL Calcium 9.6 (8.4-10.2) mg/dL Total Bilirubin 0.60 (0.2-1.3) mg/dL Direct Bilirubin 0.2 (0.0-0.4) mg/dL AST 37 H (14-36) U/L ALT 23 (0-35) U/L Alkaline Phosphatase 116 (38-126) U/L Troponin I < 0.012 (0.000-0.034) ng/mL Serum Total Protein 7.8 (6.3-8.2) g/dL Albumin 4.3 (3.5-5.0) g/dL Lipase 39 (23-300) U/L - Progress Progress: improved Progress Note: 09/26/19 19:00 Nontoxic in appearance. Labs were relatively reassuring. Anemia is her baseline. Low suspicion for infectious etiology at this time. Patient with no symptoms consistent with an allergic reaction at this time. Patient denying symptoms of a UTI and is currently on Bactrim and obtaining UA today thought to be low yield. She had no active vomiting in the ED and appears hydrated. She was discharged home with a prescription for ondansetron and insructed to f/u with her PCP Counseled pt/family regarding: lab results, diagnosis, need for follow-up - Departure Departure Disposition: Home Clinical Impression: Nausea Condition: Stable Critical Care Time: No Referrals: EMELINA CASTRO [Primary Care Provider] - Instructions: Nausea and Vomiting, Adult (DC) Additional Instructions: Please go to schedule a follow up appointment with her primary care provider to be seen as soon as possible. Prescriptions: Ondansetron [Ondansetron Odt] 4 mg PO Q6-8HPRN PRN #20 tab.rapdis PRN Reason: Nausea/Vomiting
[2019-09-26] MEDS ORDERED: Zofran 4 MG/2 ML VIAL IV ONE (19:43)
[2019-09-26] MEDS ORDERED: Zofran 4 MG/2 ML VIAL ONE (19:59)
[2019-09-26 20:03] LABS: Hematocrit 36.1 % (35-47); Hemoglobin 11.8 gm/dl (12.0-16.0); Mean Cell Volume 88.5 fl (78-100); Mean Corpuscular Hemoglobin 28.9 pg (26-32); Mean Corpuscular Hgb Concent. 32.7 g/dl (32-36); Platelet Count 264 K/mm3 (150-450); Red Blood Count 4.08 M/mm3 (4.1-5.4); White Blood Count 8.2 K/mm3 (4.0-10.5)
[2019-09-26 20:16] LABS: ALBUMIN 4.3 g/dL (3.5-5.0); ANION GAP 15.2 MEQ/L (5-15); BILIRUBIN,TOTAL 0.6 mg/dL (0.2-1.3); Calcium 9.6 mg/dL (8.4-10.2); Creatinine 1 0.99 mg/dL (0.52-1.04); Direct Bilirubin 0.2 mg/dL (0.0-0.4); Potassium 4.5 mmol/L (3.5-5.1); Total Protein 7.8 g/dL (6.3-8.2)
[2019-09-26 21:23] VITALS: O2SAT 98
[2019-09-26 21:39] LABS: Eosinophil 1 % (0.00-3.0); Lymphocytes 24 % (24-44); Monocyte 1 % (0.0-12.0); Neutrophils 74 % (36.0-66.0); Platelet Estimate NORMAL (NORMAL); Total Cells Counted 100
[2019-09-26 21:40] LABS: ANISOCYTOSIS 2+; Burr Cells 1+; Hypochromia 2+; Poikilocytosis 3+; Toxic Granulation 2+
[2019-09-26 21:48] VITALS: BP 123/63; PULSE 63
== END 2019-09-26 21:47 | disposition home or self-care (01) ==
LOC: ED 17:23
DX: R11.0 Nausea (principal)
CPT/HCPCS: 36000; 36415; 80048; 80076; 83690; 84484; 85025; 93005; 96374; 99284; J2405

== ENCOUNTER 2019-12-30 11:25 | Emergency (ER) | payer MEDICARE ==
[2019-12-30] MEDS ORDERED: Sodium Chloride 0.9% 1000 ML 1,000 ML IV STA (11:53)
[2019-12-30] MEDS ORDERED: BABY ASPIRIN 81 MG CHEW PO ONE (11:53)
[2019-12-30] MEDS ORDERED: Inapsine 5 MG/2 ML IV ONE (11:53)
[2019-12-30] MEDS ORDERED: BENADRYL 50 MG/ML IV ONE (11:53)
[2019-12-30] MEDS ORDERED: BENADRYL 50 MG/ML ONE (11:59)
[2019-12-30] MEDS ORDERED: Inapsine 5 MG/2 ML ONE (11:59)
[2019-12-30] MEDS ORDERED: BABY ASPIRIN 81 MG CHEW ONE (11:59)
[2019-12-30] MEDS ORDERED: Sodium Chloride 0.9% 1000 ML 1,000 ML ONE (11:59)
[2019-12-30 12:08] LABS: BASOPHIL % 0.3 % (0.0-0.4); Basophil (Absolute #) 0.02 (0-0.4); Eosinophil % 1.5 % (0.00-5.0); Eosinophil (Absolute #) 0.12 (0-0.5); Hematocrit 38.4 % (35-47); Hemoglobin 12.4 gm/dl (12.0-16.0); Lymphocytes % 21.4 % (24.0-44.0); Mean Cell Volume 89.1 fl (78-100); Mean Corpuscular Hemoglobin 28.8 pg (26-32); Mean Corpuscular Hgb Concent. 32.3 g/dl (32-36); Mean Platelet Volume 10.2 fl (7.5-11.0); Monocytes % 8.8 % (0.0-12.0); Platelet Count 223 K/mm3 (150-450); Red Blood Count 4.31 M/mm3 (4.1-5.4); Red Cell Distribution Width 14.4 % (11.5-14.0); White Blood Count 7.9 K/mm3 (4.0-10.5)
--- NOTE | 2019-12-30 12:08 | ERPHSYRPT ---
- History of Present Illness Time Seen by Provider: 12/30/19 11:31 Source: patient Exam Limitations: no limitations Patient Subjective Stated Complaint: Back pain Triage Nursing Assessment: Patient brought back to ED via w/c and transferred to bed with assist of 1. Patient A+O X 3 with intermittent confusion. Patient states she fell 10 days ago causing back pain to right upper back. Patient states the past few days her pain is consant aching with intermittent sharp pain 8/10. No visible bruising or injury noted. Patient states prior to coming into ED she was having palipations and chest pain, but currently denies chest pain. Lungs clear a/p zonia. Heart tones audible. Physician History: Patient is here with right flank and right upper back pain. Patient states that she had a fall 10 days ago in [place]. She states at that point in time he had a negative x-ray obtained. She returned to [place] after this. She did call her PCP. However, she did not see her PCP. Toradol was called in for her pain. On top of this, patient complains of some intermittent palpitations. She states that this occurred over the past few days. She denies any chest pain to me. Although, she told the nurse that she had chest pain yesterday. She currently has no chest pain, shortness of breath, nausea, vomiting. No other obvious anginal equivalents outside of her musculoskeletal right upper back pain. Location: right upper back and right flank Quality: sharp Radiation: none Severity: moderate Duration: 10 days Timing: after fall Modifying factors/associated signs and symptoms: Patient has no red flag symptoms for back pain today: No Loss of control of the bowel or bladder. No weakness or numbness in a leg or arm. No foot drop, disturbed gait. No high fever, no IV drug use. No saddle anaesthesia (numbness of the anus, perineum or genitals). No trauma or h/o cancer Allergies/Adverse Reactions: metoclopramide Allergy (Intermediate, Verified 12/30/19 11:33) dystonic symptoms morphine Allergy (Verified 12/30/19 11:33) states causes pain from head to toe and tingling from head to toe oxycodone [From Percocet] Allergy (Verified 12/30/19 11:33) sulfamethoxazole [From Bactrim] Allergy (Verified 04/24/20 11:33) trimethoprim [From Bactrim] Allergy (Verified 12/30/19 11:33) Home Medications: Atorvastatin Calcium [Lipitor] 80 mg PO DAILY 05/17/16 [History] Fluoxetine HCl [Prozac] 60 mg PO DAILY 05/17/16 [History] Aspirin EC 81 mg [Ecotrin 81 mg] 81 mg PO DAILY 12/08/18 [History] Ergocalciferol (Vitamin D2) [Vitamin D2] 1 tab PO WEEKLY 04/17/19 [History] Insulin Lispro [Humalog] 1 unit SQ UD 04/17/19 [History] Pantoprazole Sodium 40 mg PO DAILY 04/17/19 [History] Amlodipine Besylate 5 mg [Norvasc 5 mg] 5 mg PO QAM 09/26/19 [History] Insulin Glargine,Hum.rec.anlog [Touhiramo Solostar] 50 unit SQ QAM 09/26/19 [ History] Buspirone HCl 5 mg [Buspar 5 mg] 1 tab PO BID 12/30/19 [History] Hx Tetanus, Diphtheria Vaccination/Date Given: Yes Hx Influenza Vaccination/Date Given: Yes Hx Pneumococcal Vaccination/Date Given: Yes Immunizations Up to Date: Yes Travel Risk - International Travel Have you traveled outside of the country in past 3 weeks: No Have you or anyone close to you been diagnosed with or: No Do your reside in a community with a known COVID-19 case?: Yes If Yes where:: [facility] - Coronavirus Screening Has patient experienced Coronavirus symptoms: No - Review of Systems Constitutional: No Fever, No Chills Eyes: No Symptoms Ears, Nose, & Throat: No Symptoms Respiratory: No Cough, No Dyspnea Cardiac: No Chest Pain, No Edema, No Syncope Abdominal/Gastrointestinal: No Abdominal Pain, No Nausea, No Vomiting, No Diarrhea Genitourinary Symptoms: No Dysuria Musculoskeletal: Back Pain, No Neck Pain Skin: No Rash Neurological: No Dizziness, No Focal Weakness, No Sensory Changes Psychological: No Symptoms Endocrine: No Symptoms All Other Systems: Reviewed and Negative - Past Medical History Pertinent Past Medical History: Yes Neurological History: Migraines, Peripheral Neuropathy, Other ENT History: Cataracts Cardiac History: Angina, Myocardial Infarction ([place]), Other Respiratory History: No Pertinent History Endocrine Medical History: Diabetes Type II Musculoskeletal History: Arthritis GI Medical History: GERD History: No Pertinent History Psycho-Social History: Depression Female Reproductive Disorders: Other Other Medical History: 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 DENIES ANY ANGINA - Past Surgical History Past Surgical History: Yes Neuro Surgical History: No Pertinent History Cardiac: CABG, Cardiac Catheterization, Cardiac Stent, Pacemaker Respiratory: No Pertinent History Gastrointestinal: Cholecystectomy Genitourinary: No Pertinent History Musculoskeletal: Other Female Surgical History: Hysterectomy Other Surgical History: shoulder - Social History Smoking Status: Never smoker Exposure to second hand smoke: No Alcohol Use: None Drug Use: none Patient Lives Alone: No Significant Family History: heart disease, hypertension - Female History Hx Now: No - Nursing Vital Signs Nursing Vital Signs: Initial Vital Signs Pulse Rate 84 12/30/19 11:34 Respiratory Rate 18 12/30/19 11:34 Blood Pressure 115/75 12/30/19 11:34 O2 Sat by Pulse Oximetry 96 12/30/19 11:34 Pain Scale Pain Intensity 8 - Physical Exam General Appearance: no apparent distress, alert Eye Exam: PERRL/EOMI, eyes nml inspection Ears, Nose, Throat Exam: normal ENT inspection, TMs normal, pharynx normal, moist mucous membranes Neck Exam: normal inspection, non-tender, supple, full range of motion Respiratory Exam: normal breath sounds, lungs clear, No respiratory distress Cardiovascular Exam: regular rate/rhythm, normal heart sounds, normal peripheral pulses Gastrointestinal/Abdomen Exam: soft, normal bowel sounds, No tenderness, No mass Back Exam: normal inspection, normal range of motion, No CVA tenderness, No vertebral tenderness Extremity Exam: normal inspection, normal range of motion, pelvis stable Neurologic Exam: alert, oriented x 3, cooperative, normal mood/affect, nml cerebellar function, nml station & gait, sensation nml, No motor deficits Skin Exam: normal color, warm, dry, No rash Lymphatic Exam: No adenopathy SpO2 Interpretation: normal SpO2: 98 Comments: 12/30/19 12:06 Right upper back is normal on inspection. No obvious deformity, sensation intact , 2+ capillary refill, 2 point tactile discrimination intact. 5 out of 5 strength. Full range of motion without pain. Compartments are soft, nontender. Overlying skin shows no tenting, bruising, ecchymosis. Motor: There is no pronator drift of out-stretched arms. Muscle bulk and tone are normal. Strength is full bilaterally. Reflexes: Reflexes are 2+ and symmetric at the biceps, triceps, knees, and ankles. Plantar responses are flexor. Sensory: Light touch sense are intact in bilateral upper and lower extremities. There is no sign of neglect. Coordination: Rapid alternating movements are intact. There is no dysmetria on cxqriw-ay-[id number] and xucw-[id number]-rane. There are no abnormal or extraneous movements. Romberg is absent. Gait/Stance: Posture is normal. Gait is steady with normal steps, base, arm swing, and turning. Heel and toe walking are normal. Tandem gait is normal. - Course Nursing assessment & vital signs reviewed: Yes EKG Interpreted by Me: RATE, Sinus Rhythm Ordered Tests: Active Orders 24 hr Category Date Time Status EKG-ER Only STAT Care 12/30/19 11:53 Active IV Insertion STAT Care 12/30/19 11:53 Active Pulse Oximetry (ED) STAT Care 12/30/19 11:53 Active ABDOMEN AND PELVIS W CONTRAST [CT] Stat Exams 12/30/19 11:55 Completed CHEST WITH CONTRAST [CT] Stat Exams 12/30/19 11:53 Completed CBC W DIFF Stat Lab 12/30/19 11:55 Completed CMP Stat Lab 12/30/19 11:55 Completed CULTURE,URINE Stat Lab 12/30/19 12:16 Ordered CULTURE,URINE Stat Lab 12/30/19 12:16 Received NT PRO BNP Stat Lab 12/30/19 11:55 Completed TROPONIN Q3H Lab 12/30/19 11:55 Completed TROPONIN Q3H Lab 12/30/19 15:00 Ordered TROPONIN Q3H Lab 12/30/19 18:00 Ordered TROPONIN Q3H Lab 12/30/19 21:00 Ordered TROPONIN Q3H Lab 12/31/19 00:00 Ordered UA W/RFX UR CULTURE Stat Lab 12/30/19 12:16 Completed Medication Summary Discontinued Medications Generic Name Dose Route Start Last Admin Trade Name Freq PRN Reason Stop Dose Admin Aspirin 324 mg 12/30/19 11:53 12/30/19 12:07 Baby Aspirin 81 Mg Chew PO 12/30/19 11:54 324 mg STAT ONE Administration Aspirin Confirm 12/30/19 11:59 Baby Aspirin 81 Mg Chew Administered 12/30/19 12:00 Dose 324 mg .ROUTE .STK-MED ONE Diphenhydramine HCl 25 mg 12/30/19 11:53 12/30/19 12:04 Benadryl 50 Mg/Ml IV 12/30/19 11:54 25 mg STAT ONE Administration Diphenhydramine HCl Confirm 12/30/19 11:59 Benadryl 50 Mg/Ml Administered 12/30/19 12:00 Dose 50 mg .ROUTE .STK-MED ONE Droperidol 1.25 mg 12/30/19 11:53 12/30/19 12:03 Inapsine 5 Mg/2 Ml IV 12/30/19 11:54 1.25 mg STAT ONE Administration Droperidol Confirm 12/30/19 11:59 Inapsine 5 Mg/2 Ml Administered 12/30/19 12:00 Dose 5 mg .ROUTE .STK-MED ONE Sodium Chloride 1,000 mls @ 999 mls/hr 12/30/19 11:53 12/30/19 12:02 Sodium Chloride 0.9% 1000 Ml IV 12/30/19 12:53 999 mls/hr .Q1H1M STA Administration Sodium Chloride Confirm 12/30/19 11:59 Sodium Chloride 0.9% 1000 Ml Administered 12/30/19 12:00 Dose 1,000 mls @ ud .ROUTE .STK-MED ONE Lab/Rad Data: Laboratory Result Diagrams 12/30/19 11:55 12/30/19 11:55 Laboratory Results 12/30/19 12/30/19 12/30/19 Range/Units 12:16 11:55 11:55 WBC (4.0-10.5) K/mm3 RBC (4.1-5.4) M/mm3 Hgb (12.0-16.0) gm/dl Hct (35-47) % MCV (78-100) fl MCH (26-32) pg MCHC (32-36) g/dl RDW (11.5-14.0) % Plt Count (150-450) K/mm3 MPV (7.5-11.0) fl Gran % (36.0-66.0) % Eos # (Auto) (0-0.5) Absolute Lymphs (auto) (1.0-4.6) Absolute Monos (auto) (0.0-1.3) Lymphocytes % (24.0-44.0) % Monocytes % (0.0-12.0) % Eosinophils % (0.00-5.0) % Basophils % (0.0-0.4) % Absolute Granulocytes (1.4-6.9) Basophils # (0-0.4) Sodium 140 (137-145) mmol/L Potassium 3.8 (3.5-5.1) mmol/L Chloride 103 (98-107) mmol/L Carbon Dioxide 28 (22-30) mmol/L Anion Gap 12.5 (5-15) MEQ/L BUN 21 H (7-17) mg/dL Creatinine 0.75 (0.52-1.04) mg/dL Estimated GFR > 60.0 ML/MIN Glucose 95 (74-106) mg/dL Calcium 10.0 (8.4-10.2) mg/dL Total Bilirubin 0.80 (0.2-1.3) mg/dL AST 41 H (14-36) U/L ALT 41 H (0-35) U/L Alkaline Phosphatase 116 (38-126) U/L Troponin I < 0.012 (0.000-0.034) ng/mL NT-Pro-B Natriuret Pep 292 (0-900) pg/mL Serum Total Protein 7.9 (6.3-8.2) g/dL Albumin 4.3 (3.5-5.0) g/dL Urine Color YELLOW (YELLOW) Urine Appearance CLEAR (CLEAR) Urine pH 6.0 (5-6) Ur Specific [place] 1.010 (1.005-1.025) Urine Protein NEGATIVE (Negative) Urine Ketones NEGATIVE (NEGATIVE) Urine Blood SMALL (0-5) Wei/ul Urine Nitrite NEGATIVE (NEGATIVE) Urine Bilirubin NEGATIVE (NEGATIVE) Urine Urobilinogen 2 (0-1) mg/dL Ur Leukocyte Esterase NEGATIVE (NEGATIVE) Urine WBC (Auto) 3-5 (0-5) /HPF Urine RBC (Auto) 0-2 (0-2) /HPF U Hyaline Cast (Auto) 0-2 (0-2) /LPF U Epithel Cells (Auto) NONE (FEW) /HPF Urine Bacteria (Auto) MODERATE (NEGATIVE) /HPF Other Casts (Auto) NEGATIVE (NEGATIVE) /LPF Urine Culture Reflexed YES (NO) Urine Glucose NEGATIVE (NEGATIVE) mg/dL 12/30/19 Range/Units 11:55 WBC 7.9 (4.0-10.5) K/mm3 RBC 4.31 (4.1-5.4) M/mm3 Hgb 12.4 (12.0-16.0) gm/dl Hct 38.4 (35-47) % MCV 89.1 (78-100) fl MCH 28.8 (26-32) pg MCHC 32.3 (32-36) g/dl RDW 14.4 H (11.5-14.0) % Plt Count 223 (150-450) K/mm3 MPV 10.2 (7.5-11.0) fl Gran % 68.0 H (36.0-66.0) % Eos # (Auto) 0.12 (0-0.5) Absolute Lymphs (auto) 1.70 (1.0-4.6) Absolute Monos (auto) 0.70 (0.0-1.3) Lymphocytes % 21.4 L (24.0-44.0) % Monocytes % 8.8 (0.0-12.0) % Eosinophils % 1.5 (0.00-5.0) % Basophils % 0.3 (0.0-0.4) % Absolute Granulocytes 5.40 (1.4-6.9) Basophils # 0.02 (0-0.4) Sodium (137-145) mmol/L Potassium (3.5-5.1) mmol/L Chloride (98-107) mmol/L Carbon Dioxide (22-30) mmol/L Anion Gap (5-15) MEQ/L BUN (7-17) mg/dL Creatinine (0.52-1.04) mg/dL Estimated GFR ML/MIN Glucose (74-106) mg/dL Calcium (8.4-10.2) mg/dL Total Bilirubin (0.2-1.3) mg/dL AST (14-36) U/L ALT (0-35) U/L Alkaline Phosphatase (38-126) U/L Troponin I (0.000-0.034) ng/mL NT-Pro-B Natriuret Pep (0-900) pg/mL Serum Total Protein (6.3-8.2) g/dL Albumin (3.5-5.0) g/dL Urine Color (YELLOW) Urine Appearance (CLEAR) Urine pH (5-6) Ur Specific [place] (1.005-1.025) Urine Protein (Negative) Urine Ketones (NEGATIVE) Urine Blood (0-5) Wei/ul Urine Nitrite (NEGATIVE) Urine Bilirubin (NEGATIVE) Urine Urobilinogen (0-1) mg/dL Ur Leukocyte Esterase (NEGATIVE) Urine WBC (Auto) (0-5) /HPF Urine RBC (Auto) (0-2) /HPF U Hyaline Cast (Auto) (0-2) /LPF U Epithel Cells (Auto) (FEW) /HPF Urine Bacteria (Auto) (NEGATIVE) /HPF Other Casts (Auto) (NEGATIVE) /LPF Urine Culture Reflexed (NO) Urine Glucose (NEGATIVE) mg/dL - Progress Progress: improved Progress Note: 12/30/19 12:07 Differential diagnosis includes rib fracture, pneumothorax, STEMI, infection, pneumonia, pulmonary embolism. - We'll obtain basic labs, fluids, EKG, troponin, chest x-ray - I feel comfortable with one time negative troponin given symptoms have improved and started greater then 6 hours ago. - EKG shows no ST changes - my read. See full read below. - O2 saturations consistently greater than 95%. -CT scan of chest abdomen and pelvis looking for fractures, pneumothorax, pulmonary embolism, splenic lacerations, other signs of trauma. 12/30/19 13:39 Imaging largely unremarkable for trauma or other serious illness. UA does show possible UTI. Bladder shows possible UTI as well. Given this we will treat patient with an antibiotic. Patient is allergic to Bactrim and has a possible pyelonephritis. Therefore, we will use Levaquin today. Although there are some drawbacks to Levaquin it appears to be the best choice in this situation. I did warn the patient of the risks and benefits of Levaquin. She will follow- up with her PCP for reexam in 24 to 48 hours and urine culture at that point in time to try to adjust to the antibiotic choice. Counseled pt/family regarding: lab results, diagnosis, need for follow-up, rad results - Departure Departure Disposition: Home Clinical Impression: Pyelonephritis of right kidney, UTI (urinary tract infection) Condition: Stable Critical Care Time: No Referrals: EMELINA CASTRO [Primary Care Provider] - Instructions: Low Back Pain (DC) Prescriptions: Levofloxacin [Levaquin] 1 tab PO DAILY #7 tablet
[2019-12-30 12:26] VITALS: BP 118/75; PULSE 72
[2019-12-30 12:27] LABS: ALBUMIN 4.3 g/dL (3.5-5.0); ALKALINE PHOSPHATASE 116 U/L (38-126); ANION GAP 12.5 MEQ/L (5-15); BLOOD UREA NITROGEN 21 mg/dL (7-17); CHLORIDE 103 mmol/L (98-107); Carbon Dioxide 28 mmol/L (22-30); Creatinine 1 0.75 mg/dL (0.52-1.04); Glucose 95 mg/dL (74-106); NT PRO BNP 292 pg/mL (0-900); Potassium 3.8 mmol/L (3.5-5.1); SGOT/AST 41 U/L (14-36); SGPT/ALT 41 U/L (0-35); SODIUM 140 mmol/L (137-145); Total Protein 7.9 g/dL (6.3-8.2)
[2019-12-30 12:46] LABS: Appearance CLEAR (CLEAR); Bacteria MODERATE /HPF (NEGATIVE); Bilirubin NEGATIVE (NEGATIVE); Blood SMALL Ery/ul (0-5); Glucose NEGATIVE (NEGATIVE); Hyaline Casts 0-2 /LPF (0-2); Ketones NEGATIVE (NEGATIVE); Leukocyte Esterase NEGATIVE (NEGATIVE); Nitrite NEGATIVE (NEGATIVE); Protein,Urine Dip NEGATIVE (Negative); RBC 0-2 /HPF (0-2); Urobilinogen 2 mg/dL (0-1)
--- NOTE | 2019-12-30 13:32 | XRAY ---
Indication: Left chest pain 1 week. Multiple contiguous axial images through the chest using 80 cc SUV 370 contrast. Comparison: July 08, 2019. Lungs now demonstrates minimal bilateral dependent atelectasis. No suspicious pulmonary mass, infiltrate, or effusion. Heart is not enlarged again demonstrating CABG surgery and left-sided pacemaker. Aorta remains mildly arteriosclerotic without aneurysm/dissection. No pathologic mediastinal/hilar lymphadenopathy. Bony thorax intact again with osteopenia, mild degenerative changes throughout the spine, remote T2 compression fracture, and old right 2-[address] abdomen reported separately. Impression: Continued negative CT chest with contrast exam again demonstrating incidental CABG surgery, left pacemaker, and chronic bony findings.
--- NOTE | 2019-12-30 13:35 | XRAY ---
Indication: Right back pain following fall. Multiple contiguous axial images through the abdomen and pelvis using 80 cc SUV 370 contrast only as ordered. Comparison: None CT chest reported separately. Noncontrasted stomach and bowel loops appear nonobstructed. Normal appendix. Mild diffuse fecal debris greatest in the left hemicolon/sigmoid. Previous reported cholecystectomy and hysterectomy. No free fluid/air. Urinary bladder demonstrates intraluminal air either iatrogenic from recent catheterization versus gas-forming bacterial infection. Both kidneys enhance and excrete with bilateral extrarenal pelvises. No solid/cystic renal mass. A few tiny hepatic/splenic calcified granulomas. Remaining liver, pancreas, spleen, adrenal glands, kidneys, ureters, and bladder appear unremarkable. Moderate scattered vascular calcifications. No AAA or pathologic retroperitoneal lymphadenopathy. Osseous structures demonstrates L2 superior endplate concave deformity either prominent Schmorl node versus old fracture. Impression: 1. Mild fecal stasis without obstruction. 2. Urinary bladder intraluminal air, iatrogenic versus gas-forming bacterial infection. 3. L2 endplate concave deformity either prominent Schmorl node versus old fracture. 4. Remaining CT abdomen/pelvis with contrast exam negative.
[2019-12-30 13:41] VITALS: O2SAT 98
== END 2019-12-30 13:59 | disposition home or self-care (01) ==
LOC: ED 11:25
DX: N12 Tubulo-interstitial nephritis, not specified as acute or chronic (principal); N39.0 Urinary tract infection, site not specified; E11.9 Type 2 diabetes mellitus without complications; Z79.4 Long term (current) use of insulin; G62.9 Polyneuropathy, unspecified; Z79.899 Other long term (current) drug therapy; I25.2 Old myocardial infarction; M19.90 Unspecified osteoarthritis, unspecified site; K21.9 Gastro-esophageal reflux disease without esophagitis; F32.9 Major depressive disorder, single episode, unspecified; Z95.0 Presence of cardiac pacemaker
CPT/HCPCS: 36000; 36415; 71260; 74177; 80053; 81001; 83880; 84484; 85025; 87077; 87086; 87186; 93005; 94760; 96360; 96374; 96375; 99284; J1200; A9270-GY

== ENCOUNTER 2020-01-01 12:19 | Emergency (ER) | payer MEDICARE ==
[2020-01-01] MEDS ORDERED: Hydromorphone 1 mg/ml Ampule IV ONE (13:12)
[2020-01-01] MEDS ORDERED: Phenergan 25 MG INJ IM ONE (13:12)
[2020-01-01] MEDS ORDERED: Pepcid 20 MG VIAL IV ONE ×2 (13:12→13:27)
--- NOTE | 2020-01-01 13:12 | ERPHSYRPT ---
- History of Present Illness Time Seen by Provider: 01/01/20 12:52 Source: patient Exam Limitations: no limitations Patient Subjective Stated Complaint: Pt states "I was just here and diagnosed with a UTI and given levoquin. Last night my back hurt so bad I could not get comfortable." Triage Nursing Assessment: Pt presented alert and oriented X 3, skin pwd. Pt ambulates with an upright steady gait, able to speak in clear full sentencse pt in no apparent respriatory distress. Pt stands from sitting position easily with no wincing or groaning. Physician History: 69 years old female with multiple medical problems including coronary artery disease status post CABG, sick sinus syndrome with pacemaker placement, hypertension, hyperlipidemia presented in the ER with chief complaint of nausea vomiting and some upper abdominal pain along with worsening chronic back pain. Patient reports she fell on right side almost a month ago and since then she is having chronic pain in the right scapular area, moderate intensity, sharp in nature, more with movements and applying pressure and better with taking pain medication. She is also complaining of upper abdominal pain off and on associated with nausea and occasional vomiting. She vomited twice yesterday, nonprojectile, nonbilious with no hematemesis. No lower abdominal pain or diarrhea reported. Denies any chest pain otherwise, no shortness of breath. No fever or chills reported. Patient was seen in the ER day before yesterday with thorough work-up including CT chest and abdomen, was here for similar symptoms, was found out to have UTI and started on Levaquin and her culture came back positive today for Klebsiella pneumonia sensitive to Levaquin. She denies any fever. Patient reports she has taken Tylenol and ibuprofen at home with no significant relief and want something stronger for pain. Allergies/Adverse Reactions: metoclopramide Allergy (Intermediate, Verified 12/30/19 11:33) dystonic symptoms morphine Allergy (Verified 12/30/19 11:33) states causes pain from head to toe and tingling from head to toe oxycodone [From Percocet] Allergy (Verified 12/30/19 11:33) sulfamethoxazole [From Bactrim] Allergy (Verified 12/30/19 11:33) trimethoprim [From Bactrim] Allergy (Verified 12/30/19 11:33) Home Medications: Atorvastatin Calcium [Lipitor] 80 mg PO DAILY 05/17/16 [History] Fluoxetine HCl [Prozac] 60 mg PO DAILY 05/17/16 [History] Aspirin EC 81 mg [Ecotrin 81 mg] 81 mg PO DAILY 12/08/18 [History] Ergocalciferol (Vitamin D2) [Vitamin D2] 1 tab PO WEEKLY 04/17/19 [History] Insulin Lispro [Humalog] 1 unit SQ UD 04/17/19 [History] Pantoprazole Sodium 40 mg PO DAILY 04/17/19 [History] Amlodipine Besylate 5 mg [Norvasc 5 mg] 5 mg PO QAM 09/26/19 [History] Insulin Glargine,Hum.rec.anlog [Toujeo Solostar] 50 unit SQ QAM 09/26/19 [ History] Buspirone HCl 5 mg [Buspar 5 mg] 1 tab PO BID 12/30/19 [History] Hx Tetanus, Diphtheria Vaccination/Date Given: Yes Hx Influenza Vaccination/Date Given: Yes Hx Pneumococcal Vaccination/Date Given: Yes Immunizations Up to Date: Yes Travel Risk - International Travel Have you traveled outside of the country in past 3 weeks: No (n) Have you or anyone close to you been diagnosed with or: No Do your reside in a community with a known COVID-19 case?: Yes If Yes where:: [place] - Coronavirus Screening Has patient experienced Coronavirus symptoms: No - Review of Systems Constitutional: No Symptoms Eyes: No Symptoms Ears, Nose, & Throat: No Symptoms Respiratory: No Symptoms Cardiac: No Symptoms Abdominal/Gastrointestinal: Abdominal Pain, Nausea, Vomiting Genitourinary Symptoms: No Symptoms Musculoskeletal: Back Pain, Fall, Myalgias Skin: No Symptoms Neurological: No Symptoms Endocrine: No Symptoms Hematologic/Lymphatic: No Symptoms Immunological/Allergic: No Symptoms All Other Systems: Reviewed and Negative - Past Medical History Pertinent Past Medical History: Yes Neurological History: Migraines, Peripheral Neuropathy, Other ENT History: Cataracts Cardiac History: Angina, Myocardial Infarction (DC), Other Respiratory History: No Pertinent History Endocrine Medical History: Diabetes Type II Musculoskeletal History: Arthritis GI Medical History: GERD History: No Pertinent History Psycho-Social History: Depression Female Reproductive Disorders: Other Other Medical History: CABG X 6 04/2016 AFTER DC. PATIENT REPORTS BYPASSES HAVE CLOSED OFF AND F/U WITH [employer]. DENIES ANY ANGINA - Past Surgical History Past Surgical History: Yes Neuro Surgical History: No Pertinent History Cardiac: CABG, Cardiac Catheterization, Cardiac Stent, Pacemaker Respiratory: No Pertinent History Gastrointestinal: Cholecystectomy Genitourinary: No Pertinent History Musculoskeletal: Other Female Surgical History: Hysterectomy Other Surgical History: shoulder - Social History Smoking Status: Never smoker Exposure to second hand smoke: No Alcohol Use: None Drug Use: none Patient Lives Alone: No Significant Family History: heart disease, hypertension - Female History Hx Now: No - Nursing Vital Signs Nursing Vital Signs: Initial Vital Signs Temperature 97.5 F 01/01/20 12:34 Pulse Rate 82 01/01/20 12:34 Respiratory Rate 18 01/01/20 12:34 Blood Pressure 141/85 01/01/20 12:34 O2 Sat by Pulse Oximetry 99 01/01/20 12:34 Pain Scale Pain Intensity [Right Upper 8 Back] Pain Intensity 0 - Physical Exam General Appearance: no apparent distress Eye Exam: PERRL/EOMI, eyes nml inspection Ears, Nose, Throat Exam: normal ENT inspection, TMs normal, pharynx normal Neck Exam: normal inspection, non-tender, supple, full range of motion Respiratory Exam: normal breath sounds, chest tenderness (Mild tenderness right scapular area and below it. No crepitus, no rash, no swelling.), lungs clear, No respiratory distress Cardiovascular Exam: regular rate/rhythm, normal heart sounds, normal peripheral pulses Gastrointestinal/Abdomen Exam: soft, normal bowel sounds, tenderness (Mild epigastric tenderness), No mass, No guarding Back Exam: normal inspection, normal range of motion Neurologic Exam: alert, oriented x 3, cooperative Skin Exam: normal color, warm, dry SpO2 Interpretation: normal SpO2: 99 O2 Delivery: Room Air - Course Nursing assessment & vital signs reviewed: Yes Ordered Tests: Active Orders 24 hr Category Date Time Status IV Insertion STAT Care 01/01/20 13:12 Active CBC W DIFF Stat Lab 01/01/20 13:29 Completed CMP Stat Lab 01/01/20 13:29 Completed LIPASE Stat Lab 01/01/20 13:29 Completed TROPONIN Q3H Lab 01/01/20 13:29 Completed TROPONIN Q3H Lab 01/01/20 16:15 Ordered TROPONIN Q3H Lab 01/01/20 19:15 Ordered TROPONIN Q3H Lab 01/01/20 22:15 Ordered TROPONIN Q3H Lab 01/02/20 01:15 Ordered Medication Summary Discontinued Medications Generic Name Dose Route Start Last Admin Trade Name Maribell PRN Reason Stop Dose Admin Famotidine 20 mg 01/01/20 13:12 01/01/20 13:34 Pepcid 20 Mg Vial IV 01/01/20 13:13 20 mg STAT ONE Administration Famotidine Confirm 01/01/20 13:27 Pepcid 20 Mg Vial Administered 01/01/20 13:28 Dose 20 mg IV .STK-MED ONE Hydromorphone HCl 0.5 mg 01/01/20 13:12 01/01/20 13:34 Hydromorphone 1 Mg/Ml Ampule IV 01/01/20 13:13 0.5 mg STAT ONE Administration Hydromorphone HCl Confirm 01/01/20 13:28 Hydromorphone 1 Mg/Ml Ampule Administered 01/01/20 13:29 Dose 1 mg .ROUTE .STK-MED ONE Sodium Chloride 500 mls @ 499 mls/hr 01/01/20 13:12 01/01/20 14:39 Sodium Chloride 0.9% 1000 Ml IV 01/01/20 14:12 Infused .Q1H1M STA Infusion Sodium Chloride Confirm 01/01/20 13:28 Sodium Chloride 0.9% 1000 Ml Administered 01/01/20 13:29 Dose 1,000 mls @ ud .ROUTE .STK-MED ONE Promethazine HCl 12.5 mg 01/01/20 13:12 01/01/20 13:32 Phenergan 25 Mg Inj IM 01/01/20 13:13 12.5 mg STAT ONE Administration Promethazine HCl Confirm 01/01/20 13:27 Phenergan 25 Mg Inj Administered 01/01/20 13:28 Dose 25 mg .ROUTE .STK-MED ONE Lab/Rad Data: Laboratory Result Diagrams 01/01/20 13:29 01/01/20 13:29 Laboratory Results 01/01/20 01/01/20 01/01/20 Range/Units 13:29 13:29 13:29 WBC 5.6 (4.0-10.5) K/mm3 RBC 4.02 L (4.1-5.4) M/mm3 Hgb 11.7 L (12.0-16.0) gm/dl Hct 35.9 (35-47) % MCV 89.3 (78-100) fl MCH 29.1 (26-32) pg MCHC 32.6 (32-36) g/dl RDW 14.1 H (11.5-14.0) % Plt Count 209 (150-450) K/mm3 MPV 9.4 (7.5-11.0) fl Gran % 70.4 H (36.0-66.0) % Eos # (Auto) 0.07 (0-0.5) Absolute Lymphs (auto) 1.10 (1.0-4.6) Absolute Monos (auto) 0.47 (0.0-1.3) Lymphocytes % 19.7 L (24.0-44.0) % Monocytes % 8.4 (0.0-12.0) % Eosinophils % 1.3 (0.00-5.0) % Basophils % 0.2 (0.0-0.4) % Absolute Granulocytes 3.93 (1.4-6.9) Basophils # 0.01 (0-0.4) Sodium 138 (137-145) mmol/L Potassium 4.7 (3.5-5.1) mmol/L Chloride 104 (98-107) mmol/L Carbon Dioxide 27 (22-30) mmol/L Anion Gap 12.1 (5-15) MEQ/L BUN 14 (7-17) mg/dL Creatinine 0.74 (0.52-1.04) mg/dL Estimated GFR > 60.0 ML/MIN Glucose 139 H (74-106) mg/dL Calcium 9.8 (8.4-10.2) mg/dL Total Bilirubin 0.80 (0.2-1.3) mg/dL AST 40 H (14-36) U/L ALT 36 H (0-35) U/L Alkaline Phosphatase 87 (38-126) U/L Troponin I < 0.012 (0.000-0.034) ng/mL Serum Total Protein 7.2 (6.3-8.2) g/dL Albumin 4.0 (3.5-5.0) g/dL Lipase 37 (23-300) U/L - Progress Progress: improved, re-examined Progress Note: 01/01/20 15:58 69 years old is evaluated for abdominal pain, vomiting, some pain in the right scapular area. She has some tenderness on palpation. She is given pain medication per her request Dilaudid and is feeling better. I have repeated baseline labs which showed normal. She does not have any chest pain or trouble breathing. She has a CT chest and abdomen done day before yesterday with no acute findings and pain symptoms are similar to previous. She does have UTI and currently on Levaquin which she is sensitive to and is recommended to continue with that. I do not think she needs another imaging today. I have offered her pain medication to go home and follow-up outpatient with primary care as patient has been taking some ibuprofen is having some acid reflux kind of epigastric pain. Patient is thoroughly counseled. Recommended outpatient follow-up which she is going to do. Discussed signs symptoms of worsening needing return which she seems understanding. Stable for discharge. Counseled pt/family regarding: lab results, diagnosis, need for follow-up - Departure Departure Disposition: Home Clinical Impression: Upper abdominal pain Back pain Qualifiers: Back pain location: thoracic back pain Chronicity: chronic Back pain laterality : right Qualified Code(s): M54.6 - Pain in thoracic spine; G89.29 - Other chronic pain Condition: Stable Critical Care Time: No Referrals: EMELINA CASTRO [Primary Care Provider] - (1-2 days for re evaluation) Instructions: Low Back Pain (DC), Acute Abdomen (Belly Pain), Adult (DC) Additional Instructions: Take pain medication and Zofran as needed. Follow-up with your primary care for reevaluation. Continue with Levaquin for urinary tract infection and follow -up with PCP for recheck of your urine. Return to ER for any worsening. Prescriptions: Hydrocodone/APAP 5-325 Tab^^^ [[place] 5-325 Tablet^^^] 1 tab PO Q6HPRN PRN #7 tablet MDD 6 PRN Reason: Pain
[2020-01-01] MEDS ORDERED: Phenergan 25 MG INJ ONE (13:27)
[2020-01-01] MEDS ORDERED: Hydromorphone 1 mg/ml Ampule ONE (13:28)
[2020-01-01] MEDS ORDERED: Sodium Chloride 0.9% 1000 ML 1,000 ML ONE (13:28)
[2020-01-01 13:30] LABS: Absolute Neutrophil Ct (ANC) 3.93 (1.4-6.9); BASOPHIL % 0.2 % (0.0-0.4); Basophil (Absolute #) 0.01 (0-0.4); Eosinophil % 1.3 % (0.00-5.0); Eosinophil (Absolute #) 0.07 (0-0.5); Hematocrit 35.9 % (35-47); Hemoglobin 11.7 gm/dl (12.0-16.0); Lymphocytes % 19.7 % (24.0-44.0); Mean Cell Volume 89.3 fl (78-100); Mean Corpuscular Hemoglobin 29.1 pg (26-32); Mean Corpuscular Hgb Concent. 32.6 g/dl (32-36); Mean Platelet Volume 9.4 fl (7.5-11.0); Monocyte (Absolute #) 0.47 (0.0-1.3); Monocytes % 8.4 % (0.0-12.0); Neutrophil % 70.4 % (36.0-66.0); Platelet Count 209 K/mm3 (150-450); Red Blood Count 4.02 M/mm3 (4.1-5.4); Red Cell Distribution Width 14.1 % (11.5-14.0); White Blood Count 5.6 K/mm3 (4.0-10.5)
[2020-01-01 13:49] LABS: ALKALINE PHOSPHATASE 87 U/L (38-126); ANION GAP 12.1 MEQ/L (5-15); BLOOD UREA NITROGEN 14 mg/dL (7-17); CHLORIDE 104 mmol/L (98-107); Calcium 9.8 mg/dL (8.4-10.2); Carbon Dioxide 27 mmol/L (22-30); Creatinine 1 0.74 mg/dL (0.52-1.04); Glucose 139 mg/dL (74-106); LIPASE 37 U/L (23-300); Potassium 4.7 mmol/L (3.5-5.1); SGOT/AST 40 U/L (14-36); SGPT/ALT 36 U/L (0-35); SODIUM 138 mmol/L (137-145); Total Protein 7.2 g/dL (6.3-8.2)
[2020-01-01 15:59] VITALS: BP 105/69; PULSE 76; O2SAT 99
== END 2020-01-01 16:13 | disposition home or self-care (01) ==
LOC: ED 12:19
DX: R10.10 Upper abdominal pain, unspecified (principal); M54.6 Pain in thoracic spine; G89.29 Other chronic pain; F45.42 Pain disorder with related psychological factors; Z79.899 Other long term (current) drug therapy; E11.9 Type 2 diabetes mellitus without complications; G62.9 Polyneuropathy, unspecified; I25.2 Old myocardial infarction; K21.9 Gastro-esophageal reflux disease without esophagitis; F32.9 Major depressive disorder, single episode, unspecified; I25.810 Atherosclerosis of coronary artery bypass graft(s) without angina pectoris
CPT/HCPCS: 36000; 36415; 80053; 83690; 84484; 85025; 96360; 96372; 96374; 96375; 99284; J1170; J2550